=== PATIENT | female | born 1935 | race Caucasian/White ===

== ENCOUNTER → 2016-09-16 | Outpatient (CLI) | payer MEDICARE ==
--- NOTE | 2016-09-16 14:16 | MM ---
Reason for exam: screening (asymptomatic). Last mammogram was performed 1 year and 1 month ago. History: Patient is postmenopausal. Family history of breast cancer in paternal aunt at age 70. Benign stereotactic core biopsy of the right breast, March 23, 1999. Core biopsy of the right breast. Took hormonal contraceptives for 3 years. Physical Findings: A clinical breast exam by your physician is recommended on an annual basis and results should be correlated with mammographic findings. MG Screening Mammo w CAD Bilateral CC and MLO view(s) were taken. Prior study comparison: August 18, 2015, bilateral MG screening mammo w CAD. July 14, 2014, bilateral MG screening mammo w CAD. There are scattered fibroglandular densities. Finding: There are typically benign vascular, round calcifications in both breasts. Previous mammotome biopsy in the right breast. There is no discrete abnormality. ASSESSMENT: Benign, BI-RAD 2 RECOMMENDATION: Routine screening mammogram of both breasts in 1 year.
== END | disposition home or self-care (01) ==
LOC: RADMAMWWP 10:36
PROVIDERS: ATTEND Internal Medicine
DX: Z12.31 Encounter for screening mammogram for malignant neoplasm of breast (principal)

== ENCOUNTER → 2016-12-16 | Outpatient (CLI) | payer MEDICARE | END | disposition home or self-care (01) | LOC: LABWHC1 12:41 → EDSTATUS 12:59 | PROVIDERS: ATTEND Internal Medicine | DX: Z00.00 Encounter for general adult medical examination without abnormal findings (principal); E87.8 Other disorders of electrolyte and fluid balance, not elsewhere classified; E78.5 Hyperlipidemia, unspecified; I10 Essential (primary) hypertension; M81.0 Age-related osteoporosis without current pathological fracture; E55.9 Vitamin D deficiency, unspecified | CPT/HCPCS: 36415; 82272 ==

== ENCOUNTER → 2016-12-21 | Outpatient (CLI) | payer MEDICARE ==
[2016-12-21 10:28] LABS: Basophils # (A) 0.1 k/uL (0-0.2); Basophils % (A) 1 %; CH 31.9; CHCM 32.8; Eosinophils # (A) 0.1 k/uL (0-0.7); Eosinophils % (A) 1 %; HDW 2.23; HGB 13.1 gm/dL (11.4-16.0); Luc # (Auto) 0.14; Luc % (Auto) 2; Lymphocytes # (A) 1.2 k/uL (1.0-4.8); Lymphocytes % (A) 19 %; MCH 31.8 pg (25.0-35.0); MCHC 32.6 g/dL (31.0-37.0); MCV 97.6 fL (80.0-100.0); Mean Platelet Volume 7.7; Monocytes # (A) 0.4 k/uL (0-1.0); Monocytes % (A) 6 %; Neutrophils # (A) 4.4 k/uL (1.3-7.7); Neutrophils % (A) 70 %; RDW 13.1 % (11.5-15.5); WBC 6.2 k/uL (3.8-10.6); WBC (Perox) 6.11
[2016-12-21 10:41] LABS: ALT 25 U/L (9-52); AST 28 U/L (14-36); Alkaline Phosphatase 64 U/L (38-126); Blood Urea Nitrogen 33 mg/dL (7-17); Calcium 9.9 mg/dL (8.4-10.2); Carbon Dioxide 28 mmol/L (22-30); Chloride 107 mmol/L (98-107); Cholesterol 233 mg/dL (<200); Creatine Kinase 417 U/L (30-135); Glucose 106 mg/dL (74-99); HDL Cholesterol 67 mg/dL (40-60); Non-African American GFR(MDRD) 38 (>60 ml/min/1.73 sqM); Potassium 5.8 mmol/L (3.5-5.1); Total Bilirubin 0.7 mg/dL (0.2-1.3); Total Protein 7.5 g/dL (6.3-8.2); Triglycerides 154 mg/dL (<150)
[2016-12-21 10:44] LABS: Anion Gap 7 mmol/L; Sodium 142 mmol/L (137-145)
[2016-12-21 12:06] LABS: Hemoglobin A1C 5.9 % (4.2-6.1)
[2016-12-21 14:12] LABS: C Reactive Protein <5.0 mg/L (<10.0)
[2016-12-21 14:32] LABS: Erythrocyte Sedimentation Rate 17 mm/hr (0-20)
== END | disposition home or self-care (01) ==
LOC: LABWHC1 09:32
PROVIDERS: ATTEND Internal Medicine
DX: Z00.00 Encounter for general adult medical examination without abnormal findings (principal); E87.8 Other disorders of electrolyte and fluid balance, not elsewhere classified; E78.5 Hyperlipidemia, unspecified; I10 Essential (primary) hypertension; M81.0 Age-related osteoporosis without current pathological fracture; E55.9 Vitamin D deficiency, unspecified
CPT/HCPCS: 36415; 80053; 80061; 82306; 82550; 83036; 84443; 85025; 85652; 86140

== ENCOUNTER → 2017-01-11 | Outpatient (CLI) | payer MEDICARE ==
--- NOTE | 2017-01-11 13:52 | US ---
EXAMINATION TYPE: US kidneys/renal and bladder DATE OF EXAM: 01/11/2017 COMPARISON: NONE CLINICAL HISTORY: N18.3 Chronic Kidney Disease Stage 3, N13.9 Obstructive Uropathy,. EXAM MEASUREMENTS: Right Kidney: 8.9 x 5.7 x 4.4 cm Left Kidney: 8.9 x 4.1m x 5.1 cm Post Void Residual Volume: 17.3 mL Right Kidney: No hydronephrosis or masses seen Left Kidney: No hydronephrosis or masses seen Bladder: Bilateral Jets seen: only right jet was seen after 3 minute observation Normal Post Void Residual: Yes There is no evidence for hydronephrosis at this point in time. No nephrolithiasis is seen. No abdi s are identified on images saved. The urinary bladder is not greatly distended. Distal left jet is not seen. IMPRESSION: Kidneys are symmetric and slightly small in size, no hydronephrosis is evident bilaterally.
[2017-01-11 14:18] LABS: Magnesium 1.7 mg/dL (1.6-2.3); Potassium 4.2 mmol/L (3.5-5.1)
== END | disposition home or self-care (01) ==
LOC: RADUSWWP 12:35
PROVIDERS: ATTEND Internal Medicine
DX: N27.1 Small kidney, bilateral (principal); N18.3 Chronic kidney disease, stage 3 (moderate); N13.9 Obstructive and reflux uropathy, unspecified; E87.5 Hyperkalemia
CPT/HCPCS: 36415; 76770; 83735; 84132

== ENCOUNTER → 2017-07-12 | Outpatient (CLI) | payer MEDICARE | END | disposition home or self-care (01) | LOC: LABWHC1 11:30 | PROVIDERS: ATTEND Internal Medicine | DX: E55.9 Vitamin D deficiency, unspecified (principal); E53.8 Deficiency of other specified B group vitamins | CPT/HCPCS: 36415; 82306; 82607 ==

== ENCOUNTER → 2018-07-25 | Outpatient (CLI) | payer MEDICARE ==
--- NOTE | 2018-07-26 08:50 | MM ---
Reason for exam: screening (asymptomatic). Last mammogram was performed 1 year and 10 months ago. History: Patient is postmenopausal. Family history of breast cancer in paternal aunt at age 70. Benign stereotactic core biopsy of the right breast, March 23, 1999. Core biopsy of the right breast. Took hormonal contraceptives for 3 years. Physical Findings: A clinical breast exam by your physician is recommended on an annual basis and results should be correlated with mammographic findings. MG Screening Mammo w CAD Bilateral CC and MLO view(s) were taken. Prior study comparison: September 16, 2016, bilateral MG screening mammo w CAD. August 18, 2015, bilateral MG screening mammo w CAD. The breast tissue is heterogeneously dense. This may lower the sensitivity of mammography. There are benign appearing round calcifications bilaterally. Previous mammotome biopsy in the right breast. There is no discrete abnormality. ASSESSMENT: Benign, BI-RAD 2 RECOMMENDATION: Routine screening mammogram of both breasts in 1 year.
== END | disposition home or self-care (01) ==
LOC: RADMAMWWP 11:04
PROVIDERS: ATTEND Internal Medicine
DX: Z12.31 Encounter for screening mammogram for malignant neoplasm of breast (principal)
CPT/HCPCS: 77067

== ENCOUNTER → 2019-05-07 | Outpatient (CLI) | payer MEDICARE ==
--- NOTE | 2019-05-07 13:04 | US ---
EXAMINATION TYPE: US carotid duplex BILAT DATE OF EXAM: 05/07/2019 COMPARISON: NONE CLINICAL HISTORY: I65.2 carotid bruit. Right carotid bruit per order EXAM MEASUREMENTS: RIGHT: Peak Systolic Velocity (PSV) cm/sec ----- Right CCA: 67.7 ----- Right ICA: 125.4 ----- Right ECA: 190.5 ICA/CCA ratio: 1.9 RIGHT: End Diastole cm/sec ----- Right CCA: 18.4 ----- Right ICA: 32.7 ----- Right ECA: 20.9 LEFT: Peak Systolic Velocity (PSV) cm/sec ----- Left CCA: 60.2 ----- Left ICA: 86.3 ----- Left ECA: 79.6 ICA/CCA ratio: 1.4 LEFT: End Diastole cm/sec ----- Left CCA: 14.8 ----- Left ICA: 25.4 ----- Left ECA: 0.0 VERTEBRALS (direction of flow): Right Vertebral: Antegrade Left Vertebral: Antegrade Rhythm: Normal Moderate, irregular plaques is imaged at bilateral carotid bifurcation, and abnormally elevated PSV i s noted in Right ICA and Right ECA. IMPRESSION: 1. 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 CTA neck is recommended for more asse ssment of degree of stenosis. 2. No sonographic evidence of hemodynamically significant stenosis within the visualized left carotid arterial system. Criteria for Assigning % of Stenosis / Diameter reduction (Estimation based on the indirect measurements of the internal carotid artery velocities (ICA PSV). 1. Normal (no stenosis)=ICA PSV < 125 cm/s: ratio < 2.0: ICA EDV<40 cm/s. 2. Less than 50% stenosis=ICA PSV < 125 cm/s: ratio < 2.0: ICA EDV<40 cm/s. 3. 50 to 69% stenosis=ICA PSV of 125 to 230 cm/s: ration 2.0 ? 4.0: ICA EDV 40-100 cm/s. 4. Greater than 70% stenosis to near occlusion= ICA PSV > 230 cm/s: ratio > 4.0: ICA EDV > 100 cm/s. 5. Near occlusion= ICA PSV velocities may be low or undetectable: variable ratio and ICA EDV. 6. Total occlusion=unable to detect flow.
[2019-05-07 17:30] LABS: Protein, Total 6.8 g/dL (6.2-8.2)
[2019-05-07 17:55] LABS: Rheumatoid Factor <4 IU/mL (0-15)
[2019-05-07 19:38] LABS: Hemoglobin A1C 5.8 % (4.0-6.0)
--- NOTE | 2019-05-08 08:43 | MR ---
EXAMINATION TYPE: MR brain wo con DATE OF EXAM: 05/07/2019 COMPARISON: NONE HISTORY: gait abnormality TECHNIQUE: Multiplanar, multisequence images of the brain and brainstem is performed without intravenous contras t. FINDINGS: Diffusion weighted images demonstrate no evidence of a recent infarct or other diffusion ab normality. There is no extra-axial fluid collection. The ventricular system and cisternal spaces are prominent with the degree of ventricular dilatation slightly larger than expected for the degree of sulcal prominence. Findings raise suspicion for normal pressure hydrocephalus as the cerebral aqueduc t appears patent as is the fourth ventricle. Pituitary gland appears within normal limits of size. Th ere is no cerebellar tonsillar ectopia seen. No flattening of the globes. No findings suggesting incr eased intracranial pressure. There is an extra-axial lesion that is isointense to rudolph matter on T2-weighted imaging and FLAIR seq uences most likely related to a benign meningioma. This is seen in the left frontal region on FLAIR a nd axial fat sat image 20 measuring 0.9 x 0.5 cm. There are confluent periventricular T2/hyperintense white matter changes and numerous other scattered foci within the deep white matter and juxtacortical white matter, overall moderate burden. Punctate focus is also seen in the left cerebellar hemisphere near its inferior margin. Midline structures demonstrate normal morphology. The craniocervical junction appears within normal limits. Air-fluid level is seen within the left maxillary sinus with moderate mucosal thickening. Mild mucosa l thickening is seen in the right maxillary sinus and ethmoid sinus as well as within the frontal sin uses and scattered mucosal thickening is present in the sphenoid sinuses. There is partial opacificat ion of the mastoid air cells, left greater than right. IMPRESSION: 1. Enlarged ventricles without evidence of obstruction of the cerebral aqueduct or fourth ventricle. Consider normal pressure hydrocephalus. 2. Air-fluid of the left maxillary sinus suggests acute sinusitis with mucosal thickening throughout the remainder of the sinuses. 3. Partial opacification of the mastoid air cells can be seen in mastoiditis. Correlate for point ten derness. Evaluation of the middle ear cavities is recommended with direct visualization to evaluate f or otomastoiditis. 4. Left frontal subcentimeter extra-axial mass has characteristics most suggestive of a meningioma, w hich could be further characterized with contrast-enhanced MR to assess for homogeneous enhancement. No current mass effect is seen on the adjacent gyri. 5. Moderate burden nonspecific white matter change, most commonly on the basis of microangiopathy.
[2019-05-08 10:43] LABS: Albumin 3.77 g/dL (3.80-4.90); Gamma Globulin 0.92 g/dL (0.70-1.50)
== END | disposition home or self-care (01) ==
LOC: RADUSWWP 10:37
PROVIDERS: ATTEND Psychiatry & Neurology Neurology
DX: G91.2 (Idiopathic) normal pressure hydrocephalus (principal); R41.0 Disorientation, unspecified; R53.1 Weakness; R26.9 Unspecified abnormalities of gait and mobility; R09.89 Other specified symptoms and signs involving the circulatory and respiratory systems
CPT/HCPCS: 70551; 82550; 82607; 83036; 84165; 85652; 86038; 86334; 86431; 93880

== ENCOUNTER → 2019-05-16 | Outpatient (CLI) | payer MEDICARE ==
--- NOTE | 2019-05-16 12:02 | MR ---
EXAMINATION TYPE: MR brain w con DATE OF EXAM: 05/16/2019 COMPARISON: 05/07/2019, CT scan 03/08/2013 HISTORY: Abnormal gait, memory loss, abnormal MRI TECHNIQUE: Multiplanar, multisequence images of the brain and brainstem is performed with IV contrast, utilizin g 6 mL intravenous Gadavist . FINDINGS: Diffusion weighted images demonstrate no evidence of a recent infarct or other diffusion ab normality. The ventricular system and cisternal spaces are prominent with the degree of ventricular dilatation slightly larger than expected for the degree of sulcal prominence. Findings raise suspicio n for normal pressure hydrocephalus as the cerebral aqueduct appears patent as is the fourth ventricl e. Pituitary gland appears within normal limits of size. There is no cerebellar tonsillar ectopia see n. No flattening of the globes. There is an extra-axial lesion that is isointense to rudolph matter on T2-weighted imaging and FLAIR seq uences most likely related to a benign meningioma. This is seen in the left frontal region on FLAIR a nd axial fat sat image 20 measuring 0.9 x 0.5 cm. There are confluent periventricular T2/hyperintense white matter changes and numerous other scattered foci within the deep white matter and juxtacortical white matter, overall moderate burden. Punctate focus is also seen in the left cerebellar hemisphere near its inferior margin. Changes of chronic sinusitis noted. There is reduced enhancement within the body of the pituitary gla nd and the sagittal postcontrast image. IMPRESSION: 1. Enlarged ventricles without evidence of obstruction of the cerebral aqueduct or fourth ventricle. Consider normal pressure hydrocephalus. 2. . Left frontal subcentimeter extra-axial mass has characteristics consistent with a meningioma wit h mild mass effect upon on the adjacent cortex. Retrospectively this was present on the CT scan of e brain dated 03/08/2013 and is essentially unchanged in size 3. Moderate burden nonspecific white matter change, most commonly on the basis of microangiopathy. 4. Suspect a 5 mm or less pituitary microadenoma.
== END | disposition home or self-care (01) ==
LOC: RADMRIMAIN 08:50
PROVIDERS: ATTEND Psychiatry & Neurology Neurology
DX: G93.9 Disorder of brain, unspecified (principal); R90.89 Other abnormal findings on diagnostic imaging of central nervous system; R26.9 Unspecified abnormalities of gait and mobility; R26.89 Other abnormalities of gait and mobility; R41.3 Other amnesia
CPT/HCPCS: 70552; A9585

== ENCOUNTER 2019-08-18 17:37 | Emergency (ER) | payer MEDICARE ==
--- NOTE | 2019-08-18 18:48 | ED ---
General Adult HPI - General Chief complaint: Extremity Injury, Upper Stated complaint: Fall Time Seen by Provider: 08/18/19 18:04 Source: patient, RN notes reviewed Mode of arrival: ambulatory Limitations: no limitations - History of Present Illness Initial comments: 84-year-old female with a past medical history of hyperlipidemia, hypertension, dementia presents to the emergency department for a chief complaint of left hand bruising. Patient states that she was walking [place] when she fell last night. Patient states she has numbness of the left leg which is chronic and she sees neurology for in her legs gave out. This is usual for patient. She did not have any lightheadedness or chest pain preceding this fall. Patient fell onto the left hand causing bruising. Notes there is also some mild bruising to the left elbow. Patient states she is not having any pain and did not want to come by her family made her. She denies any hip pain. Denies having had any back pain at home. Patient is ambulatory to baseline. She did not hit her head. She is not on blood thinners.Patient has no other complaints at this time including shortness of breath, chest pain, abdominal pain, nausea or vomiting, headache, or visual changes. - Related Data Allergies Allergy/AdvReac Type Severity Reaction Status Date / Time acetaminophen [From Vicodin] Allergy Unknown Verified 08/18/19 18:01 hydrocodone [From Vicodin] Allergy Unknown Verified 08/18/19 18:01 Review of Systems ROS Statement: Those systems with pertinent positive or pertinent negative responses have been documented in the HPI. ROS Other: All systems not noted in ROS Statement are negative. Past Medical History Past Medical History: Dementia, Hyperlipidemia, Hypertension History of Any Multi-Drug Resistant Organisms: None Reported Past Surgical History: Hysterectomy Past Psychological History: No Psychological Hx Reported Smoking Status: Never smoker Past Alcohol Use History: Occasional Past Drug Use History: None Reported General Exam - General Exam Comments Initial Comments: Left elbow: Patient is having full range motion of the left elbow. There is small contusion. There is no tenderness. Limitations: no limitations General appearance: alert, in no apparent distress Head exam: Present: atraumatic, normocephalic, normal inspection Eye exam: Present: normal appearance, PERRL, EOMI. Absent: scleral icterus, conjunctival injection, periorbital swelling ENT exam: Present: normal exam, mucous membranes moist Neck exam: Present: normal inspection, full ROM. Absent: tenderness, meningismus, lymphadenopathy Respiratory exam: Present: normal lung sounds bilaterally. Absent: respiratory distress, wheezes, rales, rhonchi, stridor Cardiovascular Exam: Present: regular rate, normal rhythm, normal heart sounds. Absent: systolic murmur, diastolic murmur, rubs, gallop, clicks Extremities exam: Present: full ROM (Full range of motion of the left hand), normal capillary refill (Capillary refill less than 2 seconds in the left upper extremity. Radial pulses 2+.), other (Contusion noted to the dorsum of the left hand.). Absent: tenderness (No tenderness noted to the left hand.) Back exam: Absent: CVA tenderness (R), CVA tenderness (L), vertebral tenderness Neurological exam: Present: alert, normal gait (Pt is ambulatory without difficulty) Course Vital Signs 08/18/19 17:57 Temperature 99.0 F Pulse Rate 74 Respiratory 18 Rate Blood Pressure 184/83 O2 Sat by Pulse 97 Oximetry Medical Decision Making - Medical Decision Making X-ray of the left hand shows diffuse soft tissue swelling without acute osseous injury. Patient's ring was removed. At this time patient can follow up with primary care or return if she has any worsening symptoms. Disposition Clinical Impression: Contusion of hand, left Disposition: HOME SELF-CARE Condition: Good Instructions (If sedation given, give patient instructions): Contusion in Adults (ED) Additional Instructions: Please take Tylenol for pain. Please follow-up with primary care in 1-2 days. Return to the emergency department if you have any worsening symptoms. Is patient prescribed a controlled substance at d/c from ED?: No Referrals: Nic Contreras MD [Primary Care Provider] - 1-2 days Time of Disposition: 19:26
--- NOTE | 2019-08-18 18:52 | XR ---
EXAMINATION TYPE: XR hand complete LT DATE OF EXAM: 08/18/2019 COMPARISON: None HISTORY: Edema, fall TECHNIQUE: Three-view left hand FINDINGS: There is mild soft tissue swelling over the ulnar aspect of the hand. Patient's ring is on during the exam There is loss of joint space throughout the hand joints. No acute fractures are evident. IMPRESSION: 1. Diffuse soft tissue swelling. 2. Degenerative joint changes. 3. No acute osseous abnormality.
[2019-08-18 19:31] VITALS: BP 171/88; PULSE 78; RESP 17; TEMP 98.9
== END 2019-08-18 19:31 | disposition home or self-care (01) ==
LOC: EC 17:37
DX: S60.222A Contusion of left hand, initial encounter (principal); R20.0 Anesthesia of skin; Z88.5 Allergy status to narcotic agent; Z88.6 Allergy status to analgesic agent; W01.0XXA Fall on same level from slipping, tripping and stumbling without subsequent striking against object, initial encounter; Y93.01 Activity, walking, marching and hiking
CPT/HCPCS: 99283

== ENCOUNTER → 2019-08-20 | Outpatient (CLI) | payer MEDICARE ==
--- NOTE | 2019-08-20 19:03 | MR ---
EXAMINATION TYPE: MR lumbar spine wo con DATE OF EXAM: 08/20/2019 COMPARISON: NONE HISTORY: LBP, Bilat S1 radiculopathy, left L5 radiculopathy all per order. Back pain for years into b ack of thigh. TECHNIQUE: Multiplanar, multisequence imaging of the lumbar spine is performed without IV contrast. FINDINGS: Sagittal images of the lumbar spine show vertebral body heights to appear satisfactory. The re is grade 1 anterolisthesis of L3 on L4 and L4 on L5. Multilevel disc desiccation is present. There is advanced disc space narrowing L3-L4 level with heterogeneous Modic type II endplate changes. Ther e is moderate disc space narrowing L4-L5 and L5-S1 levels with moderate spurring. There is mild-to-mo derate disc space narrowing L2-L3 level. The conus medullaris is normal in position and signal ending inferior T12 level. Heterogeneous endplate changes lower lumbar spine are noted. Axial images began at labeled T11-T12 level along the T12-L1 levels show mild facet degenerative faith ges bilaterally. Axial images at L1-L2 level show mild broad disc bulge and mild facet degenerative changes with ligam entum flavum hypertrophy bilaterally on image 23. Axial images at L2-L3 level show moderate broad disc bulge and mild/moderate facet degenerative parra es bilaterally with some effacement of the anterior and posterior lateral thecal sac. There is mild r ight and [id number] left-sided neural foraminal narrowing noted. Axial images at L3-L4 level shows spondylosis with moderate to advanced broad disc bulge effacing ant erior thecal sac. There is moderate to advanced facet degenerative changes and ligamentum flavum hype rtrophy effacing the posterior lateral thecal sac. There is moderate left and mild right-sided neural foraminal narrowing noted. Axial images at L4-L5 level shows spondylosis with advanced broad disc bulge. There is advanced facet degenerative changes and ligament flavum hypertrophy causing most prominent spinal canal stenosis at this level axial image 8 and causing moderate bilateral neural foraminal narrowing. Axial images at L5-S1 level show moderate to advanced facet degenerative changes bilaterally with bro ad base left paracentral disc protrusion minimally effacing and 12 thecal sac and causing advanced le ft-sided neural foraminal narrowing with left foraminal disc protrusion component seen sagittal image 2 and axial image 4 pacing exiting left L5 nerve. Moderate to severe inferior right-sided neural for aminal narrowing encroaches along the inferior margin right L5 nerve sagittal image 10. Simple appearing 1.3 cm renal cyst upper pole left kidney axial image 30 is present. IMPRESSION: Multilevel spondylolisthesis and degenerative changes most prominent at L3-L4 through the L5-S1 levels. Most prominent spinal canal stenosis is noted L4-L5 level. L5-S1 level shows bilateral disc herniations causing advanced bilateral neural foraminal narrowing worse on the left with bilate ral L5 effacement. Further details as discussed above.
== END | disposition home or self-care (01) ==
LOC: RADMRIMAIN 13:44
PROVIDERS: ATTEND Psychiatry & Neurology Neurology
DX: M48.07 Spinal stenosis, lumbosacral region (principal); M48.061 Spinal stenosis, lumbar region without neurogenic claudication; M43.16 Spondylolisthesis, lumbar region; M47.27 Other spondylosis with radiculopathy, lumbosacral region; M47.26 Other spondylosis with radiculopathy, lumbar region; M51.16 Intervertebral disc disorders with radiculopathy, lumbar region; R79.9 Abnormal finding of blood chemistry, unspecified
CPT/HCPCS: 72148; 82550

== ENCOUNTER 2019-09-04 14:46 | Emergency (ER) | payer MEDICARE ==
[2019-09-04] MEDS ORDERED: hydrALAZINE HCL 20 MG/ML 1 ML VIAL IVP STA (15:13)
--- NOTE | 2019-09-04 15:33 | ED ---
General Adult HPI - General Chief complaint: Recheck/Abnormal Lab/Rx Stated complaint: hypertension Time Seen by Provider: 09/04/19 14:56 Source: patient Mode of arrival: EMS Limitations: no limitations - History of Present Illness Initial comments: Dictation was produced using [employer] dictation software. please excuse any grammatical, word or spelling errors. Chief Complaint: 84-year-old female past medical history dementia, dyslipidemia hypertension presents with elevated blood pressure and frequent falls. History of Present Illness: 84-year-old female she is brought in by EMS. Patient is accompanied by her family members. They report that she lives at home by herself. She has multiple visitations by various healthcare workers at check up on her. She was being visited by physical therapist today who reports that patient had elevated blood pressure. EMS was called patient is brought to the emergency department. Family reports that patient has the beginning stages of dementia. Still lives at home and experiences frequent falls. Patient reports that she fell today. She was really quite remember all the details of the fall today. Patient is a poor historian. Family is working on trying to get patient admitted to a group home. Patient denies chest pain shortness of breath or strokelike symptoms. No headache. The ROS documented in this emergency department record has been reviewed and confirmed by me. Those systems with pertinent positive or negative responses have been documented in the HPI. All other systems are other negative and/or noncontributory. PHYSICAL EXAM: General Impression: Alert and oriented x3, not in acute distress HEENT: Normocephalic atraumatic, extra-ocular movements intact, pupils equal and reactive to light bilaterally, mucous membranes moist. Cardiovascular: Heart regular rate and rhythm, S1&S2 audible, no murmurs, rubs or gallops Chest: Lungs clear to auscultation bilaterally, no rhonchi, no wheeze, no rales Abdomen: Bowel sounds present, abdomen soft, non-tender, non-distended, no organomegaly Musculoskeletal: Pulses present and equal in all extremities, no peripheral edema Motor: no focal deficits noted Neurological: CN II-XII grossly intact, no focal motor or sensory deficits noted Skin: Bruising to the bilateral lower extremities Psych: Normal affect and mood ED course: 84-year-old female presents with elevated blood pressure. Family at bedside reports that they're concerned about a ravine because of her frequent falls. Signs upon arrival shows blood pressure to 9/99, worse vital signs within acceptable limits. Clinical presentation consistent with asymptomatic hypertension. She does have established history of high blood pressure. Given patient's mental status or strong suspicion that patient's not taking her medications as prescribed. Patient given a small dose of antihypertensive. Laboratory evaluation obtained. CBC, coag panel, metabolic panel stable. Computed tomography scan of the head chest x-ray and pelvis x-ray shows no traumatic injuries. Patient observed in emergency department for several hours with no changes in medical status. She is well-appearing and in seems comfortable. Discussed patient case in detail with primary care physician Dr. Contreras who wants patient to be discharged with arrangement for likely group home placement on an outpatient basis. Discussed plan with family. They are all on board. They are instructed to follow-up with Dr. Contreras as soon as possible. EKG interpretation: Ventricular rate 64, normal sinus rhythm,. Interval to 4, care is 80, QTc 439. No MI prolongation, no QTC prolongation, no ST or T-wave changes noted. Overall, this EKG is unremarkable - Related Data Allergies Allergy/AdvReac Type Severity Reaction Status Date / Time acetaminophen [From Vicodin] Allergy Unknown Verified 09/04/19 14:58 hydrocodone [From Vicodin] Allergy Unknown Verified 09/04/19 14:58 Review of Systems ROS Statement: Those systems with pertinent positive or pertinent negative responses have been documented in the HPI. ROS Other: All systems not noted in ROS Statement are negative. Past Medical History Past Medical History: Dementia, Hyperlipidemia, Hypertension History of Any Multi-Drug Resistant Organisms: None Reported Past Surgical History: Hysterectomy Past Psychological History: No Psychological Hx Reported Smoking Status: Never smoker Past Alcohol Use History: Occasional Past Drug Use History: None Reported General Exam Limitations: no limitations Course Vital Signs 09/04/19 09/04/19 09/04/19 14:52 15:00 15:30 Temperature 98.4 F Pulse Rate 64 64 66 Respiratory 16 17 16 Rate Blood Pressure 209/99 209/99 190/91 O2 Sat by Pulse 99 98 99 Oximetry 09/04/19 16:00 Temperature Pulse Rate 75 Respiratory 16 Rate Blood Pressure 197/94 O2 Sat by Pulse 99 Oximetry Medical Decision Making - Lab Data Result diagrams: 09/04/19 15:00 09/04/19 15:00 Lab Results 09/04/19 09/04/19 09/04/19 Range/Units 15:00 15:00 15:00 WBC 7.6 (3.8-10.6) k/uL RBC 3.38 L (3.80-5.40) m/uL Hgb 10.4 L (11.4-16.0) gm/dL Hct 32.9 L (34.0-46.0) % MCV 97.3 (80.0-100.0) fL MCH 30.7 (25.0-35.0) pg MCHC 31.5 (31.0-37.0) g/dL RDW 13.8 (11.5-15.5) % Plt Count 505 H (150-450) k/uL Neutrophils % 77 % Lymphocytes % 12 % Monocytes % 7 % Eosinophils % 1 % Basophils % 1 % Neutrophils # 5.9 (1.3-7.7) k/uL Lymphocytes # 0.9 L (1.0-4.8) k/uL Monocytes # 0.5 (0-1.0) k/uL Eosinophils # 0.1 (0-0.7) k/uL Basophils # 0.1 (0-0.2) k/uL PT 9.8 (9.0-12.0) sec INR 0.9 (<1.2) APTT 24.2 (22.0-30.0) sec Sodium 138 (137-145) mmol/L Potassium 3.9 (3.5-5.1) mmol/L Chloride 104 (98-107) mmol/L Carbon Dioxide 27 (22-30) mmol/L Anion Gap 7 mmol/L BUN 22 H (7-17) mg/dL Creatinine 1.09 H (0.52-1.04) mg/dL Est GFR (CKD-EPI)AfAm 55 (>60 ml/min/1.73 sqM) Est GFR (CKD-EPI)NonAf 48 (>60 ml/min/1.73 sqM) Glucose 118 H (74-99) mg/dL Calcium 9.0 (8.4-10.2) mg/dL Magnesium 2.0 (1.6-2.3) mg/dL Total Bilirubin 0.6 (0.2-1.3) mg/dL AST 36 (14-36) U/L ALT 17 (4-34) U/L Alkaline Phosphatase 65 (38-126) U/L Total Protein 6.6 (6.3-8.2) g/dL Albumin 3.7 (3.5-5.0) g/dL Disposition Clinical Impression: Falls, Asymptomatic hypertension Disposition: HOME SELF-CARE Condition: Good Instructions (If sedation given, give patient instructions): Fall Prevention for Older Adults (ED) Is patient prescribed a controlled substance at d/c from ED?: No Referrals: Nic Contrersa MD [Primary Care Provider] - 1-2 days Time of Disposition: 16:47
[2019-09-04 15:45] LABS: Basophils # (A) 0.1 k/uL (0-0.2); Basophils % (A) 1 %; Eosinophils # (A) 0.1 k/uL (0-0.7); Eosinophils % (A) 1 %; HCT 32.9 % (34.0-46.0); HGB 10.4 gm/dL (11.4-16.0); Lymphocytes # (A) 0.9 k/uL (1.0-4.8); Lymphocytes % (A) 12 %; MCH 30.7 pg (25.0-35.0); MCHC 31.5 g/dL (31.0-37.0); MCV 97.3 fL (80.0-100.0); Mean Platelet Volume 7.5; Monocytes # (A) 0.5 k/uL (0-1.0); Monocytes % (A) 7 %; Neutrophils # (A) 5.9 k/uL (1.3-7.7); Neutrophils % (A) 77 %; Platelet Count 505 k/uL (150-450); RBC 3.38 m/uL (3.80-5.40); RDW 13.8 % (11.5-15.5); WBC 7.6 k/uL (3.8-10.6)
[2019-09-04 15:56] LABS: INR 0.9 (<1.2); Partial Thromboplastin Time 24.2 sec (22.0-30.0); Prothrombin Time 9.8 sec (9.0-12.0)
[2019-09-04 16:04] LABS: Albumin 3.7 g/dL (3.5-5.0); Potassium 3.9 mmol/L (3.5-5.1); Total Bilirubin 0.6 mg/dL (0.2-1.3); Total Protein 6.6 g/dL (6.3-8.2)
--- NOTE | 2019-09-04 16:31 | XR ---
EXAMINATION TYPE: XR pelvis AP view DATE OF EXAM: 09/04/2019 CLINICAL HISTORY: Pelvic pain after fall injury. TECHNIQUE: A single AP view of the pelvis is obtained. COMPARISON: None. FINDINGS: There is no acute fracture/dislocation evident in the pelvis. Asymmetric moderate narrowin g right hip joint. Sacroiliac joints are maintained. Right-sided pelvic phlebolith noted. Pubic symp hysis intact. Incidental moderate to severe narrowing and spurring visualized lower lumbar spine. IMPRESSION: There is no acute fracture or dislocation in the pelvis.
--- NOTE | 2019-09-04 16:32 | XR ---
EXAMINATION TYPE: XR chest 1V portable DATE OF EXAM: 09/04/2019 COMPARISON: NONE HISTORY: Attention ball injury with chest pain. TECHNIQUE: Single AP portable frontal upright view of the chest is obtained. FINDINGS: Overlying EKG leads. There is no focal air space opacity, pleural effusion, or pneumothora x seen. The cardiac silhouette size is within normal limits with atherosclerotic change in aortic kn ob. The osseous structures are demineralized. IMPRESSION: No acute cardiopulmonary process.
--- NOTE | 2019-09-04 16:35 | CT ---
EXAMINATION TYPE: CT brain cspine wo con DATE OF EXAM: 09/04/2019 COMPARISON: CT brain March 08, 2013 HISTORY: Fall injury with headache and neck pain. CT DLP: 1295.5 mGycm. Automated Exposure Control for Dose Reduction was Utilized. TECHNIQUE: CT scan of the head and cervical spine are performed without contrast. FINDINGS: There is no acute intracranial hemorrhage or midline shift identified. Diffuse ventricula r and sulcal prominence. Low-attenuation in the periventricular white matter. Progression in findings from 2013 study. Calvarium is intact. Large mucous retention cyst or polyp posterior inferior left m axillary sinus is partially imaged. Cervical spine is visualized in its entirety from C1 through upper thoracic levels and demonstrates s traightened alignment without evidence of acute fracture or dislocation. Prevertebral soft tissue ap pears within normal limits. The C1-C2 articulation is within normal limits on the coronal images. T here is multilevel spondylosis with slight grade 1 anterolisthesis C2 on C3 and C3 on C4 with more pr ominent grade 1 anterolisthesis C4 on C5 and C5 on C6. Moderate disc space narrowing and spurring C4- C5 level with posterior spur disc complex effacing the anterior thecal sac is noted. Additional poste rior spur disc complex effacing the anterior thecal sac at C6-C7 level where there is [id number] e disc space narrowing and moderate to severe anterior spurring. Axial images show multilevel uncover tebral facet degenerative changes bilaterally causing multilevel neural foraminal narrowing greatest bilaterally at the C4-C5 level axial image 64. Moderate to severe calcified plaque left carotid bulb extends into proximal internal carotid artery. IMPRESSION: 1. There is no acute fracture or dislocation evident in the cervical spine. 2. No acute intracranial hemorrhage or midline shift is seen. Moderate diffuse cerebral atrophy and c hronic small vessel ischemic change with progression from 2013 CT noted.
[2019-09-04 17:18] VITALS: BP 152/76; PULSE 77; RESP 18; TEMP 98.2
[2019-09-04 17:36] LABS: Appearance,Urine Clear (Clear); Bilirubin,Urine Negative (Negative); Blood,Urine Trace (Negative); Color,Urine Light Yellow; Glucose,Urine (UA) Negative (Negative); Ketones,Urine Negative (Negative); Leukocyte Esterase,Urine Small (Negative); Mucus,Urine Rare /hpf; Nitrite,Urine Negative (Negative); Protein,Urine Negative (Negative); RBC,Urine 1 /hpf (0-5); Specific Gravity,Urine 1.007 (1.001-1.035); Squamous Epithelial Cell,Urine <1 /hpf (0-4); Urobilinogen,Urine <2.0 mg/dL (<2.0); WBC,Urine 4 /hpf (0-5)
== END 2019-09-04 17:17 | disposition home or self-care (01) ==
LOC: EC 14:46
DX: I10 Essential (primary) hypertension (principal); Z88.5 Allergy status to narcotic agent; Z88.6 Allergy status to analgesic agent
CPT/HCPCS: 36415; 93005; 80053; 83735; 85025; 85610; 85730; 81001; 72170; 71045; 72125; 70450; 99284; 96374; J0360

== ENCOUNTER 2020-05-01 23:57 | Inpatient (IN) | payer MEDICARE ==
[2020-05-02] MEDS ORDERED: SODIUM CHLORIDE 0.9% 1,000 ML IV STA ×3 (00:02→01:45)
[2020-05-02] MEDS ORDERED: SODIUM CHLORIDE 0.9% 500 ML 500 ML IV STA (00:02)
--- NOTE | 2020-05-02 00:03 | ED ---
GI Bleed HPI - General Stated complaint: upper GI bleed Time Seen by Provider: 05/02/20 00:02 Source: RN notes reviewed, old records reviewed - History of Present Illness Initial comments: This is an 85-year-old female DF for evaluation patient some coffee ground emesis with no history of GI bleed. Patient feeling weak. Dehydrated is vomiting for a few days of progressively worsening decreased level responsiveness and patient was now decreased responsiveness. Patient's brought in by EMS with a decreased level of responsiveness otherwise she is around she is alert. Patient is a poor strain secondary to level of consciousness MD complaint: coffee ground emesis -: days(s) Radiation: none Severity scale (1-10): 7 Quality: sharp Consistency: constant Improves with: none Worsens with: vomiting Context: history of GI bleed Associated Symptoms: nausea, vomiting, weakness - Related Data Allergies Allergy/AdvReac Type Severity Reaction Status Date / Time acetaminophen [From Vicodin] Allergy Unknown Verified 05/02/20 00:08 hydrocodone [From Vicodin] Allergy Unknown Verified 05/02/20 00:08 Review of Systems ROS Statement: Those systems with pertinent positive or pertinent negative responses have been documented in the HPI. ROS Other: All systems not noted in ROS Statement are negative. Past Medical History Past Medical History: Dementia, Hyperlipidemia, Hypertension History of Any Multi-Drug Resistant Organisms: None Reported Past Surgical History: Hysterectomy Past Psychological History: No Psychological Hx Reported Past Alcohol Use History: Occasional Past Drug Use History: None Reported General Exam Limitations: altered mental status, physical limitation General appearance: alert, lethargic Head exam: Present: atraumatic, normocephalic, normal inspection Eye exam: Present: normal appearance, PERRL, EOMI. Absent: scleral icterus, conjunctival injection, periorbital swelling ENT exam: Present: normal exam, mucous membranes moist Neck exam: Present: normal inspection. Absent: tenderness, meningismus, l ymphadenopathy Respiratory exam: Present: normal lung sounds bilaterally. Absent: respiratory distress, wheezes, rales, rhonchi, stridor Cardiovascular Exam: Present: regular rate, normal rhythm, normal heart sounds. Absent: systolic murmur, diastolic murmur, rubs, gallop, clicks GI/Abdominal exam: Present: soft, normal bowel sounds. Absent: distended, tenderness, guarding, rebound, rigid Extremities exam: Present: normal inspection, full ROM, normal capillary refill. Absent: tenderness, pedal edema, joint swelling, calf tenderness Back exam: Present: normal inspection Neurological exam: Present: alert, oriented X3, CN II-XII intact Psychiatric exam: Present: normal affect, normal mood Skin exam: Present: warm, dry, intact, normal color. Absent: rash Course Vital Signs 05/02/20 00:02 Temperature 97.6 F Pulse Rate 65 Respiratory 14 Rate Blood Pressure 100/81 O2 Sat by Pulse 90 L Oximetry - Reevaluation(s) Reevaluation #1: 05/02/20 01:41 Medical record is reviewed Reevaluation #2: 05/02/20 01:42 A shunt does appear to have GI bleed with severe dehydration, Reevaluation #3: 05/02/20 01:42 Patient is improving with hydration - Consultations Consultation #1: Spoke with Dr. Contreras to admit this patient Medical Decision Making - Medical Decision Making 85 female DF for evaluation of certain significant weakness upper GI bleed with severe dehydration. Patient will be admitted for resuscitation cardiopulmonary monitoring - Lab Data Result diagrams: 05/02/20 00:10 05/02/20 00:10 Lab Results 05/02/20 05/02/20 05/02/20 Range/Units 00:09 00:10 00:10 WBC 10.6 (3.8-10.6) k/uL RBC 4.80 (3.80-5.40) m/uL Hgb 14.3 (11.4-16.0) gm/dL Hct 43.8 (34.0-46.0) % MCV 91.1 (80.0-100.0) fL MCH 29.8 (25.0-35.0) pg MCHC 32.8 (31.0-37.0) g/dL RDW 13.2 (11.5-15.5) % Plt Count 422 (150-450) k/uL Neutrophils % (Manual) 33 % Band Neutrophils % 37 % Lymphocytes % (Manual) 26 % Monocytes % (Manual) 4 % Neutrophils # (Manual) 7.40 (1.3-7.7) k/uL Lymphocytes # (Manual) 2.76 (1.0-4.8) k/uL Monocytes # (Manual) 0.42 (0-1.0) k/uL Nucleated RBCs 0 (0-0) /100 WBC Manual Slide Review Performed PT 11.3 (9.0-12.0) sec INR 1.1 (<1.2) APTT 25.2 (22.0-30.0) sec Sodium (137-145) mmol/L Potassium (3.5-5.1) mmol/L Chloride (98-107) mmol/L Carbon Dioxide (22-30) mmol/L Anion Gap mmol/L BUN (7-17) mg/dL Creatinine (0.52-1.04) mg/dL Est GFR (CKD-EPI)AfAm (>60 ml/min/1.73 sqM) Est GFR (CKD-EPI)NonAf (>60 ml/min/1.73 sqM) Glucose (74-99) mg/dL Plasma Lactic Acid [place] (0.7-2.0) mmol/L Calcium (8.4-10.2) mg/dL Magnesium (1.6-2.3) mg/dL Total Bilirubin (0.2-1.3) mg/dL AST (14-36) U/L ALT (4-34) U/L Alkaline Phosphatase (38-126) U/L Ammonia (<30) umol/L Troponin I (0.000-0.034) ng/mL Total Protein (6.3-8.2) g/dL Albumin (3.5-5.0) g/dL Lipase (23-300) U/L Blood Type O Positive Blood Type Confirm Blood Type Recheck No Previous Record Bld Type Recheck Status CABO Indicated Antibody Screen NEGATIVE Spec Expiration Date 05/05/2020230905/02/20 05/02/20 05/02/20 Range/Units 00:10 00:10 00:10 WBC (3.8-10.6) k/uL RBC (3.80-5.40) m/uL Hgb (11.4-16.0) gm/dL Hct (34.0-46.0) % MCV (80.0-100.0) fL MCH (25.0-35.0) pg MCHC (31.0-37.0) g/dL RDW (11.5-15.5) % Plt Count (150-450) k/uL Neutrophils % (Manual) % Band Neutrophils % % Lymphocytes % (Manual) % Monocytes % (Manual) % Neutrophils # (Manual) (1.3-7.7) k/uL Lymphocytes # (Manual) (1.0-4.8) k/uL Monocytes # (Manual) (0-1.0) k/uL Nucleated RBCs (0-0) /100 WBC Manual Slide Review PT (9.0-12.0) sec INR (<1.2) APTT (22.0-30.0) sec Sodium 124 L (137-145) mmol/L Potassium 3.9 (3.5-5.1) mmol/L Chloride 78 L (98-107) mmol/L Carbon Dioxide 30 (22-30) mmol/L Anion Gap 16 mmol/L BUN 115 H* (7-17) mg/dL Creatinine 3.32 H (0.52-1.04) mg/dL Est GFR (CKD-EPI)AfAm 14 (>60 ml/min/1.73 sqM) Est GFR (CKD-EPI)NonAf 12 (>60 ml/min/1.73 sqM) Glucose 177 H (74-99) mg/dL Plasma Lactic Acid [place] 2.3 H* (0.7-2.0) mmol/L Calcium 8.8 (8.4-10.2) mg/dL Magnesium 2.4 H (1.6-2.3) mg/dL Total Bilirubin 0.7 (0.2-1.3) mg/dL AST 38 H (14-36) U/L ALT 13 (4-34) U/L Alkaline Phosphatase 47 (38-126) U/L Ammonia <9 (<30) umol/L Troponin I 0.440 H* (0.000-0.034) ng/mL Total Protein 5.6 L (6.3-8.2) g/dL Albumin 3.4 L (3.5-5.0) g/dL Lipase 96 (23-300) U/L Blood Type Blood Type Confirm Blood Type Recheck Bld Type Recheck Status Antibody Screen Spec Expiration Date 05/02/20 Range/Units 00:14 WBC (3.8-10.6) k/uL RBC (3.80-5.40) m/uL Hgb (11.4-16.0) gm/dL Hct (34.0-46.0) % MCV (80.0-100.0) fL MCH (25.0-35.0) pg MCHC (31.0-37.0) g/dL RDW (11.5-15.5) % Plt Count (150-450) k/uL Neutrophils % (Manual) % Band Neutrophils % % Lymphocytes % (Manual) % Monocytes % (Manual) % Neutrophils # (Manual) (1.3-7.7) k/uL Lymphocytes # (Manual) (1.0-4.8) k/uL Monocytes # (Manual) (0-1.0) k/uL Nucleated RBCs (0-0) /100 WBC Manual Slide Review PT (9.0-12.0) sec INR (<1.2) APTT (22.0-30.0) sec Sodium (137-145) mmol/L Potassium (3.5-5.1) mmol/L Chloride (98-107) mmol/L Carbon Dioxide (22-30) mmol/L Anion Gap mmol/L BUN (7-17) mg/dL Creatinine (0.52-1.04) mg/dL Est GFR (CKD-EPI)AfAm (>60 ml/min/1.73 sqM) Est GFR (CKD-EPI)NonAf (>60 ml/min/1.73 sqM) Glucose (74-99) mg/dL Plasma Lactic Acid [place] (0.7-2.0) mmol/L Calcium (8.4-10.2) mg/dL Magnesium (1.6-2.3) mg/dL Total Bilirubin (0.2-1.3) mg/dL AST (14-36) U/L ALT (4-34) U/L Alkaline Phosphatase (38-126) U/L Ammonia (<30) umol/L Troponin I (0.000-0.034) ng/mL Total Protein (6.3-8.2) g/dL Albumin (3.5-5.0) g/dL Lipase (23-300) U/L Blood Type Blood Type Confirm O Positive Blood Type Recheck Bld Type Recheck Status Antibody Screen Spec Expiration Date - EKG Data -: EKG Interpreted by Me (EKG shows sinus rhythm of 60 HI 152 QRS 96 QTc 569) Critical Care Time Critical Care Time: Yes Total Critical Care Time: 31 Disposition Clinical Impression: Gastrointestinal hemorrhage, Upper gastrointestinal hemorrhage, Dehydration, Weakness, ARF (acute renal failure) Disposition: ADMITTED IP TO THIS [facility] Condition: Serious Is patient prescribed a controlled substance at d/c from ED?: No Referrals: Nic Contreras MD [Primary Care Provider] - 1-2 days
[2020-05-02 00:25] LABS: HCT 43.8 % (34.0-46.0); HGB 14.3 gm/dL (11.4-16.0); MCH 29.8 pg (25.0-35.0); MCHC 32.8 g/dL (31.0-37.0); MCV 91.1 fL (80.0-100.0); Mean Platelet Volume 7.7; Platelet Count 422 k/uL (150-450); RDW 13.2 % (11.5-15.5); WBC 10.6 k/uL (3.8-10.6)
[2020-05-02 00:37] LABS: Albumin 3.4 g/dL (3.5-5.0); Calcium 8.8 mg/dL (8.4-10.2); Magnesium 2.4 mg/dL (1.6-2.3); Potassium 3.9 mmol/L (3.5-5.1); Total Bilirubin 0.7 mg/dL (0.2-1.3); Total Protein 5.6 g/dL (6.3-8.2)
[2020-05-02 00:38] LABS: INR 1.1 (<1.2); Partial Thromboplastin Time 25.2 sec (22.0-30.0); Prothrombin Time 11.3 sec (9.0-12.0)
[2020-05-02 00:43] LABS: Lactic Acid, Venous 2.3 mmol/L (0.7-2.0)
[2020-05-02 01:27] LABS: Band Neutrophils % 37 %; Lymphocytes # (M) 2.76 k/uL (1.0-4.8); Monocytes # (M) 0.42 k/uL (0-1.0); Neutrophils % (M) 33 %; Nucleated Red Blood Cells 0 /100 WBC (0-0); Total Cells Counted 200
[2020-05-02] MEDS ORDERED: PANTOPRAZOLE 40 MG TABLET PO STA (01:43)
[2020-05-02] MEDS ORDERED: NALOXONE 0.4 MG/ML 1 ML VIAL IV PRN (01:43)
[2020-05-02] MEDS ORDERED: ONDANSETRON 4 MG/2 ML VIAL IVP STA (01:51)
[2020-05-02] MEDS: PANTOPRAZOLE 40 MG/10 ML VIAL IV SCH ×2 (02:12→19:56)
[2020-05-02 09:36] LABS: Potassium 3.9 mmol/L (3.5-5.1)
[2020-05-02 09:39] LABS: HCT 43.1 % (34.0-46.0); MCH 29.7 pg (25.0-35.0); MCHC 32.5 g/dL (31.0-37.0); MCV 91.5 fL (80.0-100.0); Mean Platelet Volume 7.8; Platelet Count 395 k/uL (150-450); RBC 4.71 m/uL (3.80-5.40); RDW 13.3 % (11.5-15.5); WBC 5.1 k/uL (3.8-10.6)
[2020-05-02 09:55] LABS: Band Neutrophils % 30 %; Eosinophils # (M) 0.05 k/uL (0-0.7); Lymphocytes # (M) 1.02 k/uL (1.0-4.8); Metamyelocytes # (M) 0.15 k/uL (0); Metamyelocytes % 3 %; Monocytes # (M) 0.26 k/uL (0-1.0); Neutrophils % (M) 43 %; Nucleated Red Blood Cells 0 /100 WBC (0-0); Total Cells Counted 200; Toxic Granulation Present
[2020-05-02 10:30] LABS: Amorphous Sediment,Urine Rare /hpf; Appearance,Urine Cloudy (Clear); Bacteria,Urine Rare /hpf; Bilirubin,Urine Negative (Negative); Blood,Urine Negative (Negative); Color,Urine Yellow; Glucose,Urine (UA) Negative (Negative); Hyaline Casts,Urine 4 /lpf (0-2); Ketones,Urine Negative (Negative); Leukocyte Esterase,Urine Small (Negative); Mucus,Urine Occasional /hpf; Nitrite,Urine Negative (Negative); Protein,Urine Trace (Negative); RBC,Urine 2 /hpf (0-5); Specific Gravity,Urine 1.017 (1.001-1.035); Squamous Epithelial Cell,Urine 1 /hpf (0-4); Urobilinogen,Urine <2.0 mg/dL (<2.0); WBC,Urine 2 /hpf (0-5)
--- NOTE | 2020-05-02 10:37 | CONS ---
CONSULTATION DATE OF DICTATION: May 02, 2020 REASON FOR CONSULTATION: Coffee-ground emesis. HISTORY OF PRESENT ILLNESS: The patient is an 85-year-old pleasant white female who lives in an assisted living place. Has some dementia. Apparently was brought to the emergency room by the staff because she has been more confused and was having some nausea, vomiting, with coffee- ground emesis. Came to the emergency room and was noted to be dehydrated with acute renal failure. According to the nursing staff, since being in the hospital, she did not have any episodes of further bleeding. No bowel movements so far. No history of melena. She is very confused but awake, answering to simple questions appropriately. She reports no abdominal pain. PAST MEDICAL HISTORY: Significant for dementia, hypertension, hyperlipidemia. PAST SURGICAL HISTORY: Hysterectomy. MEDICATIONS: Medications at home include Lipitor, amlodipine, vitamin B12, Cymbalta, losartan, Toprol. ALLERGIES: VICODIN. SOCIAL HISTORY: No smoking. No alcohol use. FAMILY HISTORY: Could not be obtained. REVIEW OF SYSTEMS: CARDIOPULMONARY: No chest pain or shortness of breath. GENITOURINARY: No dysuria or hematuria. MUSCULOSKELETAL unremarkable. SKIN unremarkable. ENDOCRINE unremarkable. NEUROLOGY: Dementia. ENT/VISION: Unremarkable. CONSTITUTIONAL: No recent weight loss. No fever, chills, night sweats. PHYSICAL EXAMINATION: She appears comfortable, in no apparent distress. VITAL SIGNS: Stable. Blood pressure is 111/66, pulse rate 67, temperature 97.6. HEENT examination unremarkable. Conjunctivae pink. Sclerae anicteric. Oral cavity no lesions. NECK no JVD or lymph node enlargement. CHEST was clear to auscultation. HEART: Regular rate and rhythm. ABDOMEN was soft. It was nontender, nondistended. Bowel sounds are positive. EXTREMITIES: No pedal edema. NEURO: She is awake, oriented to name but not to place and time. LABS: From yesterday, WBC 10.6, hemoglobin 14.3, platelets normal. Basic metabolic panel showed sodium of 124, potassium 3.9, chloride 78, CO2 30, BUN 115, creatinine 3.32, troponin 0.440. Lipase is normal. Repeat CBC from today hemoglobin is 14 g/dL. IMPRESSION: 1. Nausea, vomiting, coffee-grounds emesis since yesterday. Hemodynamically stable. Hemoglobin stable at 14 g/dL. The patient had no further episodes of emesis since being in the hospital. 2. Acute kidney injury with elevated BUN and creatinine at 115 and 3.32 respectively. Baseline labs from 6 months ago showed a BUN of 22 and creatinine 1.0. Nephrology has been consulted. 3. Elevated troponin. 4. Dementia. 5. History of hypertension. RECOMMENDATIONS: 1. Start on Protonix 40 mg daily. 2. Clear liquid diet. 3. Continue IV hydration. 4. Await nephrology consultation. 5. No plans on any endoscopic intervention at this time. We will follow her closely and based on her clinical course, we will decide further. Thank you for this consultation. MMODL / IJN: [id number] /
[2020-05-02] MEDS: SODIUM CHLORIDE 0.9% 1,000 ML IV SCH ×3 (12:11→21:55)
--- NOTE | 2020-05-02 13:49 | CONS ---
CONSULTATION REASON FOR CONSULT: Renal failure. HISTORY OF PRESENT ILLNESS: Patient is an 85-year-old female who was admitted to the hospital with history of coffee-grounds emesis. The patient has not been eating much for past few days prior to admission. She also had complaints of vomiting. Her mentation was noted to be decreased as well as prior to admission. The patient does have baseline dementia. No prior history of kidney diseases according to the patient. Serum creatinine was 3.32 mg/dL. Review of previous labs shows a creatinine of 1.0 on 09/04/2019. Serum sodium was 124. The patient is currently maintained on saline at about 130 mL an hour. She is voiding and has been incontinent. PAST MEDICAL HISTORY: Underlying dementia, generalized debility, hyperlipidemia, hypertension. PAST SURGICAL HISTORY: Hysterectomy. SOCIAL HISTORY: Negative for smoking, drug abuse or alcohol abuse. Patient resides at a rehab facility. PHYSICAL EXAMINATION: Patient is comfortable, not in any acute distress. Blood pressure is 111/59, heart rate 73 per minute, patient is afebrile. Examination of the heart S1, S2. Examination of the lungs, bilateral breath sounds are heard. Abdomen is soft, nontender. Examination of lower extremities shows no evidence of edema. TIMBER POISONER exam is grossly intact. LABS: Show sodium 126, potassium 3.9, chloride 84, BUN 117, serum creatinine 3.64. Hemoglobin 14.0 g/dL. UA shows trace protein, no significant cells noted. ASSESSMENT: 1. Acute kidney injury, mostly prerenal. Continue with IV fluids. Blood pressure is on the lower side. The patient is not on any antihypertensive medications. UA is quite benign. Check a bladder scan to rule out urine retention. 2. Dementia with worsening of mentation from baseline, most likely related to volume depletion and dehydration. 3. Chronic kidney disease stage 3 with previous creatinine at 1.0 in August of 2019. 4. Hyponatremia which is hypovolemic and currently improving with normal saline. 5. Lactic acidosis. Lactic acid has improved from 2.3-1.7. PLAN: Continue with IV fluids. Check chest x-ray. Check bladder scan to rule out urine retention. Repeat sodium this evening and then again in a.m. Avoid nephrotoxic agents. Encourage increased oral intake. Check chest x-ray. Thank you for this consultation. We will continue to follow the patient with you during her hospitalization. MMODL / IJN: [id number] /
--- NOTE | 2020-05-02 17:09 | XR ---
EXAMINATION TYPE: XR abdomen 2V DATE OF EXAM: 05/02/2020 CLINICAL HISTORY: Abdominal pain rule out obstruction. TECHNIQUE: Supine and upright views of the abdomen are obtained. COMPARISON: None. FINDINGS: Upright view suboptimal as patient unable to hold breath. Gas dilated small bowel loops in the mid to lower abdomen are present in stepladder fashion. Suspect gas distended stomach. Right pel danny surgical clip. Multilevel spurring and disc space narrowing in the lumbar spine. Suboptimal evalu ation of the lung bases and upper abdomen. IMPRESSION: Suboptimal study. Overall nonspecific bowel gas pattern. Possible mid small bowel obstru ction. Progress study advised.
--- NOTE | 2020-05-02 18:45 | XR ---
EXAMINATION TYPE: XR chest 1V portable DATE OF EXAM: 05/02/2020 CLINICAL HISTORY: NG tube placement. TECHNIQUE: Single AP portable upright view of the chest is obtained. COMPARISON: Chest x-ray from earlier today FINDINGS: New nasogastric tube coiled in gas distended stomach left upper to mid abdomen. Persistent low lung volumes and central vascular congestion. Cardiac silhouette size stable and upper limits of normal. Osseous structures are demineralized. IMPRESSION: New Nasogastric tube satisfactory in position
--- NOTE | 2020-05-02 18:46 | XR ---
EXAMINATION TYPE: XR chest 1V DATE OF EXAM: 05/02/2020 CLINICAL HISTORY: Difficulty breathing and CHF. TECHNIQUE: Single AP portable upright view of the chest is obtained. COMPARISON: Chest x-ray from September 04, 2019. FINDINGS: Diminished inspiration with central vascular congestion. Cardiac silhouette size remains w ithin normal limits. Osseous structures remain demineralized. IMPRESSION: Correlate for fluid overload state as there is poor inspiration with new mild to moderate central vascular congestion.
--- NOTE | 2020-05-02 18:50 | P.HPIM ---
History of Present Illness H&P Date: 05/02/20 (Acute kidney injury, small bowel obstruction, sepsis with the hypotension.) Chief Complaint: 85 years old white female admitted through the emergency room with the coff Chief complaint: 85 years old white female with underlying dementia live assisted living [place]. Patient will by ambulance to the emergency room where she had history of coffee- ground emesis with the GI bleeding and dehydration lethargy confusion progressed with the history of dementia Alzheimer's type. She has also worsened this of level of consciousness worsening. Patient is very poor historian. With the main complaint coffee-ground emesis her pain was scaled 7/10. With the main complaint nausea and vomiting and weakness. Kaia Ortiz who is a 85 years old white female well-known to me, she has been placed to [facility] assisted [facility] and was followed by home physician group. Her symptoms and started around 5 days ago and they have been communicating with the Zosyn with no full exam. And patient progressively worsening dehydrated nausea vomiting was coffee-ground emesis and become more lethargic. The etiology at that time was not clear and they put her on Zofran. In the ER found that he had acute kidney injury with the high level of be ON and creatinine with the dehydration. Subsequently x-ray of the abdomen showed the suspicious of small bowel obstruction with the underlying nausea and vomiting with the probable Hemoccults in the gastric vomitus and the smell like faces. Patient has history of dementia Alzheimer's type. There is history of chronic kidney disease stage III was stable in the past. Past medical history dementia Alzheimer's type with no history of strokes, hyperlipidemia, hypertension currently she is hypotensive. Hysterectomy. No smoking no drinking. ALLERGY acetaminophen and hydrocodone. Family history: One son and he is officer. She is a , her . Review of system: Patient unable to communicate and the question was addressed to her son and her [id number]. 14 bullet was reviewed She had waiting follow-ups with the incontinent of urine. And skin is dry and warm, and her tongue is furrowed no moist with the severe dehydrati She had mild cough. However patient appears septic with the elevated lactic acid. She had history of recurrent 3 UTI and the urine analysis was done with low leukocyte however we will proceed with culture and sensitivity. With the dementia progress aspiration pneumonitis is highly considered we'll obtain blood culture 2 and start on Zosyn subsequently pharmacy to dose. On physical exam: Patient seen and her son as well as her [id number] at bedside. She has altered mental status with worsening of her dementia and lethargy. But she is alert with the possible effect of sepsis versus the elevated BUN. The head was normocephalic atraumatic. And pupil equal reactive, dry skin the right tongue and dry lips. With significant dehydration. No conjunctival in injection no periorbital edema. Neck was supple no JVD no thyromegaly no lymphadenopathy trachea midline. Chest she had left lower lung field dullness and rhonchi's suspicious of pneumonitis behind the heart or the cardiac shadow probably associated with sepsis and future chest x-ray after hydration will see if these appear or not. Heart: She had history of hypertension hypertensive heart disease. And the po ssibility of diastolic dysfunction was high we will be obtaining echocardiogram to assess her left ventricular function and also with the currently high-volume hydration. The heart is regular sinus and EKG was done and no . Rub or gallop from the uremia. Extremities no calf tenderness no evidence of DVT. Pulses is intact. Her back she had history of spinal stenosis with advanced degenerative arthritis and needs support with walker for walking disability. Psychiatric she had general anxiety disorder. Abdomen: Tender generalized, with the percussion tympanitic like of the ROM, mid abdomen tenderness. Nausea and vomiting and the NG tube was placed at the time of the exam and we'll obtain Hemoccults. Vital sign on admission indicating blood pressure 100/81 with the hypotension and her oxygen was 90 which is low on room air and her pulse rate 65 and the respiratory rate was 14. Assessment #1 GI bleeding #2 nausea and vomiting discussed possible biopsy small bowel obstruction will consult surgeon. #3 acute kidney injury seen by Dr. Lucas nephrology with the elevated BUN and creatinine with the on the top of the chronic kidney disease stage III #4 lactic acidosis. #5 retrocardiac pneumonitis could be aspiration and we will be obtaining blood culture 2/from different sites. And subsequently start on antibiotic Zosyn pharmacy to dose. #6 severe dehydration probably hemoglobin is normal due to hemoconcentration. #7 dementia Alzheimer's type. Plan: Will obtain surgical consult for acute small bowel obstruction. Dr. Tran monitoring the patient for gastroenterology with the possible EGD if needed #3 Dr. Lucas nephrology monitoring the patient with the hydration with the high- volume fluid. #4 echocardiogram to disease with Doppler for evaluation of the left ventricular hypertrophy with the hypertensive heart disease and history of diastolic dysfunction. 5 blood culture 2 from different sites and subsequent starting Zosyn IV piggyback according to pharmacy consultation. Also will get urine culture. Discussed with the patient family in detail Obtaining lab in the morning as well and we'll order pro-calcitonin and with the mild elevation of troponin patient is monitored however she had no symptoms of chest pain. Past Medical History Past Medical History: Dementia, Hyperlipidemia, Hypertension History of Any Multi-Drug Resistant Organisms: None Reported Past Surgical History: Hysterectomy Past Anesthesia/Blood Transfusion Reactions: No Reported Reaction Past Psychological History: No Psychological Hx Reported Smoking Status: Never smoker Past Alcohol Use History: Occasional Additional Past Alcohol Use History / Comment(s): wine with dinner Past Drug Use History: None Reported Medications and Allergies Home Medications Medication Instructions Recorded Confirmed Type Atorvastatin [Lipitor] 20 mg PO HS@199905/02/20 05/02/20 History Cyanocobalamin (Vitamin B-12) 500 mcg PO DAILY@79905/02/20 05/02/20 History [Vitamin B-12] DULoxetine HCL [Cymbalta] 30 mg PO BID@05/02/20 05/02/20 History Ergocalciferol [Vitamin D2 50,000 units PO MO@79905/02/20 05/02/20 History (DRISDOL)] Losartan Potassium 50 mg PO DAILY@79905/02/20 05/02/20 History Metoprolol Succinate (ER) [Toprol 25 mg PO DAILY@79905/02/20 05/02/20 History XL] amLODIPine BESYLATE 5 mg PO HS@199905/02/20 05/02/20 History Allergies Allergy/AdvReac Type Severity Reaction Status Date / Time acetaminophen [From Vicodin] Allergy Unknown Verified 05/02/20 08:57 hydrocodone [From Vicodin] Allergy Unknown Verified 05/02/20 08:57 Physical Exam Vitals: Vital Signs Temp Pulse Pulse Resp BP BP Pulse Ox 05/02/20 15:34 97.4 F L 19 115/55 92 L 05/02/20 12:10 97.7 F 73 18 111/59 96 05/02/20 08:10 97.6 F 67 18 111/66 100 05/02/20 03:12 63 16 05/02/20 03:00 97.7 F 63 16 114/59 92 L 05/02/20 01:50 98.0 F 65 16 129/84 05/02/20 00:08 65 18 104/66 90 L 05/02/20 00:02 97.6 F 65 14 100/81 90 L Intake and Output 05/02/20 05/02/20 05/02/20 06:59 14:59 22:59 Intake Total 1040 90 910 Output Total 800 Balance 1040 -710 910 Intake: Intake, IV Titration 1040 910 Amount Sodium Chloride 0.9% 1, 910 000 ml @ 130 mls/hr IV . Q7H42M GUILLERMO Rx#:[id number] Sodium Chloride 0.9% 1, 1040 000 ml @ 130 mls/hr IV . Q7H42M STA Rx#:[id number] Oral 90 Output: Urine 800 Straight 400 Other: Voiding Method Diaper Incontinent # Voids 1 1 # Bowel Movements 0 Weight 65 kg Results CBC & Chem 7: 05/02/20 08:30 05/02/20 08:30 Labs: Abnormal Lab Results - Last 24 Hours (Table) 05/02/20 05/02/20 05/02/20 Range/Units 00:10 00:10 00:10 Metamyelocytes # (Man) (0) k/uL Sodium 124 L (137-145) mmol/L Chloride 78 L (98-107) mmol/L BUN 115 H* (7-17) mg/dL Creatinine 3.32 H (0.52-1.04) mg/dL Glucose 177 H (74-99) mg/dL Plasma Lactic Acid [place] 2.3 H* (0.7-2.0) mmol/L Calcium (8.4-10.2) mg/dL Magnesium 2.4 H (1.6-2.3) mg/dL AST 38 H (14-36) U/L Troponin I 0.440 H* (0.000-0.034) ng/mL Total Protein 5.6 L (6.3-8.2) g/dL Albumin 3.4 L (3.5-5.0) g/dL Urine Appearance (Clear) Urine Protein (Negative) Ur Leukocyte Esterase (Negative) Amorphous Sediment (None) /hpf Urine Bacteria (None) /hpf Hyaline Casts (0-2) /lpf Urine Mucus (None) /hpf 05/02/20 05/02/20 05/02/20 Range/Units 08:30 08:30 10:15 Metamyelocytes # (Man) 0.15 H (0) k/uL Sodium 126 L (137-145) mmol/L Chloride 84 L (98-107) mmol/L BUN 117 H* (7-17) mg/dL Creatinine 3.64 H (0.52-1.04) mg/dL Glucose 116 H (74-99) mg/dL Plasma Lactic Acid [place] (0.7-2.0) mmol/L Calcium 8.0 L (8.4-10.2) mg/dL Magnesium (1.6-2.3) mg/dL AST (14-36) U/L Troponin I (0.000-0.034) ng/mL Total Protein (6.3-8.2) g/dL Albumin (3.5-5.0) g/dL Urine Appearance Cloudy H (Clear) Urine Protein Trace H (Negative) Ur Leukocyte Esterase Small H (Negative) Amorphous Sediment Rare H (None) /hpf Urine Bacteria Rare H (None) /hpf Hyaline Casts 4 H (0-2) /lpf Urine Mucus Occasional H (None) /hpf Thrombosis Risk Factor Assmnt - Choose All That Apply Any of the Below Risk Factors Present?: Yes Other Risk Factors: Yes Each Risk Factor Represents 3 Points: Age 75 years or older Other congenital or acquired thrombophilia - If yes, enter type in comment: Yes Thrombosis Risk Factor Assessment Total Risk Factor Score: 3 Thrombosis Risk Factor Assessment Level: Moderate Risk
[2020-05-02] MEDS: PIPERACILLIN-TAZOBACTAM 3.375 GM in SODIUM CHLORIDE 0.9% 100 ML IVPB SCH (19:56)
[2020-05-03 07:39] LABS: HCT 37.4 % (34.0-46.0); HGB 12.2 gm/dL (11.4-16.0); MCH 30.4 pg (25.0-35.0); MCHC 32.5 g/dL (31.0-37.0); MCV 93.6 fL (80.0-100.0); Mean Platelet Volume 7.9; Platelet Count 331 k/uL (150-450); RDW 13.3 % (11.5-15.5); WBC 6.8 k/uL (3.8-10.6)
[2020-05-03 07:46] LABS: Albumin 2.5 g/dL (3.5-5.0); Calcium 6.9 mg/dL (8.4-10.2); Magnesium 2.3 mg/dL (1.6-2.3); Phosphorus 5.4 mg/dL (2.5-4.5); Potassium 3.3 mmol/L (3.5-5.1); Total Bilirubin 0.8 mg/dL (0.2-1.3); Total Protein 4.7 g/dL (6.3-8.2)
[2020-05-03] MEDS: PANTOPRAZOLE 40 MG/10 ML VIAL IV SCH ×2 (07:47→20:12)
[2020-05-03] MEDS: PIPERACILLIN-TAZOBACTAM 3.375 GM in SODIUM CHLORIDE 0.9% 100 ML IVPB SCH ×2 (07:47→20:12)
[2020-05-03] MEDS: SODIUM CHLORIDE 0.9% 1,000 ML IV SCH ×2 (07:48→13:38)
[2020-05-03 08:38] LABS: Band Neutrophils % 9 %; Lymphocytes # (M) 0.54 k/uL (1.0-4.8); Metamyelocytes # (M) 0.07 k/uL (0); Metamyelocytes % 1 %; Neutrophils % (M) 79 %; Nucleated Red Blood Cells 0 /100 WBC (0-0); Total Cells Counted 100
--- NOTE | 2020-05-03 10:23 | PN ---
PROGRESS NOTE Patient is seen for followup for acute kidney injury. The patient is currently maintained on IV fluids. Her renal function has improved. Serum sodium has improved as well. PHYSICAL EXAMINATION: On examination today, patient is comfortable, not in any acute distress. Blood pressure was 119/55, heart rate 64 per minute, she is afebrile. The patient has an NG tube in place with significant drainage from the NG tube. Examination of the heart S1, S2. Examination of the lungs, bilateral breath sounds are heard. Abdomen is soft, nontender. Examination of lower extremities shows no evidence of edema. MIXING PAN TENDER exam grossly intact. LAB: Show sodium 130, potassium 3.3, chloride 96 BUN 112, serum creatinine 2.7, hemoglobin 12.2 g/dL. ASSESSMENT: 1. Acute kidney injury, prerenal, currently maintained on IV fluids with improvement in renal function. A postvoid residual was checked and it was slightly on the higher side. 2. Gastrointestinal bleed currently with NG tube in place for small bowel obstruction. 3. Lactic acidosis. 4. Possible pneumonia maintained on antibiotics. 5. Chronic kidney disease stage 3, previous creatinine 1.0, August of 2019. 6. Hyponatremia, appears to be hypovolemic, currently improved. PLAN: Replace potassium. Continue with the IV fluids. Continue to monitor postvoid residual and repeat labs in a.m. MMODL / IJN: [id number] /
--- NOTE | 2020-05-03 11:56 | P.GSCN ---
History of Present Illness Consult date: 05/03/20 History of present illness: Surgical consultation is requested for bowel obstruction. Patient has baseline dementia, hence history obtained per records and chart. At present, patient denies any abdominal pain. No current bowel movements since hospitalization. Patient presented to the hospital with coffee ground emesis. NGT bilious without blood ABDOMEN: Soft, nontender, nondistended STUDIES: AXR question small bowel obstruction ASSESSMENT: 1. SBO PLAN: 1. Continue NGT 2. Follow-up studies with AXR including CT scan abdomen/pelvis without contrast. Past Medical History Past Medical History: Dementia, Hyperlipidemia, Hypertension History of Any Multi-Drug Resistant Organisms: None Reported Past Surgical History: Hysterectomy Past Anesthesia/Blood Transfusion Reactions: No Reported Reaction Past Psychological History: No Psychological Hx Reported Smoking Status: Never smoker Past Alcohol Use History: Occasional Additional Past Alcohol Use History / Comment(s): wine with dinner Past Drug Use History: None Reported Medications and Allergies Home Medications Medication Instructions Recorded Confirmed Type Atorvastatin [Lipitor] 20 mg PO HS@199905/02/20 05/02/20 History Cyanocobalamin (Vitamin B-12) 500 mcg PO DAILY@79905/02/20 05/02/20 History [Vitamin B-12] DULoxetine HCL [Cymbalta] 30 mg PO BID@05/02/20 05/02/20 History Ergocalciferol [Vitamin D2 50,000 units PO MO@79905/02/20 05/02/20 History (DRISDOL)] Losartan Potassium 50 mg PO DAILY@79905/02/20 05/02/20 History Metoprolol Succinate (ER) [Toprol 25 mg PO DAILY@79905/02/20 05/02/20 History XL] amLODIPine BESYLATE 5 mg PO HS@199905/02/20 05/02/20 History Allergies Allergy/AdvReac Type Severity Reaction Status Date / Time acetaminophen [From Vicodin] Allergy Unknown Verified 05/02/20 08:57 hydrocodone [From Vicodin] Allergy Unknown Verified 05/02/20 08:57 Surgical - Exam Vital Signs Temp Pulse Resp BP Pulse Ox 97.6 F 65 14 100/81 90 L 05/02/20 00:02 05/02/20 00:02 05/02/20 00:02 05/02/20 00:02 05/02/20 00:02 Results - Labs 05/03/20 06:34 05/03/20 06:34 Abnormal Lab Results - Last 24 Hours (Table) 05/02/20 05/03/20 05/03/20 Range/Units 08:30 06:34 06:34 Lymphocytes # (Manual) 0.54 L (1.0-4.8) k/uL Metamyelocytes # (Man) 0.07 H (0) k/uL Sodium 130 L (137-145) mmol/L Potassium 3.3 L (3.5-5.1) mmol/L Chloride 96 L (98-107) mmol/L BUN 112 H* (7-17) mg/dL Creatinine 2.77 H (0.52-1.04) mg/dL Calcium 6.9 L (8.4-10.2) mg/dL Phosphorus 5.4 H (2.5-4.5) mg/dL AST 49 H (14-36) U/L Total Protein 4.7 L (6.3-8.2) g/dL Albumin 2.5 L (3.5-5.0) g/dL Procalcitonin 29.60 H (0.02-0.09) ng/mL Microbiology - Last 24 Hours (Table) 05/02/20 10:15 Urine Culture - Preliminary Urine,Catheterized Diabetes panel 05/03/20 Range/Units 06:34 Sodium 130 L (137-145) mmol/L Potassium 3.3 L (3.5-5.1) mmol/L Chloride 96 L (98-107) mmol/L Carbon Dioxide 22 (22-30) mmol/L BUN 112 H* (7-17) mg/dL Creatinine 2.77 H (0.52-1.04) mg/dL Glucose 81 (74-99) mg/dL Calcium 6.9 L (8.4-10.2) mg/dL AST 49 H (14-36) U/L ALT 19 (4-34) U/L Alkaline Phosphatase 45 (38-126) U/L Total Protein 4.7 L (6.3-8.2) g/dL Albumin 2.5 L (3.5-5.0) g/dL Calcium panel 05/03/20 Range/Units 06:34 Calcium 6.9 L (8.4-10.2) mg/dL Phosphorus 5.4 H (2.5-4.5) mg/dL Albumin 2.5 L (3.5-5.0) g/dL Pituitary panel 05/03/20 Range/Units 06:34 Sodium 130 L (137-145) mmol/L Potassium 3.3 L (3.5-5.1) mmol/L Chloride 96 L (98-107) mmol/L Carbon Dioxide 22 (22-30) mmol/L BUN 112 H* (7-17) mg/dL Creatinine 2.77 H (0.52-1.04) mg/dL Glucose 81 (74-99) mg/dL Calcium 6.9 L (8.4-10.2) mg/dL Adrenal panel 05/03/20 Range/Units 06:34 Sodium 130 L (137-145) mmol/L Potassium 3.3 L (3.5-5.1) mmol/L Chloride 96 L (98-107) mmol/L Carbon Dioxide 22 (22-30) mmol/L BUN 112 H* (7-17) mg/dL Creatinine 2.77 H (0.52-1.04) mg/dL Glucose 81 (74-99) mg/dL Calcium 6.9 L (8.4-10.2) mg/dL Total Bilirubin 0.8 (0.2-1.3) mg/dL AST 49 H (14-36) U/L ALT 19 (4-34) U/L Alkaline Phosphatase 45 (38-126) U/L Total Protein 4.7 L (6.3-8.2) g/dL Albumin 2.5 L (3.5-5.0) g/dL
--- NOTE | 2020-05-03 12:10 | PN ---
PROGRESS NOTE DATE OF SERVICE: May 03, 2020 The patient is an 85-year-old pleasant white female came to the emergency room with nausea vomiting and abdominal distention. She had an episode of coffee-ground emesis at home. Yesterday afternoon, she had a large amount of emesis almost thick foul smelling and subsequently she had some abdominal x-rays done that showed suboptimal study, but possibility of bowel obstruction could not be excluded. She underwent an NG tube placement and there was approximately 2.5 L of thick brownish material that was aspirated. This morning she had another 400 mL. She is feeling much better. She is more alert and oriented today. She reports no abdominal pain. No bowel movements since yesterday. Overall she is feeling better. PHYSICAL EXAMINATION: She appears comfortable. No apparent distress. VITAL SIGNS: Stable. Blood pressure is 119/55, pulse is 64, temperature 98.2. HEENT examination unremarkable. Conjunctivae pink. Sclerae anicteric. Oral cavity no lesions. NG tube in place. CHEST: Clear to auscultation. ABDOMEN: Soft, it was nontender. Bowel sounds were positive. EXTREMITIES: No pedal edema. NEURO: She is alert and oriented x3. No focal deficits. LABS: Labs done today WBC was 6.8, hemoglobin 12.2, platelets 331. BUN is 112, creatinine 2.77, sodium 130, potassium 3.3, chloride 96. CO2 22. Rest of the labs are within normal limits. Gastroccult was positive. IMPRESSION: 1. Nausea, vomiting, coffee-ground emesis, possibly related to partial small bowel obstruction. Abdominal x-rays yesterday showed some dilated loops of small bowel. NG tube is placed and there was total of 3 L in the last 24 hours that was aspirated. Repeat abdominal x-rays from today are pending. Surgery has been consulted, have not evaluated the patient yet. 2. Altered mental status with underlying dementia, which is gradually improving. 3. Acute renal failure secondary to prerenal azotemia with significant elevation of BUN and creatinine. Dr. Lucas following the patient closely. She is getting IV hydration. Her BUN and creatinine are gradually improving. RECOMMENDATIONS: 1. Continue with NG tube suction. 2. Await abdominal x-ray from today. 3. Await surgical consultation. 4. Continue IV hydration. 5. Keep her n.p.o. for now. 6. We will follow with you closely. Thank you for this consultation. MMODL / IJN: [id number] /
--- NOTE | 2020-05-03 13:11 | P.PN ---
Subjective Progress Note Date: 05/03/20 ( Acute kidney injury, small bowel obstruction, sepsis, elevated pro-calcitonin.) Principal diagnosis: Diagnoses: #1 acute kidney injury. #2 small bowel obstruction #3 change of m ental status with the possible associated with sepsis and elevated pro- calcitonin. #4 gastric suction more than 3000 pinkish brownish discoloration was probably positive for Hemoccult. #5 GI bleeding with drop of hemoglobin 2 g could be associated. #6 severe dehydration. #7 probable as aspiration pneumonitis retrocardiac. Dictation on progress note date of service 05/03/2020. Patient seen and evaluated she currently sleeping had NG tube placed yesterday with the return 3 L of brown acid Hemotene discoloration. Seen by Dr. Vaughn for Dr. Witt and she order computed tomography scan of the abdomen without contrast. With the underlying acute kidney injury with the high creatinine. White count 6.8, hemoglobin on admission was 14 and today 12.2 with a drop almost 2 g. She had on admission hyponatremia with hydration mild improvement on the sodium which is now 1:30, potassium 3.3 because of advanced kidney function abnormalities we'll wait for nephrology for supplementation if they require The be ON 1 was 117 and today 112. Creatinine was 3.64 and today 2.77 mild improvement with hydration. Estimated glomerular filtration rate was 11 and now improved to 15, blood sugar 81., Magnesium 2.3 normal with the patient nothing by mouth her protein dropped to 4.7 and albumin 2.5 and Trocal seton in 29.6. Lactic acid was 2.3 and recovered to 1.7. On the physical exam: Patient is resting NG tube in place and a Hernandez catheter was in place started in the evening for the monitoring intake and output. Temperature 98.2 F axillary, her heart rate 64 bpm, respiratory rate 18/m, blood pressure 110/56 with a mean 74 oxygen is saturation 96 on room air. HEENT was negative Neck was supple no JVD. Chest created in the upper lung field and decreased air entry on the lower lung field. Heart regular sinus rhythm. Abdomen distended protuberant and no flatness no bowel movement was urine incontinence Extremities no edema and positive pulses. Neuro psychiatry lethargy with the underlying dementia. Assessment: And plan #1 minimal improvement in regard of hydration. #2 we'll obtain chest x-ray Tomorrow. As well as pro-BMP. #3 will see the CAT scan results for the small bowel obstruction. #4 nephrology following the patient for the acute kidney injury. #5 high pro-calcitonin and I still expected sepsis with liquid be retrocardiac or intra-abdominal. #6 we'll continue the current treatment. Obtain the lab tomorrow Objective - Vital Signs Vital signs: Vital Signs Temp 98.2 F 05/03/20 08:00 Pulse 61 05/03/20 12:00 Resp 18 05/03/20 12:00 BP 110/56 05/03/20 12:00 Pulse Ox 96 05/03/20 12:00 Intake & Output 05/02/20 05/03/20 05/03/20 18:59 06:59 18:59 Intake Total 1000 1140 230 Output Total 800 3000 300 Balance 200 -1860 -70 Weight 65.5 kg Intake: Intake, IV Titration 910 1140 230 Amount Piperacillin-Tazobactam 3 100 100 .375 gm In Sodium Chloride 0.9% 100 ml @ 25 mls/hr IVPB Q12HR GUILLERMO Rx #:[id number] Sodium Chloride 0.9% 1, 910 1040 000 ml @ 130 mls/hr IV . Q7H42M GUILLERMO Rx#:[id number] Sodium Chloride 0.9% 1, 130 000 ml @ 130 mls/hr IV . Q7H42M STA Rx#:[id number] Oral 90 0 0 Output: Gastric Drainage 2300 Urine 800 700 300 Straight 400 350 Other: Voiding Method Incontinent Indwelling Catheter Indwelling Catheter # Voids 0 1 # Bowel Movements 0 # Emeses 1 - Labs CBC & Chem 7: 05/03/20 06:34 05/03/20 06:34 Labs: Abnormal Lab Results - Last 24 Hours (Table) 05/02/20 05/03/20 05/03/20 Range/Units 08:30 06:34 06:34 Lymphocytes # (Manual) 0.54 L (1.0-4.8) k/uL Metamyelocytes # (Man) 0.07 H (0) k/uL Sodium 130 L (137-145) mmol/L Potassium 3.3 L (3.5-5.1) mmol/L Chloride 96 L (98-107) mmol/L BUN 112 H* (7-17) mg/dL Creatinine 2.77 H (0.52-1.04) mg/dL Calcium 6.9 L (8.4-10.2) mg/dL Phosphorus 5.4 H (2.5-4.5) mg/dL AST 49 H (14-36) U/L Total Protein 4.7 L (6.3-8.2) g/dL Albumin 2.5 L (3.5-5.0) g/dL Procalcitonin 29.60 H (0.02-0.09) ng/mL Microbiology - Last 24 Hours (Table) 05/02/20 10:15 Urine Culture - Preliminary Urine,Catheterized
--- NOTE | 2020-05-03 13:43 | XR ---
Abdomen HISTORY: Bowel obstruction Frontal view of the abdomen on 2 images There are gas distended loops of bowel present. No evident pneumoperitoneum. NG tube is coiled within the stomach. Vascular calcifications are present within the pelvis. IMPRESSION: Findings consistent with patient's history of bowel obstruction.
--- NOTE | 2020-05-03 14:02 | CT ---
EXAMINATION TYPE: CT abdomen pelvis wo con DATE OF EXAM: 05/03/2020 COMPARISON: Abdomen same date HISTORY: Patient poor historian. CT DLP: 556.7 mGycm Automated exposure control for dose reduction was used. TECHNIQUE: Helical acquisition of images from the lung bases through the pelvis. FINDINGS: Lack of intravenous contrast could compromise sensitivity. NG tube shows the distal tip wit hin the stomach. LUNG BASES: Bibasilar atelectatic changes versus pneumonia present, there are associated effusions AORTA: No significant abnormality is appreciated. LIVER/GB: There are dependent high dense foci consistent with gallstones, the liver is unremarkable. PANCREAS: No significant abnormality is seen. SPLEEN: No significant abnormality is seen. ADRENALS: No significant abnormality is seen. KIDNEYS: No significant abnormality is seen. REPRODUCTIVE ORGANS: Not seen. URINARY BLADDER: Hernandez catheter [id number]. BOWEL: Dilated loops of small bowel with fluid are noted. Distal small bowel is decompressed. Mild i nflammatory changes noted within the mesenteric fat. FREE AIR: No Free Air is visible. ASCITES: None visible. PELVIC ADENOPATHY: None visualized. RETROPERITONEAL ADENOPATHY: No Retroperitoneal Adenopathy visible. OSSEOUS STRUCTURES: Degenerative disc changes are present, there is extensive facet arthropathy as w ell as a spinal curvature IMPRESSION: FINDINGS CONSISTENT WITH SMALL BOWEL OBSTRUCTION. Cholelithiasis, noncontrast exam, bilateral pleural effusions.
[2020-05-03] MEDS: POTASSIUM CHLORIDE 10 MEQ in WATER FOR INJECTION 1 100ML.BAG IVPB SCH ×2 (17:15→18:25)
[2020-05-04] MEDS: SODIUM CHLORIDE 0.9% 1,000 ML IV SCH ×2 (05:19→18:17)
--- NOTE | 2020-05-04 06:45 | XR ---
EXAMINATION TYPE: XR chest 1V portable DATE OF EXAM: 05/04/2020 COMPARISON: 05/02/2020 HISTORY: Check tube placement TECHNIQUE: Single view FINDINGS: There is nasogastric tube. The tube appears to be folded on itself twice and the tip is in the lateral aspect of the stomach. The upper abdomen appears to show some dilated loops of small carrie l. Stomach is decreased in size compared to last exam. There is some infiltrate and atelectasis left lower lobe. There is no gross heart failure. IMPRESSION: Decrease in the gastric distention compared to last exam. Dilated small bowel suggestive of mechanical bowel obstruction. Infiltrate and atelectasis left lower lobe unchanged.
[2020-05-04 07:52] LABS: Basophils % (A) 0 %; Eosinophils % (A) 1 %; HCT 39.3 % (34.0-46.0); HGB 12.1 gm/dL (11.4-16.0); Lymphocytes # (A) 0.5 k/uL (1.0-4.8); Lymphocytes % (A) 9 %; MCH 29.2 pg (25.0-35.0); MCHC 30.7 g/dL (31.0-37.0); MCV 94.9 fL (80.0-100.0); Mean Platelet Volume 7.8; Monocytes # (A) 0.4 k/uL (0-1.0); Monocytes % (A) 7 %; Neutrophils # (A) 4.7 k/uL (1.3-7.7); Neutrophils % (A) 82 %; Platelet Count 378 k/uL (150-450); RBC 4.14 m/uL (3.80-5.40); RDW 13.2 % (11.5-15.5); WBC 5.7 k/uL (3.8-10.6)
[2020-05-04 08:03] LABS: Calcium 7.6 mg/dL (8.4-10.2); Potassium 3.1 mmol/L (3.5-5.1)
[2020-05-04] MEDS: PIPERACILLIN-TAZOBACTAM 3.375 GM in SODIUM CHLORIDE 0.9% 100 ML IVPB SCH (09:18)
[2020-05-04] MEDS: PANTOPRAZOLE 40 MG/10 ML VIAL IV SCH ×2 (09:18→22:04)
--- NOTE | 2020-05-04 09:58 | P.PN ---
Subjective Progress Note Date: 05/04/20 Principal diagnosis: Small bowel obstruction 85-year-old female admitted with dehydration and renal failure. Patient is a poor historian. Denies abdominal pain nausea or vomiting. Nasogastric tube was placed over the weekend with high volume. CAT scan performed yesterday shows evidence of proximal small bowel dilation and transition point in the pelvis. Patient has no pain. States she is passing flatus. Patient denies any surgical history however has a lower midline incision and upon questioning admits she may have had a hysterectomy. Objective - Vital Signs Vital signs: Vital Signs Temp 98.1 F 05/04/20 05:12 Pulse 64 05/04/20 05:12 Resp 16 05/04/20 05:12 BP 122/67 05/04/20 05:12 Pulse Ox 94 L 05/04/20 05:12 Intake & Output 05/03/20 05/04/20 05/04/20 18:59 06:59 18:59 Intake Total 230 Output Total 1200 1920 Balance -970 -1920 Weight 64.5 kg Intake: Intake, IV Titration 230 Amount Piperacillin-Tazobactam 3 100 .375 gm In Sodium Chloride 0.9% 100 ml @ 25 mls/hr IVPB Q12HR [facility] Rx #:[id number] Sodium Chloride 0.9% 1, 130 000 ml @ 130 mls/hr IV . Q7H42M [facility] Rx#:[id number] Oral 0 Output: Gastric Drainage 600 1600 Urine 600 320 Other: Voiding Method Indwelling Catheter Indwelling Catheter - Exam Abdomen: Soft, nontender, nondistended - Labs CBC & Chem 7: 05/04/20 06:55 05/04/20 06:55 Labs: Abnormal Lab Results - Last 24 Hours (Table) 05/03/20 05/04/20 05/04/20 Range/Units 13:49 06:55 06:55 MCHC 30.7 L (31.0-37.0) g/dL Lymphocytes # 0.5 L (1.0-4.8) k/uL Potassium 3.1 L (3.5-5.1) mmol/L Carbon Dioxide 16 L (22-30) mmol/L BUN 72 H (7-17) mg/dL Creatinine 1.88 H (0.52-1.04) mg/dL Glucose 55 L (74-99) mg/dL Calcium 7.6 L (8.4-10.2) mg/dL Troponin I 0.076 H* (0.000-0.034) ng/mL Microbiology - Last 24 Hours (Table) 05/02/20 18:55 Blood Culture - Preliminary Blood No Growth after 24 hours 05/02/20 19:05 Blood Culture - Preliminary Blood No Growth after 24 hours 05/02/20 10:15 Urine Culture - Preliminary Urine,Catheterized Assessment and Plan (1) Small bowel obstruction Narrative/Plan: 85-year-old female with CAT scan suggesting small bowel obstruction with transition point in the lower midline. Likely on the basis of adhesions. We'll continue to try to treat conservatively. Keep nasogastric tube in place for now. Repeat abdominal x-rays tomorrow. We'll follow closely with you. Current Visit: Yes Status: Acute Code(s): K56.609 - UNSP INTESTNL OBST, UNSP TO PARTIAL VERSUS COMPLETE OBST SNOMED Code(s): 728150921
--- NOTE | 2020-05-04 11:28 | P.CRDCN ---
History of Present Illness Consult date: 05/04/20 Chief complaint: Abdominal discomfort History of present illness: This is a very pleasant 85-year-old female patient who lives independently with underlying dementia the patient lost her recently presented to the hospital complaining of nausea and vomiting and mild abdominal discomfort. Subsequently the patient was diagnosed with what it seems to be small bowel obstruction. She was seen by the general surgery service who recommended a conservative approach and placing an NG tube. The patient was seen yesterday by the general surgery service. Also the patient was found to be slightly dehydrated and she was started on IV fluid. We consulted to see the patient for abnormal troponin. The troponin is very minimally elevated and seems to be flat across support. The patient does not recall having any symptoms of chest pain or chest discomfort nor shortness of breath no dizziness or lightheadedness. No sweating. No loss of consciousness or syncope. Overall she is somewhat poor historian. No underlying history of coronary artery disease and the patient stated that she never had any stents in her heart before. The EKG showed sinus rhythm with diffuse nonspecific ST and T wave abnormalities. Currently the patient is chest pain-free. Past Medical History Past Medical History: Dementia, Hyperlipidemia, Hypertension History of Any Multi-Drug Resistant Organisms: None Reported Past Surgical History: Hysterectomy Past Anesthesia/Blood Transfusion Reactions: No Reported Reaction Past Psychological History: No Psychological Hx Reported Smoking Status: Never smoker Past Alcohol Use History: Occasional Additional Past Alcohol Use History / Comment(s): wine with dinner Past Drug Use History: None Reported Medications and Allergies Home Medications Medication Instructions Recorded Confirmed Type Atorvastatin [Lipitor] 20 mg PO HS@199905/02/20 05/02/20 History Cyanocobalamin (Vitamin B-12) 500 mcg PO DAILY@79905/02/20 05/02/20 History [Vitamin B-12] DULoxetine HCL [Cymbalta] 30 mg PO BID@05/02/20 05/02/20 History Ergocalciferol [Vitamin D2 50,000 units PO MO@79905/02/20 05/02/20 History (DRISDOL)] Losartan Potassium 50 mg PO DAILY@79905/02/20 05/02/20 History Metoprolol Succinate (ER) [Toprol 25 mg PO DAILY@79905/02/20 05/02/20 History XL] amLODIPine BESYLATE 5 mg PO HS@199905/02/20 05/02/20 History Allergies Allergy/AdvReac Type Severity Reaction Status Date / Time acetaminophen [From Vicodin] Allergy Unknown Verified 05/02/20 08:57 hydrocodone [From Vicodin] Allergy Unknown Verified 05/02/20 08:57 Physical Exam Vitals: Vital Signs Temp Pulse Resp BP Pulse Ox 05/04/20 08:15 98.1 F 62 16 140/63 97 05/04/20 05:12 98.1 F 64 16 122/67 94 L 05/03/20 23:50 97.9 F 65 15 111/54 94 L 05/03/20 20:00 98.1 F 64 16 125/58 98 05/03/20 16:00 98.2 F 71 18 120/57 92 L 05/03/20 12:00 61 18 110/56 96 Intake and Output 05/03/20 05/04/20 05/04/20 22:59 06:59 14:59 Output Total 900 1920 Balance -900 -1920 Output: Gastric Drainage 600 1600 Urine 300 320 Other: Voiding Method Indwelling Catheter Indwelling Catheter Indwelling Catheter Weight 64.5 kg - Constitutional General appearance: no acute distress - Respiratory Respiratory: bilateral: diminished - Cardiovascular Rhythm: regular Heart sounds: normal: S1, S2 Abnormal Heart Sounds: systolic murmur Results 05/04/20 06:55 05/04/20 06:55 Cardiac Enzymes 05/03/20 Range/Units 13:49 Troponin I 0.076 H* (0.000-0.034) ng/mL CBC 05/04/20 Range/Units 06:55 WBC 5.7 (3.8-10.6) k/uL RBC 4.14 (3.80-5.40) m/uL Hgb 12.1 (11.4-16.0) gm/dL Hct 39.3 (34.0-46.0) % Plt Count 378 (150-450) k/uL Comprehensive Metabolic Panel 05/04/20 Range/Units 06:55 Sodium 138 (137-145) mmol/L Potassium 3.1 L (3.5-5.1) mmol/L Chloride 107 (98-107) mmol/L Carbon Dioxide 16 L (22-30) mmol/L BUN 72 H (7-17) mg/dL Creatinine 1.88 H (0.52-1.04) mg/dL Glucose 55 L (74-99) mg/dL Calcium 7.6 L (8.4-10.2) mg/dL Current Medications Generic Name Dose Route Start Last Admin Trade Name Freq PRN Reason Stop Dose Admin Sodium Chloride 1,000 mls @ 100 mls/hr 05/02/20 10:15 05/04/20 05:19 Saline 0.9% IV Not Given .Q10H [facility] Piperacillin Sod/Tazobactam 100 mls @ 25 mls/hr 05/02/20 21:00 05/04/20 09:18 Sod 3.375 gm/ Sodium Chloride IVPB 05/04/20 13:00 25 mls/hr Q12HR [facility] Administration Potassium Chloride 10 meq/ IV 100 mls @ 100 mls/hr 05/04/20 10:15 Solution IVPB 05/04/20 12:14 Q1H [facility] Protocol Piperacillin Sod/Tazobactam 100 mls @ 25 mls/hr 05/04/20 16:00 Sod 3.375 gm/ Sodium Chloride IVPB Q8HR [facility] Naloxone HCl 0.2 mg 05/02/20 01:43 Naloxone 0.4 Mg/Ml 1 Ml Vial IV Q2M PRN Opioid Reversal Ondansetron HCl 4 mg 05/02/20 01:51 Ondansetron 4 Mg/2 Ml Vial IVP Q6HR PRN Nausea And Vomiting Pantoprazole Sodium 40 mg 05/02/20 09:00 05/04/20 09:18 Pantoprazole 40 Mg/10 Ml Vial IV 40 mg BID [facility] Administration Intake and Output 05/03/20 05/04/20 05/04/20 22:59 06:59 14:59 Output Total 900 1920 Balance -900 -1920 Output: Gastric Drainage 600 1600 Urine 300 320 Other: Voiding Method Indwelling Catheter Indwelling Catheter Indwelling Catheter Weight 64.5 kg 05/04/20 06:55 05/04/20 06:55 Assessment and Plan Assessment: Assessment #1 small bowel obstruction #2 underlying dementia #3 mildly abnormal troponin Plan #1 conservative medical approach at this point in the absence of chest pain and ischemic ST and T wave abnormalities #2 the abnormal troponin is likely secondary to renal failure. Please note that the patient creatinine was 2.77 at today's 1.88 #3 start the patient on aspirin as well as beta swetha once she is not nothing by mouth in the morning #4 follow-up on the echocardiogram which was ordered already #5 follow-up with the patient
[2020-05-04] MEDS ORDERED: SODIUM BICARB 8.4% 50 ML SYR (1 MEQ/ML) IV STA (12:33)
--- NOTE | 2020-05-04 12:34 | P.PN ---
Subjective patient is seen in follow for acute kidney injury. Renal function continues to improve. Still has an NG tube in place. No significant output from NGT now. No abdominal pain. Maintained on IV fluids. Vital signs are stable. General: The patient appeared well nourished and normally developed. NG tube noted. HEENT: Head exam is unremarkable. Neck is without jugular venous distension. LUNGS: Lungs are clear to auscultation and percussion. Breath sounds decreased. HEART: Rate and Rhythm are regular. ABDOMEN: soft, nontender. EXTREMITITES: No clubbing, cyanosis, or edema. Objective - Vital Signs Vital signs: Vital Signs Temp 98.1 F 05/04/20 08:15 Pulse 62 05/04/20 08:15 Resp 16 05/04/20 08:15 BP 140/63 05/04/20 08:15 Pulse Ox 97 05/04/20 08:15 Intake & Output 05/03/20 05/04/20 05/04/20 18:59 06:59 18:59 Intake Total 230 Output Total 1200 1920 Balance -970 -1920 Weight 64.5 kg Intake: Intake, IV Titration 230 Amount Piperacillin-Tazobactam 3 100 .375 gm In Sodium Chloride 0.9% 100 ml @ 25 mls/hr IVPB Q12HR [facility] Rx #:[id number] Sodium Chloride 0.9% 1, 130 000 ml @ 130 mls/hr IV . Q7H42M [facility] Rx#:[id number] Oral 0 Output: Gastric Drainage 600 1600 Urine 600 320 Other: Voiding Method Indwelling Catheter Indwelling Catheter Indwelling Catheter - Labs CBC & Chem 7: 05/04/20 06:55 05/04/20 06:55 Labs: Abnormal Lab Results - Last 24 Hours (Table) 05/03/20 05/04/20 05/04/20 Range/Units 13:49 06:55 06:55 MCHC 30.7 L (31.0-37.0) g/dL Lymphocytes # 0.5 L (1.0-4.8) k/uL Potassium 3.1 L (3.5-5.1) mmol/L Carbon Dioxide 16 L (22-30) mmol/L BUN 72 H (7-17) mg/dL Creatinine 1.88 H (0.52-1.04) mg/dL Glucose 55 L (74-99) mg/dL Calcium 7.6 L (8.4-10.2) mg/dL Troponin I 0.076 H* (0.000-0.034) ng/mL Microbiology - Last 24 Hours (Table) 05/02/20 10:15 Urine Culture - Preliminary Urine,Catheterized Group D Enterococcus 05/02/20 18:55 Blood Culture - Preliminary Blood No Growth after 24 hours 05/02/20 19:05 Blood Culture - Preliminary Blood No Growth after 24 hours Assessment and Plan Plan: assessment: 1. Acute kidney injury mostly prerenal improving with IV hydration. Creatinine 1.88 today. 2. Hypovolemic hyponatremia improving with IV hydration. 3. Small bowel obstruction. Currently has an NG tube. 4. Hypokalemia from poor intake. 5. Metabolic acidosis secondary to acute kidney injury and IV fluids. 6. UTI. Urine culture positive for group D enterococcus. Maintained on antibiotics. Plan: Maintain normal saline. Replace potassium. 60 mg once today. 2 A of sodium bicarb IV push today. follow-up echocardiogram. repeat electrolytes in the morning.
--- NOTE | 2020-05-04 12:36 | ECHOF ---
Referral Reason:Coronary artery disease, diastolic dysfunction and MEASUREMENTS -------- HEIGHT: 165.1 cm WEIGHT: 64.4 kg BP: 122/67 IVSd: 1.5 cm (0.6 - 1.1) LVIDd: 2.9 cm (3.9 - 5.3) LVPWd: 1.5 cm (0.6 - 1.1) EDV(Teich): 33 ml IVSs: 1.7 cm LVIDs: 1.9 cm LVPWs: 1.9 cm %IVS Thck: 14 % ESV(Teich): 12 ml EF(Teich): 65 % %FS: 34 % SV(Teich): 21 ml LVOT Diam: 1.4 cm RVIDd: 2.7 cm (< 3.3) ROSLYN Planimetry: 1.0 cm LALs A4C: 5.0 cm LAAs A4C: 15.3 cm LAESV A-L A4C: 39 ml LAESV MOD A4C: 37 ml LALs A2C: 5.1 cm LAAs A2C: 18.6 cm LAESV A-L A2C: 58 ml LAESV MOD A2C: 55 ml LAESV(A-L): 48 ml LAESV Index (A-L): 28.06 ml/m Ao Diam: 2.3 cm (2.0 - 3.7) LA Diam: 3.7 cm (2.7 - 3.8) AV Cusp: 1.2 cm (1.5 - 2.6) EPSS: 0.3 cm MV E Gustavo: 1.12 m/s MV DecT: 305 ms MV Dec Mcleod: 3.7 m/s MV A Gustavo: 1.30 m/s MV E/A Ratio: 0.86 MV PHT: 89 ms MR Vmax: 1.86 m/s MR maxP.91 mmHg LVOT Vmax: 1.58 m/s LVOT maxP.00 mmHg AV Vmax: 2.77 m/s AV maxP.69 mmHg ROSLYN Vmax, Pt: 0.9 cm AV Vmax: 2.96 m/s AV Vmean: 2.17 m/s AV maxP.11 mmHg AV meanP.67 mmHg AV Env.Ti: 284 ms AV VTI: 61.6 cm ROSLYN Vmax, Pt: 0.9 cm TR Vmax: 2.50 m/s TR maxP.01 mmHg RAP: 5.00 mmHg RVSP: 30.01 mmHg MV EF SLOPE: 32.75 mm/s (70 - 150) MV EXCURSION: 13.54 mm (> 18.000) FINDINGS -------- This was a technically good study. The left ventricular size is normal. There is moderate concentric left ventricular hypertrophy. O verall left ventricular systolic function is normal with, an EF between 55 - 60 %. Normal LAP. Grad e 1 Diastolic Dysfunction. The right ventricle is normal in size. The left atrial size is normal. Normal LA size by volume 22+/-6 ml/m2. The right atrial size is normal. IAS not well Visualized. Aortic valve is trileaflet and is moderately thickened. There is moderate aortic stenosis present. Peak/mean gradient across the Aortic Valve is 35.11mmHg / 21.67mmHg. (MILD -MODERATE STENSIS The mitral valve is normal. There is trace mitral regurgitation. The tricuspid valve appears structurally normal. Mild tricuspid regurgitation present. Right vent ricular systolic pressure is normal at < 35 mmHg. Trace/mild (physiologic) pulmonic regurgitation. The aortic root size is normal. IVC Not well visulized. There is no pericardial effusion. CONCLUSIONS -------- 1. The left ventricular size is normal. 2. There is moderate concentric left ventricular hypertrophy. 3. Overall left ventricular systolic function is normal with, an EF between 55 - 60 %. 4. Normal LAP. Grade 1 Diastolic Dysfunction. 5. Aortic valve is trileaflet and is moderately thickened. 6. There is moderate aortic stenosis present. 7. Peak/mean gradient across the Aortic Valve is 35.11mmHg / 21.67mmHg. 8. There is trace mitral regurgitation. 9. Mild tricuspid regurgitation present. 10. Trace/mild (physiologic) pulmonic regurgitation. 11. There is no pericardial effusion. [employer]TLE [employer] DRIVER: Kate Pierson RUST
[2020-05-04] MEDS: POTASSIUM CHLORIDE 10 MEQ in WATER FOR INJECTION 1 100ML.BAG IVPB SCH ×2 (13:22→18:18)
--- NOTE | 2020-05-04 15:46 | P.PN ---
Subjective Progress Note Date: 05/04/20 Principal diagnosis: Nausea and vomiting, hematemesis The patient is an 85-year-old white female who came to the emergency department with nausea vomiting and abdominal distention. She had one episode of coffee- ground emesis at home. Gastroccult was positive. No further episodes of coffee-ground appearance is. She had an abdominal x-ray that showed this suboptimal study but possibility of bowel obstruction could not be excluded. An NG tube was placed, she initially had 3 L and the first 24 hours aspirated, she now has green fluid in the NG tube. A CT of the abdomen and pelvis was completed yesterday findings consistent of a small bowel obstruction. Cholelithiasis, noncontrast exam, bilateral pleural effusions. Today she denies any nausea, vomiting, or abdominal pain. She denies any bowel movement since the hospitalization, but states positive flatus. States she is feeling better overall. Objective - Vital Signs Vital signs: Vital Signs Temp 97.6 F 05/04/20 11:50 Pulse 69 05/04/20 11:50 Resp 16 05/04/20 11:50 BP 158/72 05/04/20 11:50 Pulse Ox 97 05/04/20 11:50 Intake & Output 05/03/20 05/04/20 05/04/20 18:59 06:59 18:59 Intake Total 230 Output Total 1200 1920 650 Balance -970 -1920 -650 Weight 64.5 kg Intake: Intake, IV Titration 230 Amount Piperacillin-Tazobactam 3 100 .375 gm In Sodium Chloride 0.9% 100 ml @ 25 mls/hr IVPB Q12HR [facility] Rx #:[id number] Sodium Chloride 0.9% 1, 130 000 ml @ 130 mls/hr IV . Q7H42M [facility] Rx#:[id number] Oral 0 Output: Gastric Drainage 600 1600 Urine 600 320 650 Other: Voiding Method Indwelling Catheter Indwelling Catheter Indwelling Catheter - Exam General appearance: The patient is alert, oriented, in no acute distress. HET: Head is normocephalic and atraumatic. Conjunctiva pink. Sclera anicteric. NG tube in place Neck: Supple without lymphadenopathy. Trachea midline. Abdomen: Soft, nontender, mild distention with bowel sounds. Extremities: Normal skin color and turgor. No Pedal edema. Neurological: No focal deficits. Heart and oriented 3 - Labs CBC & Chem 7: 05/04/20 06:55 05/04/20 06:55 Labs: Abnormal Lab Results - Last 24 Hours (Table) 05/04/20 05/04/20 Range/Units 06:55 06:55 MCHC 30.7 L (31.0-37.0) g/dL Lymphocytes # 0.5 L (1.0-4.8) k/uL Potassium 3.1 L (3.5-5.1) mmol/L Carbon Dioxide 16 L (22-30) mmol/L BUN 72 H (7-17) mg/dL Creatinine 1.88 H (0.52-1.04) mg/dL Glucose 55 L (74-99) mg/dL Calcium 7.6 L (8.4-10.2) mg/dL Microbiology - Last 24 Hours (Table) 05/02/20 10:15 Urine Culture - Preliminary Urine,Catheterized Group D Enterococcus 05/02/20 18:55 Blood Culture - Preliminary Blood No Growth after 24 hours 05/02/20 19:05 Blood Culture - Preliminary Blood No Growth after 24 hours Assessment and Plan (1) Nausea & vomiting Narrative/Plan: This 85-year-old patient who came into the emergency department with nausea vomiting with coffee-ground emesis likely related to partial bowel obstruction. Computed tomography scan of the abdomen and pelvis shows findings consistent with small bowel obstruction. NG tube was placed there was a total of 3 L in 24 hours and has decreases significantly since then. Surgery is on consult for a bowel obstruction. Current Visit: Yes Status: Acute Code(s): R11.2 - NAUSEA WITH VOMITING, UNSPECIFIED SNOMED Code(s): 90718777 (2) Small bowel obstruction Current Visit: Yes Status: Acute Code(s): K56.609 - UNSP INTESTNL OBST, UNSP TO PARTIAL VERSUS COMPLETE OBST SNOMED Code(s): 532696541 (3) ARF (acute renal failure) Narrative/Plan: Acute renal failure secondary to prerenal azotemia significant elevation of the [address] Lucas following the patient closely. She is getting IV hydration. Her BUN and creatinine are gradually improving. Current Visit: Yes Status: Acute Code(s): N17.9 - ACUTE KIDNEY FAILURE, UNSPECIFIED SNOMED Code(s): 82496917 Plan: 1. Continue with NG tube suction. 2. CAT scan of the abdomen viewed showing small bowel obstruction 3. Continue to follow recommendations per surgical services 4. Continue IV hydration 5. Nothing by mouth 6. Repeat abdominal x-ray tomorrow 7. Continue to follow recommendations per nephrology Thank you for this consultation we will sign off at this time, please do not hesitate to contact us with any questions or concerns. The impression and plan of care has been dictated as directed. I performed a history and examination of this patient, discussed the same with the dictator. I agree with the dictator's note ,documented as a scribe. Any additional findings or plans will be noted.
[2020-05-04] MEDS ORDERED: PIPERACILLIN-TAZOBACTAM 3.375 GM in SODIUM CHLORIDE 0.9% 100 ML IVPB SCH (16:00)
--- NOTE | 2020-05-04 17:48 | P.PN ---
Subjective Progress Note Date: 05/04/20 (Enterococcus faecalis UTI, consult Dr. Borjas infectious disease) This is a progress not date of service 05/04/2020. The urine culture grew was Enterococcus faecalis, patient on Zosyn IV piggyback and will consult also Dr. Borjas infectious disease with the underlying high pro- calcitonin and sepsis. Patient is awake conscious alert she has dementia NG tube in place, The patient seen by Dr. De La Fuente today and he will be watching for tomorrow with the underlying small bowel obstruction. Patient seen also by Dr. Segura with a mild elevation of troponin and increase pro-BMP secondary to volume overload, we considered the echocardiogram which result is still pending. Her renal function progressively improving with mainly dehydration and seen by Dr. Castellon the traffic supervisor. Blood pressure is improving as well. On examination: Patient was completely awake which is big difference from yesterday when she was lethargic and a BUN and creatinine has been gradually improving however is not completely resolved. NG tube in place. Head was normocephalic atraumatic. She is nothing by mouth. Hernandez catheter in place. Neck was supple no JVD no thyromegaly no lymphadenopathy trachea midline. Chest was appreciated bilaterally with the underlying probability of volume overload by chest x-ray. Heart was regular sinus rhythm with the underlying with the volume overload but increase pro-BMP and increased troponin and as mentioned Dr. Waters cardiology did see her evaluated there and the echo is pending. The abdomen is distended with NG tube every afternoon and small bowel obstruction no flatness no flatus and no bowel movement so far Extremities no edema and positive pulses. Neuropsychiatry no evidence of stroke no lateralizing sign but she has a dementia Alzheimer's type. With the cognitive function impairment. And anxiety neurosis. Assessment: #1 waiting for small bowel obstruction to resolve on its own or needs further surgical intervention and Dr. Witt saw her today and he will continue follow-up her for that aspect #2 underlying acute kidney injury and she is improving clinically. And the have a good urine output as well. #3 abnormal troponin and pro-BMP and cardiology consulted to manage that part. UTI Enterococcus faecalis and the patient on Zosyn and will consult Dr. Borjas i nfectious disease to evaluate and treat or change antibiotic as needed. Plan: #1 we'll continue the current treatment and continue antibiotic until seen by the infectious disease. #2 will be waiting for the small bowel obstruction resolved or surgical intervention by Dr. De La Fuente. Nephrology continuing to follow-up and continue hydration. And farther treatment depend on the patient improvement or the outcome this is end of dictation Objective - Vital Signs Vital signs: Vital Signs Temp 98.1 F 05/04/20 08:15 Pulse 62 05/04/20 08:15 Resp 16 05/04/20 08:15 BP 140/63 05/04/20 08:15 Pulse Ox 97 05/04/20 08:15 Intake & Output 05/03/20 05/04/20 05/04/20 18:59 06:59 18:59 Intake Total 230 Output Total 1200 1920 Balance -970 -1920 Weight 64.5 kg Intake: Intake, IV Titration 230 Amount Piperacillin-Tazobactam 3 100 .375 gm In Sodium Chloride 0.9% 100 ml @ 25 mls/hr IVPB Q12HR [facility] Rx #:[id number] Sodium Chloride 0.9% 1, 130 000 ml @ 130 mls/hr IV . Q7H42M [facility] Rx#:[id number] Oral 0 Output: Gastric Drainage 600 1600 Urine 600 320 Other: Voiding Method Indwelling Catheter Indwelling Catheter Indwelling Catheter - Constitutional General appearance: Present: average body habitus - EENT Eyes: Present: anicteric sclerae, PERRLA, dentition normal ENT: Present: other (NG tube in place, Hernandez catheter in place.) Ears: bilateral: normal - Neck Neck: Present: normal ROM Carotids: bilateral: bruit absent Thyroid: bilateral: normal size (Within normal limit) - Respiratory Respiratory: bilateral: other (Mild volume overload as possible congestive heart failure) - Cardiovascular Rhythm: regular Heart sounds: normal: S1, S2 - Peripheral edema ankle Peripheral Edema: left: 3+, absent: None - Peripheral pulses dorsalis pedis Peripheral Pulses: bilateral: Normal (Normal limit) - Gastrointestinal General gastrointestinal: Present: absent bowel sounds, distended Localized gastrointestinal: tender: epigastric periumbilical (Small bowel obstruction) - Integumentary Integumentary: Present: decreased turgor - Psychiatric Psychiatric: Present: intact judgment & insight (Dementia, Alzheimer's type) - Labs CBC & Chem 7: 05/04/20 06:55 05/04/20 06:55 Labs: Abnormal Lab Results - Last 24 Hours (Table) 05/03/20 05/04/20 05/04/20 Range/Units 13:49 06:55 06:55 MCHC 30.7 L (31.0-37.0) g/dL Lymphocytes # 0.5 L (1.0-4.8) k/uL Potassium 3.1 L (3.5-5.1) mmol/L Carbon Dioxide 16 L (22-30) mmol/L BUN 72 H (7-17) mg/dL Creatinine 1.88 H (0.52-1.04) mg/dL Glucose 55 L (74-99) mg/dL Calcium 7.6 L (8.4-10.2) mg/dL Troponin I 0.076 H* (0.000-0.034) ng/mL Microbiology - Last 24 Hours (Table) 05/02/20 10:15 Urine Culture - Preliminary Urine,Catheterized Group D Enterococcus 05/02/20 18:55 Blood Culture - Preliminary Blood No Growth after 24 hours 05/02/20 19:05 Blood Culture - Preliminary Blood No Growth after 24 hours - Imaging and Cardiology Chest x-ray: image reviewed (Volume overload) Abdominal x-ray: image reviewed (Small bowel obstruction) CT scan - abdomen: image reviewed (Small bowel obstruction) Echocardiogram requested result is pending, cardiology consultation with Dr. Segura requested with abnormal troponin and abnormal pro BNP.
[2020-05-04] MEDS ORDERED: amLODIPine 5 MG TAB PO SCH (20:00)
--- NOTE | 2020-05-04 22:33 | P.CONS ---
History of Present Illness - Reason for Consult Consult date: 05/04/20 Enterococcus urinary tract infection Requesting physician: Nic Contreras - Chief Complaint Nausea vomiting and confusion x few days - History of Present Illness Patient is a 85-year-old female resident of an assisted living in the past medical history of dementia and the patient was brought into the ER at [facility] on 05/02/2020 for evaluation of confusion nausea vomiting and coffee-ground emesis, patient on presentation hospital has been afe brile and no fever has been recorded during this hospital stay her white count has been normal urine was not significantly positive to either patient did have a Hernandez catheter placed for urinary retention patient did have a abdominal x-ray which was suboptimal overall nonspecific bowel gas pattern, patient subsequently did have a CT of abdominal pelvis completed yesterday it shows findings consist ent with small bowel obstruction cholelithiasis, patient is currently being treated medically with the NG suction patient did culture now showing enterococcus species for which infectious disease was consulted for further management of diabetic therapy patient is on Zosyn, most information has been obtained from review the chart and talking to the has the patient is not good historian Review of Systems Positive points has been mentioned in HPI complete review could not be obtained because of his underlying mental status Past Medical History Past Medical History: Dementia, Hyperlipidemia, Hypertension History of Any Multi-Drug Resistant Organisms: None Reported Past Surgical History: Hysterectomy Past Anesthesia/Blood Transfusion Reactions: No Reported Reaction Past Psychological History: No Psychological Hx Reported Smoking Status: Never smoker Past Alcohol Use History: Occasional Additional Past Alcohol Use History / Comment(s): wine with dinner Past Drug Use History: None Reported Medications and Allergies Home Medications Medication Instructions Recorded Confirmed Type Atorvastatin [Lipitor] 20 mg PO HS@199905/02/20 05/02/20 History Cyanocobalamin (Vitamin B-12) 500 mcg PO DAILY@79905/02/20 05/02/20 History [Vitamin B-12] DULoxetine HCL [Cymbalta] 30 mg PO BID@05/02/20 05/02/20 History Ergocalciferol [Vitamin D2 50,000 units PO MO@79905/02/20 05/02/20 History (DRISDOL)] Losartan Potassium 50 mg PO DAILY@79905/02/20 05/02/20 History Metoprolol Succinate (ER) [Toprol 25 mg PO DAILY@0800 05/02/20 05/02/20 History XL] amLODIPine BESYLATE 5 mg PO HS@199905/02/20 05/02/20 History Allergies Allergy/AdvReac Type Severity Reaction Status Date / Time acetaminophen [From Vicodin] Allergy Unknown Verified 05/02/20 08:57 hydrocodone [From Vicodin] Allergy Unknown Verified 05/02/20 08:57 Physical Exam Vitals: Vital Signs Temp Pulse Resp BP Pulse Ox 05/04/20 08:15 98.1 F 62 16 140/63 97 05/04/20 05:12 98.1 F 64 16 122/67 94 L 05/03/20 23:50 97.9 F 65 15 111/54 94 L 05/03/20 20:00 98.1 F 64 16 125/58 98 05/03/20 16:00 98.2 F 71 18 120/57 92 L Intake and Output 05/04/20 05/04/20 05/04/20 06:59 14:59 22:59 Output Total 1920 650 Balance -1920 -650 Output: Gastric Drainage 1600 Urine 320 650 Other: Voiding Method Indwelling Catheter Indwelling Catheter Weight 64.5 kg GENERAL DESCRIPTION: An elderly female up in the chair, no distress. No tachypnea or accessory muscle of respiration use. HEENT: Shows Pallor , no scleral icterus. Oral mucous membrane is dry. No pharyngeal erythema or thrush NECK: Trachea central, no thyromegaly. LUNGS: Unlabored breathing. Decreased The Base. No wheeze or crackle. HEART: S1, S2, regular rate and rhythm. No loud murmur ABDOMEN: Soft, mild distention, no tenderness , guarding or rigidity, no organomegaly EXTREMITIES: No edema of feet. SKIN: No rash, no masses palpable. NEUROLOGICAL: The patient is awake, alert, oriented x1, mood and affect normal. Results CBC & Chem 7: 05/04/20 06:55 05/04/20 06:55 Labs: Abnormal Lab Results - Last 24 Hours (Table) 05/04/20 05/04/20 Range/Units 06:55 06:55 MCHC 30.7 L (31.0-37.0) g/dL Lymphocytes # 0.5 L (1.0-4.8) k/uL Potassium 3.1 L (3.5-5.1) mmol/L Carbon Dioxide 16 L (22-30) mmol/L BUN 72 H (7-17) mg/dL Creatinine 1.88 H (0.52-1.04) mg/dL Glucose 55 L (74-99) mg/dL Calcium 7.6 L (8.4-10.2) mg/dL Microbiology - Last 24 Hours (Table) 05/02/20 10:15 Urine Culture - Preliminary Urine,Catheterized Group D Enterococcus 05/02/20 18:55 Blood Culture - Preliminary Blood No Growth after 24 hours 05/02/20 19:05 Blood Culture - Preliminary Blood No Growth after 24 hours Assessment and Plan Assessment: 1- patient presented to the hospital with nausea vomiting in this patient has been diagnosed with small bowel obstruction currently being treated medically with the NG suction and bowel rest along with IV antibiotics patient urine culture nausea and enterococcus urinary was not significantly positive however the patient did have urinary retention requiring Hernandez catheter placement and decide how to get further history from this patient regarding any urinary symptoms underlying UTI less likely but not entirely excluded (1) Urinary tract infection Current Visit: Yes Status: Acute Code(s): N39.0 - URINARY TRACT INFECTION, SITE NOT SPECIFIED SNOMED Code(s): 77737506 Plan: 1- patient to continue with Zosyn that should cover both the intra-abdominal process as well as the enterococcus in the urine while waiting for the sensitivity to finalize 2-IV fluids We will follow on clinical condition and cultures to further adjust medication if needed Thank you for this consultation will follow this patient with you Time with Patient: Greater than 30
[2020-05-05] MEDS: SODIUM CHLORIDE 0.9% 1,000 ML IV SCH ×2 (05:41→10:17)
[2020-05-05] MEDS: PIPERACILLIN-TAZOBACTAM 3.375 GM in SODIUM CHLORIDE 0.9% 100 ML IVPB SCH ×3 (05:42→21:30)
[2020-05-05 08:22] LABS: Basophils % (A) 1 %; Eosinophils # (A) 0.1 k/uL (0-0.7); Eosinophils % (A) 1 %; HCT 39.5 % (34.0-46.0); HGB 12.3 gm/dL (11.4-16.0); Lymphocytes # (A) 0.9 k/uL (1.0-4.8); Lymphocytes % (A) 11 %; MCH 29.7 pg (25.0-35.0); MCHC 31.1 g/dL (31.0-37.0); MCV 95.5 fL (80.0-100.0); Mean Platelet Volume 7.5; Monocytes # (A) 0.7 k/uL (0-1.0); Monocytes % (A) 8 %; Neutrophils # (A) 6.5 k/uL (1.3-7.7); Neutrophils % (A) 77 %; Platelet Count 423 k/uL (150-450); RBC 4.13 m/uL (3.80-5.40); RDW 13.2 % (11.5-15.5); WBC 8.4 k/uL (3.8-10.6)
[2020-05-05 08:37] LABS: Calcium 7.9 mg/dL (8.4-10.2); Magnesium 2.2 mg/dL (1.6-2.3)
[2020-05-05] MEDS: PANTOPRAZOLE 40 MG/10 ML VIAL IV SCH ×2 (08:55→21:30)
[2020-05-05] MEDS: METOPROLOL SUCCINATE (ER) 25 MG TAB.ER.24H PO SCH (08:55)
--- NOTE | 2020-05-05 09:24 | XR ---
EXAMINATION TYPE: XR abdomen 2V DATE OF EXAM: 05/05/2020 COMPARISON: 05/03/2020 HISTORY: Follow-up small bowel obstruction TECHNIQUE: One view abdominal series FINDINGS: The osseous structures are intact. The bowel gas pattern is nonspecific. Persistent marked dilation of several small bowel loops are noted. Relative to the prior exam there is no interval improvement. Surgical clip in the pelvis. Arthropathy of the hips with degenerative change of the spine and bilateral lower lobe infiltrate wit h small effusion. IMPRESSION: 1. No significant interval change in marked dilation of small bowel loops most typical of small bowel obstruction.
[2020-05-05] MEDS ORDERED: Potassium Replacement Protocol 1 EACH MISC MISCELLANE PRN (10:01)
[2020-05-05] MEDS ORDERED: POTASSIUM CHLORIDE ER 20 MEQ TAB.ER PO STA (10:03)
--- NOTE | 2020-05-05 10:05 | P.PN ---
Subjective patient is seen in follow for acute kidney injury. Renal function continues to improve. No abdominal pain. Maintained on IV fluids. good urine output. No chest pain or shortness of breath. Vital signs are stable. General: The patient appeared well nourished and normally developed. NG tube noted. HEENT: Head exam is unremarkable. Neck is without jugular venous distension. LUNGS: Lungs are clear to auscultation and percussion. Breath sounds decreased. HEART: Rate and Rhythm are regular. ABDOMEN: soft, nontender. EXTREMITITES: No clubbing, cyanosis, or edema. Objective - Vital Signs Vital signs: Vital Signs Temp 98.6 F 05/05/20 08:45 Pulse 58 L 05/05/20 08:45 Resp 18 05/05/20 08:45 BP 187/78 05/05/20 08:45 Pulse Ox 94 L 05/05/20 08:45 Intake & Output 05/04/20 05/05/20 05/05/20 18:59 06:59 18:59 Intake Total 1200 Output Total 650 1025 Balance -650 175 Weight 76 kg Intake: Intake, IV Titration 1200 Amount Sodium Chloride 0.9% 1, 1200 000 ml @ 100 mls/hr IV . Q10H [facility] Rx#:[id number] Output: Urine 650 1025 Other: Voiding Method Indwelling Catheter Indwelling Catheter Indwelling Catheter # Bowel Movements 0 - Labs CBC & Chem 7: 05/05/20 07:31 05/05/20 07:31 Labs: Abnormal Lab Results - Last 24 Hours (Table) 05/05/20 05/05/20 Range/Units 07:31 07:31 Lymphocytes # 0.9 L (1.0-4.8) k/uL Potassium 3.0 L (3.5-5.1) mmol/L Chloride 110 H (98-107) mmol/L Carbon Dioxide 15 L (22-30) mmol/L BUN 45 H (7-17) mg/dL Creatinine 1.38 H (0.52-1.04) mg/dL Glucose 67 L (74-99) mg/dL Calcium 7.9 L (8.4-10.2) mg/dL HDL Cholesterol 37 L (40-60) mg/dL Microbiology - Last 24 Hours (Table) 05/02/20 18:55 Blood Culture - Preliminary Blood No Growth after 48 hours 05/02/20 19:05 Blood Culture - Preliminary Blood No Growth after 48 hours 05/02/20 10:15 Urine Culture - Preliminary Urine,Catheterized Group D Enterococcus Assessment and Plan Plan: assessment: 1. Acute kidney injury mostly prerenal improving with IV hydration. Creatinine 1.38 today. 2. Hypovolemic hyponatremia improving with IV hydration. 3. Small bowel obstruction. surgery following. 4. Hypokalemia from poor intake. magnesium normal. 5. Metabolic acidosis secondary to acute kidney injury and IV fluids. 6. UTI. Urine culture positive for group D enterococcus. Maintained on antibiotics. 7. Diastolic CHF with moderate aortic stenosis. 8. Benign hypertension. Blood pressure on the higher side. Plan: decreased rate of normal saline to 50 mL an hour. Replace potassium. 60 mg once today. add hydralazine 25 mg 3 times daily. To be held for systolic blood pressure less than 130. Add oral sodium bicarbonate. repeat electrolytes in the morning.
[2020-05-05] MEDS: SODIUM BICARBONATE TAB 650 MG TAB PO SCH ×3 (10:17→21:30)
[2020-05-05] MEDS: POTASSIUM CHLORIDE ER 20 MEQ TAB.ER PO SCH ×2 (11:01→11:58)
--- NOTE | 2020-05-05 12:04 | P.PN ---
Subjective Progress Note Date: 05/05/20 Principal diagnosis: Abnormal cardiac enzymes This is a very pleasant 85-year-old female patient who lives independently with underlying dementia the patient lost her recently presented to the hospital complaining of nausea and vomiting and mild abdominal discomfort. Silva bsequently the patient was diagnosed with what it seems to be small bowel obstruction. She was seen by the general surgery service who recommended a conservative approach and placing an NG tube. The patient was seen yesterday by the general surgery service. Also the patient was found to be slightly dehydrated and she was started on IV fluid. We consulted to see the patient for abnormal troponin. The troponin is very minimally elevated and seems to be flat across support. The patient does not recall having any symptoms of chest pain or chest discomfort nor shortness of breath no dizziness or lightheadedness. No sweating. No loss of consciousness or syncope. Overall she is somewhat poor historian. No underlying history of coronary artery disease and the patient stated that she never had any stents in her heart before. The EKG showed sinus rhythm with diffuse nonspecific ST and T wave abnormalities. Currently the patient is chest pain-free. The patient was seen today May [id number]. She is not nothing by mouth any more. She is asymptomatic from a perivascular standpoint overview. Hemodynamically she is hypertensive was elevated blood pressure. Currently she is on Norvasc as well as hydralazine. I'm going to increase the dose of Norvasc to 5 mg by mouth twice a day. We'll continue following up with the patient. The echo revealed normal left ventricular systolic function was mild aortic stenosis Objective - Vital Signs Vital signs: Vital Signs Temp 98.6 F 05/05/20 08:45 Pulse 58 L 05/05/20 08:45 Resp 18 05/05/20 08:45 BP 187/78 05/05/20 08:45 Pulse Ox 94 L 05/05/20 08:45 Intake & Output 05/04/20 05/05/20 05/05/20 18:59 06:59 18:59 Intake Total 1200 Output Total 650 1025 Balance -650 175 Weight 76 kg Intake: Intake, IV Titration 1200 Amount Sodium Chloride 0.9% 1, 1200 000 ml @ 100 mls/hr IV . Q10H [facility] Rx#:[id number] Output: Urine 650 1025 Other: Voiding Method Indwelling Catheter Indwelling Catheter Indwelling Catheter # Bowel Movements 0 - Constitutional General appearance: Present: no acute distress - Respiratory Respiratory: bilateral: CTA - Cardiovascular Rhythm: regular Heart sounds: normal: S1, S2 Abnormal Heart Sounds: Present: systolic murmur - Labs CBC & Chem 7: 05/05/20 07:31 05/05/20 07:31 Labs: Abnormal Lab Results - Last 24 Hours (Table) 05/05/20 05/05/20 Range/Units 07:31 07:31 Lymphocytes # 0.9 L (1.0-4.8) k/uL Potassium 3.0 L (3.5-5.1) mmol/L Chloride 110 H (98-107) mmol/L Carbon Dioxide 15 L (22-30) mmol/L BUN 45 H (7-17) mg/dL Creatinine 1.38 H (0.52-1.04) mg/dL Glucose 67 L (74-99) mg/dL Calcium 7.9 L (8.4-10.2) mg/dL HDL Cholesterol 37 L (40-60) mg/dL Microbiology - Last 24 Hours (Table) 05/02/20 18:55 Blood Culture - Preliminary Blood No Growth after 48 hours 05/02/20 19:05 Blood Culture - Preliminary Blood No Growth after 48 hours 05/02/20 10:15 Urine Culture - Preliminary Urine,Catheterized Group D Enterococcus Assessment and Plan Assessment: Assessment #1 small bowel obstruction #2 underlying dementia #3 mildly abnormal troponin Plan #1 conservative medical approach at this point in the absence of chest pain and ischemic ST and T wave abnormalities #2 the abnormal troponin is likely secondary to renal failure. Please note that the patient creatinine was 2.77 at today's 1.88 #3 increase the dose of Norvasc #4 follow-up with the patient
--- NOTE | 2020-05-05 12:34 | P.PN ---
Subjective Progress Note Date: 05/05/20 Principal diagnosis: Small bowel obstruction Patient doing about the same today. Her nasogastric tube came out last night. Repeat abdominal x-rays today show small bowel dilation unchanged. Patient is belching. No vomiting. Denies pain. Objective - Vital Signs Vital signs: Vital Signs Temp 98.6 F 05/05/20 08:45 Pulse 58 L 05/05/20 08:45 Resp 18 05/05/20 08:45 BP 187/78 05/05/20 08:45 Pulse Ox 94 L 05/05/20 08:45 Intake & Output 05/04/20 05/05/20 05/05/20 18:59 06:59 18:59 Intake Total 1200 Output Total 650 1025 Balance -650 175 Weight 76 kg Intake: Intake, IV Titration 1200 Amount Sodium Chloride 0.9% 1, 1200 000 ml @ 100 mls/hr IV . Q10H [facility] Rx#:[id number] Output: Urine 650 1025 Other: Voiding Method Indwelling Catheter Indwelling Catheter Indwelling Catheter # Bowel Movements 0 - Exam Abdomen: Soft, mild distention, nontender - Labs CBC & Chem 7: 05/05/20 07:31 05/05/20 07:31 Labs: Abnormal Lab Results - Last 24 Hours (Table) 05/05/20 05/05/20 Range/Units 07:31 07:31 Lymphocytes # 0.9 L (1.0-4.8) k/uL Potassium 3.0 L (3.5-5.1) mmol/L Chloride 110 H (98-107) mmol/L Carbon Dioxide 15 L (22-30) mmol/L BUN 45 H (7-17) mg/dL Creatinine 1.38 H (0.52-1.04) mg/dL Glucose 67 L (74-99) mg/dL Calcium 7.9 L (8.4-10.2) mg/dL HDL Cholesterol 37 L (40-60) mg/dL Microbiology - Last 24 Hours (Table) 05/02/20 18:55 Blood Culture - Preliminary Blood No Growth after 48 hours 05/02/20 19:05 Blood Culture - Preliminary Blood No Growth after 48 hours 05/02/20 10:15 Urine Culture - Preliminary Urine,Catheterized Group D Enterococcus Assessment and Plan (1) Small bowel obstruction Narrative/Plan: Had a long discussion with the patient's [id number] by phone. Apparently the patient was having vomiting that began last Monday. Intermittently was occurring last week until she was noted to be dehydrated and transferred to the hospital. No history of bowel obstruction the past. We'll replace nasogastric tube. Will order a small bowel series tomorrow. If obstruction confirmed Will proceed with exploratory laparotomy. Current Visit: Yes Status: Acute Code(s): K56.609 - UNSP INTESTNL OBST, UNSP TO PARTIAL VERSUS COMPLETE OBST SNOMED Code(s): 321712071
[2020-05-05] MEDS: hydrALAZINE HCL 25 MG TAB PO SCH ×2 (15:40→21:29)
--- NOTE | 2020-05-05 15:40 | PN ---
PROGRESS NOTE DATE OF SERVICE: 05/05/2020. REASON FOR FOLLOWUP: Enterococcus drug infection. INTERVAL HISTORY: Patient is currently afebrile, the patient is breathing comfortably, has been discontinued. Denies having any chest pain or cough. No abdominal pain. Did have small bowel movement and no vomiting. PHYSICAL EXAMINATION: Blood pressure 134/74 with a pulse of 60, temperature 98.3. She is 97% on room air. General description is an elderly female, lying in bed in no distress. RESPIRATORY SYSTEM: Unlabored breathing, clear to auscultation anteriorly. HEART: S1, S2. Regular rate and rhythm. ABDOMEN: Soft, no tenderness. LABS: Hemoglobin is 12.8, white count 8.4, BUN 45, creatinine 1.38. Urine has been finalized with Enterococcus sensitive to penicillin. DIAGNOSTIC IMPRESSION: Patient with Enterococcus infection, already on Zosyn. Patient to continue and monitor clinical course closely. MMODL / IJN: [id number] /
--- NOTE | 2020-05-05 17:12 | P.PN ---
Subjective Progress Note Date: 05/05/20 (Acute kidney injury, severe dehydration, acute small bowel obstruction) Dictation on the progress note date of service 05/05/2020. Patient had bowel movement last night however her abdomen is silent no passing gases and still small bowel obstruction. Patient progressively improving her renal function with the underlying acute kidney injury and progressively the creatinine is improving she had a Hernandez catheter with good output. And followed by nephrology, she had a hypokalemia and has been supplemented. Was still monitoring her BMP. I did discuss it with Dr. De La Fuente the surgeon and we will be also waiting for tomorrow and Monday the 05/06/2020 with the hope that patient opened up and if not arrhythmias that Dr. Witt the surgeon will be taking her to the OR hopefully she will be reversed by tomorrow, she could not tolerate placement of the NG tube and the nursing staff could not able to put back and she is aggressively fighting at. She had history of hypertension with hypertensive heart disease, she has mild elevation of troponin as well as pro-BMP seen by cardiology Dr. Segura as well. The urine culture was enterococcus faecalis group D sensitive to penicillin, seen by Dr. Borjas infectious disease and continued on the Zosyn. She had history of chronic cholelithiasis lithiasis and I hope that not participating in the current small bowel obstruction. Patient started on some oral medication that she had at home however we held losartan with acute kidney injury. And the blood pressure responded very well. Laboratories: Hypokalemia which is supplemented by the order of nephrology. Physical exam: Patient with dementia, awake alert and able to communicate but she is confused 3 Natural teeth, she is still nothing by mouth because of small bowel obstruction, head was normocephalic and atraumatic pupil was equal reactive, no icterus. Neck was supple no JVD no thyromegaly no lymphadenopathy trachea midline. Chest lung is created bilateral no wheezes no rhonchi's. Heart was regular sinus rhythm and followed by Dr. Segura cardiology because of the mild elevation of troponin and pro-BMP with the probably folio overload. Abdomen: Silent could not hear bowel sounds tender in the mid quadrant with deep palpation. Extremities no edema and positive pulses. Neuropsychiatry: Gen. anxiety disorder, dementia, Alzheimer's disease and no history of stroke in the past. Able to move the 4 extremities. Assessment: #1 severe dehydration #2 acute kidney injury #3 acute small bowel o bstruction #4 dementia Alzheimer's type with no history of a stroke in the back in the past. #5 hypertension was hypertensive heart disease. #6 degenerative osteoarthritis of the lumbosacral spine with the previous history of spinal stenosis. Plan: #1 waiting for conservative treatment for the small bowel obstruction with limitation. #2 continue monitoring and treated the electrolyte imbalance and the acute kidney injury with hydration. Thanks for nephrology and cardiology and surgery and infectious disease for their effort. Patient definitely clinical improvement however small bowel still appears to be obstructed. Objective - Vital Signs Vital signs: Vital Signs Temp 98.7 F 05/05/20 15:54 Pulse 60 05/05/20 15:54 Resp 18 05/05/20 15:54 BP 145/69 05/05/20 15:54 Pulse Ox 96 05/05/20 15:54 Intake & Output 05/04/20 05/05/20 05/05/20 18:59 06:59 18:59 Intake Total 1200 760 Output Total 650 1025 Balance -650 175 760 Weight 76 kg Intake: Intake, IV Titration 1200 300 Amount Piperacillin-Tazobactam 3 100 .375 gm In Sodium Chloride 0.9% 100 ml @ 25 mls/hr IVPB Q8HR [facility] Rx# :[id number] Sodium Chloride 0.9% 1, 1200 200 000 ml @ 50 mls/hr IV . Q20H [facility] Rx#:[id number] Oral 460 Output: Urine 650 1025 Other: Voiding Method Indwelling Catheter Indwelling Catheter Indwelling Catheter # Bowel Movements 0 - Labs CBC & Chem 7: 05/05/20 07:31 05/05/20 07:31 Labs: Abnormal Lab Results - Last 24 Hours (Table) 05/05/20 05/05/20 Range/Units 07:31 07:31 Lymphocytes # 0.9 L (1.0-4.8) k/uL Potassium 3.0 L (3.5-5.1) mmol/L Chloride 110 H (98-107) mmol/L Carbon Dioxide 15 L (22-30) mmol/L BUN 45 H (7-17) mg/dL Creatinine 1.38 H (0.52-1.04) mg/dL Glucose 67 L (74-99) mg/dL Calcium 7.9 L (8.4-10.2) mg/dL HDL Cholesterol 37 L (40-60) mg/dL Microbiology - Last 24 Hours (Table) 05/02/20 10:15 Urine Culture - Final Urine,Catheterized Enterococcus faecalis 05/02/20 18:55 Blood Culture - Preliminary Blood No Growth after 48 hours 05/02/20 19:05 Blood Culture - Preliminary Blood No Growth after 48 hours
[2020-05-05] MEDS: amLODIPine 5 MG TAB PO SCH (21:29)
[2020-05-06] MEDS: PIPERACILLIN-TAZOBACTAM 3.375 GM in SODIUM CHLORIDE 0.9% 100 ML IVPB SCH ×3 (05:18→21:10)
[2020-05-06] MEDS: SODIUM CHLORIDE 0.9% 1,000 ML IV SCH ×2 (05:18→13:58)
[2020-05-06 07:23] LABS: Magnesium 1.9 mg/dL (1.6-2.3); Potassium 3.2 mmol/L (3.5-5.1)
[2020-05-06] MEDS: SODIUM BICARBONATE TAB 650 MG TAB PO SCH ×3 (09:30→21:01)
[2020-05-06] MEDS ORDERED: Potassium Replacement Protocol 1 EACH MISC MISCELLANE PRN ×2 (11:36→14:18)
[2020-05-06] MEDS: hydrALAZINE HCL 25 MG TAB PO SCH ×2 (11:57→13:58)
[2020-05-06] MEDS: PANTOPRAZOLE 40 MG/10 ML VIAL IV SCH ×2 (11:57→21:04)
[2020-05-06] MEDS: POTASSIUM CHLORIDE ER 20 MEQ TAB.ER PO SCH ×2 (13:58→14:23)
[2020-05-06] MEDS: amLODIPine 5 MG TAB PO SCH ×2 (13:58→21:01)
[2020-05-06] MEDS: METOPROLOL SUCCINATE (ER) 25 MG TAB.ER.24H PO SCH (13:58)
--- NOTE | 2020-05-06 14:18 | FL ---
EXAMINATION TYPE: FL small bowel follow through DATE OF EXAM: 05/06/2020 COMPARISON: None HISTORY: Small bowel obstruction versus ileus TECHNIQUE: Sequential overhead radiographs were obtained following the oral administration of 12 ounc es of barium. FINDINGS: There are dilated small bowel loops extending to the right lower quadrant. Following the or al administration of barium sequential overhead radiographs were obtained. Contrast extends to the di stal jejunum. Fluoroscopic imaging was performed. Real-time observation was performed. Contrast exte nds to the distal jejunal region. No additional foreign motion is evident at 4 hours. IMPRESSION: 1. Appears to be complete obstruction at the distal jejunum midabdomen region. Report was called to Dr. Witt by Dr. Horton by telephone approximately 1300 hours.
--- NOTE | 2020-05-06 14:43 | P.PN ---
Subjective Progress Note Date: 05/06/20 (Small bowel obstruction distal jejunum complete, acute kidney injury, dehydration, Enterococcus faecalis group D, sepsis) This is a progress note 05/06/2020. Patient seen and evaluated and also reviewed the medical record. Patient had today by ordering Dr. De La Fuente small bowel x-ray with the fluoroscopy, found to have complete obstruction of the distal she regimen with sequential normal barium and real-time observation. Patient hypokalemia has been supplemented Patient had metabolic acidosis secondary to sepsis and obstruction. Patient cavity today for having the NG tube with the persistent small bowel obstruction. She had borderline blood sugar hypoglycemia and will change IV to D5 0.9 normal saline couldn't for continuing hydration. Acute kidney injury with progressive improvement and currently her BUN 33 and creatinine 1.24 which is started with BUN of 117 and a creatinine 3.32. The NG tube has been in place at this time and she had a Hernandez catheter and the IV changed to D5 0.9 normal saline 50 mL an hour. Patient seen and evaluated by Dr. Witt the surgeon and will be going tomorrow f or small bowel obstruction surgery with the possibility of the cholecystectomy at the same time with the underlying cholelithiasis and possibly inflammation of the gallbladder. Patient has sepsis with the Enterococcus faecalis group D and treated with Zosyn as well. On the physical examination: She had a hypertension with hypertensive heart disease as well on admission she had bought the mild elevation of troponin and proBNP with the underlying supply and demand patient did not complain of chest pain. She has oral antihypertensive medication which is adjusted by Dr. Segura and today they will adjust medication to be IV with the patient nothing by mouth with a small bowel obstruction. Patient is conscious alert however confused 3 she able to recognize me however. HEENT the head was normocephalic and atraumatic pupils equal reactive conjunctiva was pink sclera were nonicteric. Oropharynx she had natural teeth and NG tube in place. Neck was supple no JVD no thyromegaly no lymphadenopathy trachea midline. Chest breath sound is present bilaterally and she had history of volume overload which she decrease his IV fluid and by mouth and noticed that her blood sugar in the 60 and 70 and she is nothing by mouth we will change IV fluid to D5 0.9 normal saline 50 mL an hour. Heart she is sinus rhythm at this time with the hypertension and the cardiology will adjust her medication. No chest pain. Abdomen positive bowel sounds high pitch with the underlying obstruction at the distal jejunum which was found also today by the small bowel x-ray with the sequential camera and real-time observation need for surgical intervention. Extremities no edema and positive pulses. Neuropsychiatry dementia and pulse of cognitive function improvement. The Assessment: Acute bowel obstruction, electrolyte imbalance with hypokalemia, acute kidney injury progressively improving., Hypertension with hypertensive heart disease, nothing by mouth. Plan: We'll continue the antibiotic and followed by Dr. Borjas infectious disease as well as Dr. Segura cardiology. Patient will going tomorrow for surgery for repair of the small bowel obstruction with possible cholelithiasis and possible cholecystitis unclear at this time until surgery intended. Next and revision with the small bowel obstruction distal February general complete obstruction continue supplementation and NG tube was placed with the suction until surgical intervention. ( Objective - Vital Signs Vital signs: Vital Signs Temp 98.3 F 05/06/20 14:17 Pulse 61 05/06/20 14:17 Resp 18 05/06/20 14:17 BP 190/91 05/06/20 14:17 Pulse Ox 96 05/06/20 14:17 Intake & Output 05/05/20 05/06/20 05/06/20 18:59 06:59 18:59 Intake Total 760 660 100 Output Total 875 Balance 760 -215 100 Weight 73.3 kg 73.3 kg Intake: IV 100 Piperacillin-Tazobactam 3 100 .375 gm In Sodium Chloride 0.9% 100 ml @ 25 mls/hr IVPB Q8H [facility] Rx#: [id number] Intake, IV Titration 300 660 Amount Piperacillin-Tazobactam 3 100 .375 gm In Sodium Chloride 0.9% 100 ml @ 25 mls/hr IVPB Q8H [facility] Rx#: [id number] Piperacillin-Tazobactam 3 100 .375 gm In Sodium Chloride 0.9% 100 ml @ 25 mls/hr IVPB Q8HR [facility] Rx# :[id number] Sodium Chloride 0.9% 1, 200 560 000 ml @ 50 mls/hr IV . Q20H [facility] Rx#:[id number] Oral 460 Output: Urine 875 Other: Voiding Method Indwelling Catheter Indwelling Catheter Indwelling Catheter - Labs CBC & Chem 7: 05/05/20 07:31 05/06/20 06:54 Labs: Abnormal Lab Results - Last 24 Hours (Table) 05/06/20 Range/Units 06:54 Potassium 3.2 L (3.5-5.1) mmol/L Chloride 108 H (98-107) mmol/L Carbon Dioxide 19 L (22-30) mmol/L BUN 33 H (7-17) mg/dL Creatinine 1.24 H (0.52-1.04) mg/dL Glucose 70 L (74-99) mg/dL Calcium 8.0 L (8.4-10.2) mg/dL Microbiology - Last 24 Hours (Table) 05/02/20 18:55 Blood Culture - Preliminary Blood No Growth after 72 hours 05/02/20 19:05 Blood Culture - Preliminary Blood No Growth after 72 hours 05/02/20 10:15 Urine Culture - Final Urine,Catheterized Enterococcus faecalis
[2020-05-06] MEDS: DEXTROSE 5%-0.9% NACL 1,000 ML IV SCH (14:51)
--- NOTE | 2020-05-06 14:57 | XR ---
EXAMINATION TYPE: XR chest 1V portable DATE OF EXAM: 05/06/2020 COMPARISON: 05/04/2020 HISTORY: NG tube placement TECHNIQUE: AP upright abdomen FINDINGS: Nasogastric tube extends towards the distal esophagus internus back upon itself and heads t owards the proximal esophagus out of the [id number]. Contrast present within the stomach and dila lito small bowel loops IMPRESSION: 1. Nasogastric tube is curled within the distal esophagus. Repositioning is recommended.
[2020-05-06] MEDS: POTASSIUM CHLORIDE 10 MEQ in WATER FOR INJECTION 1 100ML.BAG IVPB SCH ×4 (14:59→18:43)
--- NOTE | 2020-05-06 15:17 | P.PN ---
<Essie Meléndez - Last Filed: 05/06/20 15:10> Subjective Progress Note Date: 05/06/20 CHIEF COMPLAINT: Small bowel obstruction HISTORY OF PRESENT ILLNESS: Patient is having some nausea today. Abdomen is still distended. No bowel movement today. Had small bowel series results stating complete obstruction at the distal jejunum mid abdomen region. Patient has had NG tube reinserted. She is scheduled for surgery tomorrow. She is afebrile. BP elevated at 190/91 cardiology has added hydralazine Yesterday WBC 8.4 potassium is 3.2 and being replaced creatinine 1.24 PHYSICAL EXAM: VITAL SIGNS: Reviewed. GENERAL: Well-developed in no acute distress. HEENT: No sclera icterus. Extraocular movements grossly intact. Moist buccal mucosa. Head is atraumatic, normocephalic. ABDOMEN: Soft. Distended. Nontender NEUROLOGIC: Alert and oriented. Cranial nerves II through XII grossly intact. ASSESSMENT: 1. Small bowel obstruction PLAN: -Plan for exploratory laparotomy with possible bowel resection and ostomy tomorrow 05/07/[address] Witt -NG tube for decompression -Zofran as needed for nausea Physician Music Publisher note has been reviewed by physician. Signing provider agrees with the documented findings, assessment, and plan of care. Objective - Vital Signs Vital signs: Vital Signs Temp 98.3 F 05/06/20 14:17 Pulse 61 05/06/20 14:17 Resp 18 05/06/20 14:17 BP 190/91 05/06/20 14:17 Pulse Ox 96 05/06/20 14:17 Intake & Output 05/05/20 05/06/20 05/06/20 18:59 06:59 18:59 Intake Total 760 660 100 Output Total 875 Balance 760 -215 100 Weight 73.3 kg 73.3 kg Intake: IV 100 Piperacillin-Tazobactam 3 100 .375 gm In Sodium Chloride 0.9% 100 ml @ 25 mls/hr IVPB Q8H [facility] Rx#: [id number] Intake, IV Titration 300 660 Amount Piperacillin-Tazobactam 3 100 .375 gm In Sodium Chloride 0.9% 100 ml @ 25 mls/hr IVPB Q8H [facility] Rx#: [id number] Piperacillin-Tazobactam 3 100 .375 gm In Sodium Chloride 0.9% 100 ml @ 25 mls/hr IVPB Q8HR [facility] Rx# :[id number] Sodium Chloride 0.9% 1, 200 560 000 ml @ 50 mls/hr IV . Q20H [facility] Rx#:[id number] Oral 460 Output: Urine 875 Other: Voiding Method Indwelling Catheter Indwelling Catheter Indwelling Catheter - Labs CBC & Chem 7: 05/05/20 07:31 05/06/20 06:54 Labs: Abnormal Lab Results - Last 24 Hours (Table) 05/06/20 Range/Units 06:54 Potassium 3.2 L (3.5-5.1) mmol/L Chloride 108 H (98-107) mmol/L Carbon Dioxide 19 L (22-30) mmol/L BUN 33 H (7-17) mg/dL Creatinine 1.24 H (0.52-1.04) mg/dL Glucose 70 L (74-99) mg/dL Calcium 8.0 L (8.4-10.2) mg/dL Microbiology - Last 24 Hours (Table) 05/02/20 18:55 Blood Culture - Preliminary Blood No Growth after 72 hours 05/02/20 19:05 Blood Culture - Preliminary Blood No Growth after 72 hours 05/02/20 10:15 Urine Culture - Final Urine,Catheterized Enterococcus faecalis <Rui Witt - Last Filed: 05/06/20 19:24> Subjective As above. Small bowel series consistent with obstruction. Findings discussed with the patient's son. He is agreeable to proceeding with exploratory laparotomy. Risks of bleeding, infection, bowel resection, leak, abscess, hernia, recurrent obstruction, potential need for ostomy, cardiac and respiratory complications were discussed with the patient's son. He is agreeable. We will have reattempts at nasogastric tube placement. Objective - Vital Signs Vital signs: Vital Signs Temp 98.7 F 05/06/20 16:00 Pulse 69 05/06/20 17:10 Resp 18 05/06/20 17:10 BP 170/74 05/06/20 17:10 Pulse Ox 96 05/06/20 14:17 Intake & Output 05/06/20 05/06/20 05/07/20 06:59 18:59 06:59 Intake Total 660 100 Output Total 875 Balance -215 100 Weight 73.3 kg 73.3 kg Intake: IV 100 Piperacillin-Tazobactam 3 100 .375 gm In Sodium Chloride 0.9% 100 ml @ 25 mls/hr IVPB Q8H [facility] Rx#: [id number] Intake, IV Titration 660 Amount Piperacillin-Tazobactam 3 100 .375 gm In Sodium Chloride 0.9% 100 ml @ 25 mls/hr IVPB Q8H [facility] Rx#: [id number] Sodium Chloride 0.9% 1, 560 000 ml @ 50 mls/hr IV . Q20H [facility] Rx#:[id number] Output: Urine 875 Other: Voiding Method Indwelling Catheter Indwelling Catheter - Labs CBC & Chem 7: 05/05/20 07:31 05/06/20 06:54 Labs: Abnormal Lab Results - Last 24 Hours (Table) 05/06/20 Range/Units 06:54 Potassium 3.2 L (3.5-5.1) mmol/L Chloride 108 H (98-107) mmol/L Carbon Dioxide 19 L (22-30) mmol/L BUN 33 H (7-17) mg/dL Creatinine 1.24 H (0.52-1.04) mg/dL Glucose 70 L (74-99) mg/dL Calcium 8.0 L (8.4-10.2) mg/dL Microbiology - Last 24 Hours (Table) 05/02/20 18:55 Blood Culture - Preliminary Blood No Growth after 72 hours 05/02/20 19:05 Blood Culture - Preliminary Blood No Growth after 72 hours Assessment and Plan (1) Small bowel obstruction Current Visit: Yes Status: Acute Code(s): K56.609 - UNSP INTESTNL OBST, UNSP TO PARTIAL VERSUS COMPLETE OBST SNOMED Code(s): 673252178
[2020-05-06] MEDS: ONDANSETRON 4 MG/2 ML VIAL IVP PRN (17:12)
[2020-05-06] MEDS: METOPROLOL TARTRATE 5 MG/5 ML VIAL IVP SCH ×2 (17:53→23:34)
[2020-05-06] MEDS: hydrALAZINE HCL 20 MG/ML 1 ML VIAL IVP SCH ×2 (17:53→21:04)
[2020-05-06] MEDS ORDERED: POTASSIUM CHLORIDE 10 MEQ in WATER FOR INJECTION 1 100ML.BAG IVPB STA (22:40)
--- NOTE | 2020-05-06 23:01 | PN ---
PROGRESS NOTE DATE OF SERVICE: 05/06/2020 REASON FOR FOLLOWUP: Enterococcus urinary tract infection and ileus. INTERVAL HISTORY: The patient is currently afebrile. The patient is status post small-bowel x-ray with complete obstruction at the distal jejunum, mid abdominal region. Surgery has seen the patient with plan for possible surgery tomorrow. The patient currently denies having any chest pain or shortness of breath or cough. No nausea, vomiting or diarrhea. PHYSICAL EXAMINATION: Blood pressure 170/74 with a pulse of 69, temperature 98.7. She is 95% on room air. General description is an elderly female up in the chair in no distress. RESPIRATORY SYSTEM: Unlabored breathing with decreased breath sounds at the base. No wheeze. HEART: S1, S2. Regular rate and rhythm. ABDOMEN: Soft. No tenderness. LABS: Creatinine is 1.24. Urine with Enterococcus. Blood culture has been negative. DIAGNOSTIC IMPRESSION AND PLAN: Patient with Enterococcus faecalis bacteremia in this patient who did have a small bowel obstruction. The patient is currently covered with Zosyn; to continue while waiting condition to stabilize. Continue with supportive care. MMODL / IJN: [id number] /
[2020-05-07] MEDS: hydrALAZINE HCL 20 MG/ML 1 ML VIAL IVP SCH ×3 (06:34→18:38)
[2020-05-07] MEDS: METOPROLOL TARTRATE 5 MG/5 ML VIAL IVP SCH ×4 (06:34→23:25)
[2020-05-07] MEDS: PIPERACILLIN-TAZOBACTAM 3.375 GM in SODIUM CHLORIDE 0.9% 100 ML IVPB SCH ×3 (06:35→20:56)
[2020-05-07] MEDS ORDERED: DEXAMETHASONE SOD PHOSPHATE 10 MG/ML 1 ML VIAL IV ONE (07:44)
[2020-05-07] MEDS ORDERED: HYDROmorphone 0.5 MG/0.5 ML SYRINGE IVP PRN (07:44)
[2020-05-07] MEDS ORDERED: LIDOCAINE 1% (10MG/ML) FOR IV START INTRADERMA PRN (07:44)
[2020-05-07] MEDS ORDERED: ONDANSETRON 4 MG/2 ML VIAL IVP PRN (07:44)
[2020-05-07] MEDS ORDERED: ONDANSETRON 4 MG/2 ML VIAL IVP ONE (07:44)
[2020-05-07 07:55] LABS: Basophils # (A) 0.1 k/uL (0-0.2); Basophils % (A) 1 %; Eosinophils # (A) 0.1 k/uL (0-0.7); Eosinophils % (A) 1 %; HCT 40.4 % (34.0-46.0); HGB 13.1 gm/dL (11.4-16.0); Lymphocytes # (A) 1.3 k/uL (1.0-4.8); Lymphocytes % (A) 10 %; MCH 30.6 pg (25.0-35.0); MCHC 32.5 g/dL (31.0-37.0); MCV 94.1 fL (80.0-100.0); Mean Platelet Volume 7.2; Monocytes # (A) 0.8 k/uL (0-1.0); Monocytes % (A) 6 %; Neutrophils # (A) 10.5 k/uL (1.3-7.7); Neutrophils % (A) 81 %; Platelet Count 416 k/uL (150-450); RBC 4.29 m/uL (3.80-5.40); RDW 13.7 % (11.5-15.5)
[2020-05-07 08:04] LABS: Calcium 8.1 mg/dL (8.4-10.2); Magnesium 1.8 mg/dL (1.6-2.3)
[2020-05-07] MEDS: amLODIPine 5 MG TAB PO SCH ×2 (08:55→20:44)
[2020-05-07] MEDS: SODIUM BICARBONATE TAB 650 MG TAB PO SCH ×3 (08:55→20:45)
[2020-05-07] MEDS: ONDANSETRON 4 MG/2 ML VIAL IVP PRN (08:58)
[2020-05-07] MEDS: PANTOPRAZOLE 40 MG/10 ML VIAL IV SCH ×2 (08:58→20:56)
[2020-05-07] MEDS: LACTATED RINGERS 1,000 ML IV SCH (09:12)
--- NOTE | 2020-05-07 09:15 | P.PN ---
Subjective Progress Note Date: 05/07/20 Principal diagnosis: Abnormal cardiac enzymes This is a very pleasant 85-year-old female patient who lives independently with underlying dementia the patient lost her recently presented to the hospital complaining of nausea and vomiting and mild abdominal discomfort. Silva bsequently the patient was diagnosed with what it seems to be small bowel obstruction. She was seen by the general surgery service who recommended a conservative approach and placing an NG tube. The patient was seen yesterday by the general surgery service. Also the patient was found to be slightly dehydrated and she was started on IV fluid. We consulted to see the patient for abnormal troponin. The troponin is very minimally elevated and seems to be flat across support. The patient does not recall having any symptoms of chest pain or chest discomfort nor shortness of breath no dizziness or lightheadedness. No sweating. No loss of consciousness or syncope. Overall she is somewhat poor historian. No underlying history of coronary artery disease and the patient stated that she never had any stents in her heart before. The EKG showed sinus rhythm with diffuse nonspecific ST and T wave abnormalities. Currently the patient is chest pain-free. The patient was seen today May [id number]. She is going to undergo exploratory laparotomy this morning. Clinically she denies any chest pain or chest discomfort. Hemodynamically she is a stable. The echo showed normal LV function. From a cardiovascular standpoint of view, the patient can pursue with the surgery. Objective - Vital Signs Vital signs: Vital Signs Temp 98.7 F 05/07/20 08:05 Pulse 77 05/07/20 08:05 Resp 16 05/07/20 08:05 BP 133/60 05/07/20 08:05 Pulse Ox 93 L 05/07/20 08:05 Intake & Output 05/06/20 05/07/20 05/07/20 18:59 06:59 18:59 Intake Total 100 400 Balance 100 400 Weight 73.3 kg 79 kg Intake: IV 100 100 Piperacillin-Tazobactam 3 100 100 .375 gm In Sodium Chloride 0.9% 100 ml @ 25 mls/hr IVPB Q8H [facility] Rx#: [id number] Intake, IV Titration 300 Amount Dextrose 5%-0.9% NaCl 1, 200 000 ml @ 50 mls/hr IV . Q20H [facility] Rx#:[id number] Potassium Chloride 10 meq 100 In Water For Injection 1 100ml.bag @ 100 mls/hr IVPB [facility] Rx#: [id number] Oral 0 Other: Voiding Method Indwelling Catheter Indwelling Catheter - Constitutional General appearance: Present: no acute distress - Respiratory Respiratory: bilateral: diminished - Cardiovascular Heart sounds: normal: S1, S2 - Labs CBC & Chem 7: 05/07/20 07:14 05/07/20 07:14 Labs: Abnormal Lab Results - Last 24 Hours (Table) 05/07/20 05/07/20 Range/Units 07:14 07:14 WBC 13.0 H (3.8-10.6) k/uL Neutrophils # 10.5 H (1.3-7.7) k/uL Chloride 109 H (98-107) mmol/L Carbon Dioxide 21 L (22-30) mmol/L BUN 25 H (7-17) mg/dL Creatinine 1.11 H (0.52-1.04) mg/dL Glucose 142 H (74-99) mg/dL Calcium 8.1 L (8.4-10.2) mg/dL Microbiology - Last 24 Hours (Table) 05/02/20 18:55 Blood Culture - Preliminary Blood No Growth after 96 hours 05/02/20 19:05 Blood Culture - Preliminary Blood No Growth after 96 hours Assessment and Plan Assessment: Assessment #1 small bowel obstruction #2 underlying dementia #3 mildly abnormal troponin Plan #1 continue the current medical regimen #2 the patient can pursue with the surgery
[2020-05-07] MEDS ORDERED: IV FLUID CONTINUATION 1,000 ML IV ONE (10:14)
[2020-05-07] MEDS ORDERED: HEPARIN SODIUM,PORCINE 5,000 UNIT/ML 1 ML VIAL ONE (10:31)
[2020-05-07] MEDS ORDERED: HEPARIN SODIUM,PORCINE 5,000 UNIT/ML 1 ML VIAL SQ ONE (10:34)
[2020-05-07] MEDS ORDERED: NEOSTIGMINE 1 MG/ML 10 ML VIAL ONE (10:39)
[2020-05-07] MEDS ORDERED: SUCCINYLCHOLINE CHLORIDE 100 MG/5 ML SYR IV ONE (10:39)
[2020-05-07] MEDS ORDERED: fentaNYL (PF) 50 MCG/ML 2 ML AMP ONE (10:39)
[2020-05-07] MEDS ORDERED: MIDAZOLAM 2 MG/2 ML VIAL ONE (10:39)
[2020-05-07] MEDS ORDERED: LIDOCAINE 1% INJ 10MG/ML (20 ML MDV) ONE (10:39)
[2020-05-07] MEDS ORDERED: PHENYLEPHRINE-0.9% NACL SYG 1 MG/10 ML SYRINGE ONE (10:39)
[2020-05-07] MEDS ORDERED: GLYCOPYRROLATE 0.2 MG/ML 2 ML VIAL ONE (10:39)
[2020-05-07] MEDS ORDERED: PROPOFOL 10 MG/ML 20 ML VIAL IV ONE (10:39)
[2020-05-07] MEDS ORDERED: ROCURONIUM 10 MG/ML (5 ML VIAL) IV ONE (10:39)
[2020-05-07] MEDS: DEXTROSE 5%-0.9% NACL 1,000 ML IV SCH (10:41)
--- NOTE | 2020-05-07 12:02 | P.OP ---
Date of Procedure: 05/07/20 Procedure(s) Performed: PREOPERATIVE DIAGNOSIS: Small bowel obstruction POSTOPERATIVE DIAGNOSIS: Small bowel obstruction secondary to intra-abdominal adhesions PROCEDURE: Exploratory laparotomy with lysis of adhesions SURGEON: Miryam EBL: 10 mL ANESTHESIA: Gen. COMPLICATIONS: None OPERATIVE PROCEDURE: Patient placed in the operating table in the supine position. Patient was placed under general anesthesia. Preoperative nasogastric tube was placed with over 1 L of gastric contents evacuated. Later during the procedure and additional 500-1 L was removed. Midline incision was then created after prepping the abdomen sterilely. Dissection through the subcutaneous fat and fascia took place using electrocautery. The patient had serous fluid within the abdomen that was evacuated. The small bowel was inspected. The proximal small bowel was distended and the distal small bowel was collapsed. As we followed the small bowel from proximal to distal an adhesive band was identified causing an internal hernia. The bowel present in the internal hernia was viable after lysing the adhesive band. No further obstructions were seen. The patient had additional adhesions between the omentum and the pelvis that were lysed. There were 2-3 openings present there that could've also represented potential internal hernia sites. Following that the midline fascia was reapproximated using 2 separate double-stranded #1 PDS sutures. Skin closed using adelina. Sterile dressings applied. DISPOSITION: Stable to recovery room
--- NOTE | 2020-05-07 13:07 | P.PN ---
Subjective patient is seen in follow for acute kidney injury. Renal function continues to improve. No abdominal pain. Maintained on IV fluids. good urine output. No chest pain or shortness of breath. Underwent exploratory laparotomy with lysis of adhesions this morning. Family present at bedside. Vital signs are stable. General: The patient appeared well nourished and normally developed. NG tube noted. HEENT: Head exam is unremarkable. Neck is without jugular venous distension. LUNGS: Lungs are clear to auscultation and percussion. Breath sounds decreased. HEART: Rate and Rhythm are regular. ABDOMEN: Surgical abdomen. EXTREMITITES: No clubbing, cyanosis, or edema. Objective - Vital Signs Vital signs: Vital Signs Temp 98.2 F 05/07/20 11:54 Pulse 75 05/07/20 12:39 Resp 16 05/07/20 12:39 BP 126/54 05/07/20 12:39 Pulse Ox 99 05/07/20 12:39 Intake & Output 05/06/20 05/07/20 05/07/20 18:59 06:59 18:59 Intake Total 100 400 880 Output Total 360 Balance 100 400 520 Weight 73.3 kg 79 kg Intake: IV 100 100 880 Invasive Line 3 20 Invasive Line 4 10 Piperacillin-Tazobactam 3 100 100 .375 gm In Sodium Chloride 0.9% 100 ml @ 25 mls/hr IVPB Q8H [facility] Rx#: [id number] Intake, IV Titration 300 Amount Dextrose 5%-0.9% NaCl 1, 200 000 ml @ 50 mls/hr IV . Q20H [facility] Rx#:[id number] Potassium Chloride 10 meq 100 In Water For Injection 1 100ml.bag @ 100 mls/hr IVPB [facility] Rx#: [id number] Oral 0 0 Output: Urine 350 Estimated Blood Loss 10 Other: Voiding Method Indwelling Catheter Indwelling Catheter Indwelling Catheter - Labs CBC & Chem 7: 05/07/20 07:14 05/07/20 07:14 Labs: Abnormal Lab Results - Last 24 Hours (Table) 05/07/20 05/07/20 Range/Units 07:14 07:14 WBC 13.0 H (3.8-10.6) k/uL Neutrophils # 10.5 H (1.3-7.7) k/uL Chloride 109 H (98-107) mmol/L Carbon Dioxide 21 L (22-30) mmol/L BUN 25 H (7-17) mg/dL Creatinine 1.11 H (0.52-1.04) mg/dL Glucose 142 H (74-99) mg/dL Calcium 8.1 L (8.4-10.2) mg/dL Microbiology - Last 24 Hours (Table) 05/02/20 18:55 Blood Culture - Preliminary Blood No Growth after 96 hours 05/02/20 19:05 Blood Culture - Preliminary Blood No Growth after 96 hours Assessment and Plan Plan: assessment: 1. Acute kidney injury mostly prerenal improving with IV hydration. Creatinine 1.11 today. 2. Hypovolemic hyponatremia improed with IV hydration. 3. Small bowel obstruction status post exploratory laparotomy for lysis of adhesions morning. 4. Hypokalemia from poor intake. magnesium normal. Improved posterior plac ement. 5. Metabolic acidosis secondary to acute kidney injury and IV fluids. Better. Maintained on oral bicarbonate 6. UTI. Urine culture positive for group D enterococcus. Maintained on antibiotics. 7. Diastolic CHF with moderate aortic stenosis. 8. Benign hypertension. Controlled. Plan: Maintain IV fluids. Diet to be advanced surgery recommendations. Avoid nephrotoxins. Continue to monitor renal function and urine output.
[2020-05-07] MEDS: HYDROmorphone 0.5 MG/0.5 ML SYRINGE IVP PRN ×3 (13:27→23:30)
--- NOTE | 2020-05-07 16:58 | P.PN ---
Progress Note - Text Progress Note Date: 05/07/20 (Status post exploratory laparotomy, with the complete obstruction of jejunum secondary to adhesion.) This is a progress note dictated by Dr. Ross date of service 05/07/2020. Patient seen and evaluated post operative. Patient underwent exploratory laparotomy with lysis of adhesion which caused complete general vaginal obstruction. No bowel resection and no ostomy. Refer to the surgical note by Dr. Witt. On the floor patient seen and examined post surgery and discussed with her [id number], patient was alert awake with underlying dementia confused. Patient vital signs stable no evidence of hypotension. Her laboratory indicating improvement of renal function with his evaluation of acute kidney injury. Patient has underlying sepsis with the culture of the urine showed enterococcus faecalis group D covered with Zosyn. She had still cholelithiasis. On exam: Patient awake every alert with the underlying confusion, NG tube in place. Hernandez catheter in place HEENT: Head was normocephalic and atraumatic, patient nothing by mouth with NG tube in place. Significant secretion has been sucked out in the OR as well during the surgery. With the underlying hypovolemia as mentioned by Dr. Pearce the health specialist. She had electrolyte imbalance and supported. Neck was supple no JVD no thyromegaly no lymphadenopathy concussion. Heart was regular sinus rhythm. Abdomen was silent status post laparotomy with lysis of adhesion Extremities no edema and positive pulses Neuropsychiatry: Underlying dementia no CVA. Vital sign stable postoperative and continued on the IV antibiotic as well as further feeding with TPN or Intralipid that will be up to the surgeon. We'll continue monitoring and follow-up. We'll obtain BMP and magnesium as well as CBC with differential in a.m. Discussed with the [id number].
--- NOTE | 2020-05-07 17:06 | CDI ---
Documentation Clarification Form Date: 05/07/2020 05:02:03 PM From: Lena Blanchard RN, CCDS Admit Date: 05/02/2020 01:45:00 AM Patient Name: Kaia Serrano Visit Number: [id number] ATTENTION: The Clinical Documentation Specialists (CDI) and [facility] Coding Staff appreciate your assistance in clarifying documentation. Please respond to the clarification below the line at the bottom and electronically sign. The CDI & [facility] Coding staff will review the response and follow-up if needed. Please note: Queries are made part of the Legal Health Record. If you have any questions, please contact the author of this message via ITS. Dr. Nic Contreras CHF is documented in the Attending and Nephrology progress notes and requires and acuity. History/Risk Factors: STEVIE, SBO, Sepsis, hypotension, hx of HTN CVD, CKD stage 3 Clinical Indicators: 05/04 Attending Progress note: " Respiratory: bilateral: other (Mild volume overload as possible congestive heart failure)." 05/05 & 05/07 Nephrology progress Note: "Diastolic CHF with moderate aortic stenosis." 05/02 0002 Admission VS/Pulse OX: Temp 97.6, HR 65, RR 14, B/P 100/81, Spo2 90% RA 05/03 BNP: 5130 05/04 Echocardiogram Results: EF 55-60% Moderate Concentric LVH 05/04 Chest X Ray:"There is no gross heart failure." Treatment: Norvasc 5 mg PO BID Apresoline 25 mg PO TID Lopressor 2.5 mg IVP Q 6 hrs 05/02 1.5 L 0.9% NS IVF Bolus In your professional opinion, can you please clarify the acuity of the diastolic CHF if known? Acute Diastolic Heart Failure: Chronic Diastolic Heart Failure: Acute on Chronic Diastolic Heart Failure: Unable to Determine Other, please specify (Last Revision: November 2017) Volume overload, diastolic heart failure acute secondary to hydration with the acute kidney injury with the elevated BUN and creatinine MTDD
[2020-05-07] MEDS: INSULIN ASPART (NovoLOG) 100 UNIT/ML VIAL SQ SCH (18:25)
[2020-05-07] MEDS: HEPARIN SODIUM,PORCINE 5,000 UNIT/ML 1 ML VIAL SQ SCH ×2 (18:38→23:25)
[2020-05-07] MEDS: 1: MVI, ADULT NO.4 WITH VIT K 10 ML, TRACE (CONC-1ML/DOSE) 1 ML in AMINO ACID 4.25%-D10W IV SCH ×3 (19:15)
[2020-05-07] MEDS: FAT EMULSION 20% 250 ML in EMPTY BAG 1 BAG IV SCH (19:15)
--- NOTE | 2020-05-07 23:24 | PN ---
PROGRESS NOTE DATE OF SERVICE: 05/07/2020 REASON FOR FOLLOWUP: 1. Enterococcus urinary tract infection. 2. Small bowel ileus. INTERVAL HISTORY: The patient was taken to the OR this morning. The patient is status post laparotomy and small-bowel release with lysis of adhesions. The patient was seen post surgery; has been sleepy and lethargic, unable to provide any history. No vomiting or any diarrhea reported by the nursing staff. PHYSICAL EXAMINATION: Blood pressure 115/71 with a pulse of 72, temperature 98.4. She is 94% on room air. General description is an elderly female lying in bed in no distress. RESPIRATORY SYSTEM: Unlabored breathing. Clear to auscultation anteriorly. HEART: S1, S2. Regular rate and rhythm. ABDOMEN: Soft. LABS: Hemoglobin is 13.1, white count 13,000. Creatinine is 1.11. DIAGNOSTIC IMPRESSION AND PLAN: Patient with enterococcal urinary tract infection, also with small bowel ileus, failing medical therapy, requiring laparotomy and lysis of adhesions. Patient is covered with Zosyn; to continue while monitoring clinical course closely. MMODL / IJN: [id number] /
[2020-05-08 00:14] LABS: Glucose,Whole Blood 252 mg/dL (75-99)
[2020-05-08] MEDS: INSULIN ASPART (NovoLOG) 100 UNIT/ML VIAL SQ SCH ×4 (00:22→17:06)
[2020-05-08] MEDS: hydrALAZINE HCL 20 MG/ML 1 ML VIAL IVP SCH ×5 (00:24→23:18)
[2020-05-08] MEDS: HYDROmorphone 0.5 MG/0.5 ML SYRINGE IVP PRN ×3 (04:30→21:38)
[2020-05-08] MEDS: PIPERACILLIN-TAZOBACTAM 3.375 GM in SODIUM CHLORIDE 0.9% 100 ML IVPB SCH ×3 (05:17→21:08)
[2020-05-08] MEDS: DEXTROSE 5%-0.9% NACL 1,000 ML IV SCH (05:20)
[2020-05-08] MEDS: METOPROLOL TARTRATE 5 MG/5 ML VIAL IVP SCH ×4 (06:09→23:17)
[2020-05-08 06:38] LABS: Glucose,Whole Blood 210 mg/dL (75-99)
[2020-05-08] MEDS: amLODIPine 5 MG TAB PO SCH ×2 (08:15→20:18)
[2020-05-08] MEDS: LACTATED RINGERS 1,000 ML IV SCH (08:15)
[2020-05-08] MEDS: SODIUM BICARBONATE TAB 650 MG TAB PO SCH ×3 (08:15→20:18)
[2020-05-08] MEDS ORDERED: DIAZEPAM 5 MG/ML 2 ML INJ IVP PRN (08:53)
[2020-05-08 08:58] LABS: Albumin 2.3 g/dL (3.5-5.0); Magnesium 1.8 mg/dL (1.6-2.3); Potassium 3.7 mmol/L (3.5-5.1); Total Bilirubin 0.3 mg/dL (0.2-1.3); Total Protein 4.5 g/dL (6.3-8.2)
--- NOTE | 2020-05-08 09:04 | P.PN ---
Subjective Progress Note Date: 05/08/20 (Recovering from exploratory laparotomy,) Progress note date of service 05/08/2020. Patient seen and evaluated and she is awake intermittently agitated and pulling out her NG tube and IV line. We'll start her on Valium 2 mg every 4 hour when necessary for agitation. Deficit temporary or order until the bowel sounds his restarted. On exam she is conscious alert. NG tube in place with suction. Neck was supple no JVD no thyromegaly no lymphadenopathy. Chest is clear to auscultation and percussion Heart regular sinus rhythm. Monitored by the cardiology team. And she is on IV antihypertensive medication monitors was normal blood pressure 111/68. Abdomen silent no bowel sounds still expected post exploratory laparotomy. Extremities no edema, positive pulses, on heparin subcu for DVT. Neurologically: Patient was dementia and confusion and mild agitation. Assessment Patient is stable general condition and afebrile with temperature 98.3 and heart rate 73 bpm and respiratory rate 18 and blood pressure 111/68. Her oxygen saturation 96% on 2 L. Her renal function has improved and probability of the Hernandez catheter will be removed tomorrow Expecting the bowel movement within the next 48 hours. And at that time the NG tube will be. Patient on fat emulsion infusion peripherally. With the also high concentration of dextrose, she is on insulin to scale,. Plan: We'll continue the current treatment laboratory tomorrow for BMP and CBC. Continue blood sugar and the cartilage Continue monitoring the renal function. And continuing her medication for hypertension which is very well controlled at this time Objective - Vital Signs Vital signs: Vital Signs Temp 98.3 F 05/08/20 03:47 Pulse 73 05/08/20 03:47 Resp 18 05/08/20 03:47 BP 111/68 05/08/20 03:47 Pulse Ox 96 05/08/20 03:47 Intake & Output 05/07/20 05/08/20 05/08/20 18:59 06:59 18:59 Intake Total 950 1552 Output Total 560 235 Balance 390 1317 Weight 79 kg 78.5 kg Intake: IV 950 Invasive Line 3 50 Invasive Line 4 30 Invasive Line 5 20 Intake, IV Titration 1552 Amount Dextrose 5%-0.9% NaCl 1, 600 000 ml @ 50 mls/hr IV . Q20H [facility] Rx#:[id number] Fat Emulsion 20% 250 ml 252 In Empty Bag 1 bag @ 21 mls/hr IV DAILY@1800 [facility] Rx#:[id number] Mvi, Adult No.4 with Vit 600 K 10 ml Trace (Conc-1Ml/ Dose) 1 ml In Amino Acid 4.25%-D10w+Lytes*E* 1,000 ml @ 50 mls/hr IV .BY DURATION [facility] Rx#: [id number] Piperacillin-Tazobactam 3 100 .375 gm In Sodium Chloride 0.9% 100 ml @ 25 mls/hr IVPB Q8H [facility] Rx#: [id number] Oral 0 Output: Gastric Drainage 50 50 Urine 500 185 Uretheral (Hernandez) 185 Estimated Blood Loss 10 Other: Voiding Method Indwelling Catheter Indwelling Catheter - Labs CBC & Chem 7: 05/07/20 07:14 05/07/20 07:14 Labs: Abnormal Lab Results - Last 24 Hours (Table) 05/08/20 05/08/20 Range/Units 00:12 06:03 POC Glucose (mg/dL) 252 H 210 H (75-99) mg/dL Microbiology - Last 24 Hours (Table) 05/02/20 18:55 Blood Culture - Preliminary Blood No Growth after 120 hours 05/02/20 19:05 Blood Culture - Preliminary Blood No Growth after 120 hours
[2020-05-08 09:05] LABS: Basophils # (A) 0.1 k/uL (0-0.2); Basophils % (A) 0 %; Eosinophils # (A) 0.1 k/uL (0-0.7); Eosinophils % (A) 0 %; HCT 38.2 % (34.0-46.0); HGB 12.4 gm/dL (11.4-16.0); Lymphocytes # (A) 1.1 k/uL (1.0-4.8); Lymphocytes % (A) 4 %; MCH 30.6 pg (25.0-35.0); MCHC 32.6 g/dL (31.0-37.0); Mean Platelet Volume 7.5; Monocytes # (A) 0.8 k/uL (0-1.0); Monocytes % (A) 3 %; Neutrophils # (A) 27.8 k/uL (1.3-7.7); Neutrophils % (A) 93 %; Platelet Count 417 k/uL (150-450); RBC 4.06 m/uL (3.80-5.40); RDW 13.9 % (11.5-15.5)
[2020-05-08] MEDS: PANTOPRAZOLE 40 MG/10 ML VIAL IV SCH ×2 (09:07→21:07)
[2020-05-08] MEDS: HEPARIN SODIUM,PORCINE 5,000 UNIT/ML 1 ML VIAL SQ SCH ×3 (09:07→23:17)
[2020-05-08] MEDS ORDERED: Phosphorus Replacement Protoco 1 EACH MISC MISCELLANE PRN (10:24)
[2020-05-08] MEDS: MAGNESIUM SULFATE-D5W PMX 1 GM in DEXTROSE/WATER 1 100ML.BAG IVPB SCH ×2 (11:00→12:02)
--- NOTE | 2020-05-08 11:05 | P.PN ---
Subjective patient is seen in follow for acute kidney injury. Renal function significantly improved from admission. Patient confused this morning. Has an NG tube. Receiving TPN. Also maintained on normal saline. Underwent exploratory laparotomy with lysis of adhesions on May 07 for bowel obstruction. Vital signs are stable. General: The patient appeared well nourished and normally developed. NG tube noted. HEENT: Head exam is unremarkable. Neck is without jugular venous distension. LUNGS: Lungs are clear to auscultation and percussion. Breath sounds decreased. HEART: Rate and Rhythm are regular. ABDOMEN: Surgical abdomen. EXTREMITITES: No clubbing, cyanosis, or edema. Objective - Vital Signs Vital signs: Vital Signs Temp 98.3 F 05/08/20 09:03 Pulse 73 05/08/20 09:03 Resp 16 05/08/20 09:15 BP 137/62 05/08/20 09:03 Pulse Ox 96 05/08/20 09:15 Intake & Output 05/07/20 05/08/20 05/08/20 18:59 06:59 18:59 Intake Total 950 1552 20 Output Total 560 235 Balance 390 1317 20 Weight 79 kg 78.5 kg Intake: IV 950 20 Invasive Line 3 50 10 Invasive Line 4 30 Invasive Line 5 20 10 Intake, IV Titration 1552 Amount Dextrose 5%-0.9% NaCl 1, 600 000 ml @ 50 mls/hr IV . Q20H [facility] Rx#:[id number] Fat Emulsion 20% 250 ml 252 In Empty Bag 1 bag @ 21 mls/hr IV DAILY@1800 [facility] Rx#:[id number] Mvi, Adult No.4 with Vit 600 K 10 ml Trace (Conc-1Ml/ Dose) 1 ml In Amino Acid 4.25%-D10w+Lytes*E* 1,000 ml @ 50 mls/hr IV .BY DURATION [facility] Rx#: [id number] Piperacillin-Tazobactam 3 100 .375 gm In Sodium Chloride 0.9% 100 ml @ 25 mls/hr IVPB Q8H [facility] Rx#: [id number] Oral 0 Output: Gastric Drainage 50 50 Urine 500 185 Uretheral (Hernandez) 185 Estimated Blood Loss 10 Other: Voiding Method Indwelling Catheter Indwelling Catheter Indwelling Catheter - Labs CBC & Chem 7: 05/08/20 08:12 05/08/20 08:12 Labs: Abnormal Lab Results - Last 24 Hours (Table) 05/08/20 05/08/20 05/08/20 Range/Units 00:12 06:03 08:12 WBC (3.8-10.6) k/uL Neutrophils # (1.3-7.7) k/uL Chloride 110 H (98-107) mmol/L BUN 29 H (7-17) mg/dL Creatinine 1.13 H (0.52-1.04) mg/dL Glucose 192 H (74-99) mg/dL POC Glucose (mg/dL) 252 H 210 H (75-99) mg/dL Calcium 8.0 L (8.4-10.2) mg/dL Phosphorus 2.0 L (2.5-4.5) mg/dL Total Protein 4.5 L (6.3-8.2) g/dL Albumin 2.3 L (3.5-5.0) g/dL 05/08/20 Range/Units 08:12 WBC 30.0 H (3.8-10.6) k/uL Neutrophils # 27.8 H (1.3-7.7) k/uL Chloride (98-107) mmol/L BUN (7-17) mg/dL Creatinine (0.52-1.04) mg/dL Glucose (74-99) mg/dL POC Glucose (mg/dL) (75-99) mg/dL Calcium (8.4-10.2) mg/dL Phosphorus (2.5-4.5) mg/dL Total Protein (6.3-8.2) g/dL Albumin (3.5-5.0) g/dL Microbiology - Last 24 Hours (Table) 05/02/20 18:55 Blood Culture - Preliminary Blood No Growth after 120 hours 05/02/20 19:05 Blood Culture - Preliminary Blood No Growth after 120 hours Assessment and Plan Plan: assessment: 1. Acute kidney injury mostly prerenal improving with IV hydration. Creatinine 1.13 today. 2. Hypovolemic hyponatremia improed with IV hydration. 3. Small bowel obstruction status post exploratory laparotomy for lysis of adhesions on May 07. 4. Hypokalemia from poor intake. magnesium normal. Improved post replacement. 5. Metabolic acidosis secondary to acute kidney injury and IV fluids. Better. Maintained on oral bicarbonate 6. UTI. Urine culture positive for group D enterococcus. Maintained on antibiotics. 7. Diastolic CHF with moderate aortic stenosis. 8. Benign hypertension. Controlled. 9. Hypophosphatemia from poor intake. Plan: discontinue normal saline. Maintain TPN per surgery recommendations. Avoid nephrotoxins. Continue to monitor renal function and urine output. replace phosphorus.
[2020-05-08] MEDS: POTASSIUM PHOSPHATE 10 MMOL in SODIUM CHLORIDE 0.9% 250 ML IV SCH ×2 (12:02→14:37)
[2020-05-08] MEDS: 1: MVI, ADULT NO.4 WITH VIT K 10 ML, TRACE (CONC-1ML/DOSE) 1 ML in AMINO ACID 4.25%-D10W IV SCH ×3 (12:04)
[2020-05-08 12:06] LABS: Glucose,Whole Blood 203 mg/dL (75-99)
[2020-05-08] MEDS: ACETAMINOPHEN IV (For NPO) 1,000 MG in EMPTY BAG 1 BAG IVPB SCH ×2 (13:15→18:52)
--- NOTE | 2020-05-08 14:32 | P.PN ---
Subjective Progress Note Date: 05/08/20 This is a pleasant 85-year-old female with history of dementia, who initially presented to the hospital with abdominal discomfort and was found to have a small bowel obstruction. She was taken to the operating room yesterday where she underwent exploratory laparotomy with lysis of adhesions. Blood pressure 112/60 with a heart rate in the 60s, 95% on 40% Ventimask. At the time of my examination today she is quite confused. Has an NG tube in place. White blood cell count 30.0, hemoglobin 12.4, platelet count 417. Sodium 140, potassium 3.7, BUN 29, creatinine 1.1. Magnesium 1.8. Objective - Vital Signs Vital signs: Vital Signs Temp 98.4 F 05/08/20 11:04 Pulse 73 05/08/20 12:33 Resp 14 05/08/20 12:33 BP 112/57 05/08/20 12:33 Pulse Ox 95 05/08/20 12:33 Intake & Output 05/07/20 05/08/20 05/08/20 18:59 06:59 18:59 Intake Total 950 1552 20 Output Total 560 235 Balance 390 1317 20 Weight 79 kg 78.5 kg 78.5 kg Intake: IV 950 20 Invasive Line 3 50 10 Invasive Line 4 30 Invasive Line 5 20 10 Intake, IV Titration 1552 Amount Dextrose 5%-0.9% NaCl 1, 600 000 ml @ 50 mls/hr IV . Q20H [facility] Rx#:[id number] Fat Emulsion 20% 250 ml 252 In Empty Bag 1 bag @ 21 mls/hr IV DAILY@1800 [facility] Rx#:[id number] Mvi, Adult No.4 with Vit 600 K 10 ml Trace (Conc-1Ml/ Dose) 1 ml In Amino Acid 4.25%-D10w+Lytes*E* 1,000 ml @ 50 mls/hr IV .BY DURATION [facility] Rx#: [id number] Piperacillin-Tazobactam 3 100 .375 gm In Sodium Chloride 0.9% 100 ml @ 25 mls/hr IVPB Q8H [facility] Rx#: [id number] Oral 0 0 Output: Gastric Drainage 50 50 Urine 500 185 Uretheral (Hernandez) 185 Estimated Blood Loss 10 Other: Voiding Method Indwelling Catheter Indwelling Catheter Indwelling Catheter - Exam PHYSICAL EXAMINATION: GENERAL: 85-year-old female in no acute distress at the time of my examination HEENT: Head is atraumatic, normocephalic. Pupils equal, round. Sclera anicteric. Conjunctiva are clear. Mucous membranes of the mouth are moist. Neck is supple. NG tube in place. There is no elevated jugular venous pressure. No carotid bruit is heard. HEART EXAMINATION: Heart S1, S2 systolic murmur heard . CHEST EXAMINATION: Lungs reveal bilateral crackles ABDOMEN: Soft, nontender. Bowel sounds are heard. No organomegaly noted. EXTREMITIES: 2+ peripheral pulses with trace evidence of peripheral edema, venodynes in place. NEUROLOGIC patient is awake, alert and oriented X3 . - Labs CBC & Chem 7: 05/08/20 08:12 05/08/20 08:12 Labs: Abnormal Lab Results - Last 24 Hours (Table) 05/08/20 05/08/20 05/08/20 Range/Units 00:12 06:03 08:12 WBC (3.8-10.6) k/uL Neutrophils # (1.3-7.7) k/uL Chloride 110 H (98-107) mmol/L BUN 29 H (7-17) mg/dL Creatinine 1.13 H (0.52-1.04) mg/dL Glucose 192 H (74-99) mg/dL POC Glucose (mg/dL) 252 H 210 H (75-99) mg/dL Calcium 8.0 L (8.4-10.2) mg/dL Phosphorus 2.0 L (2.5-4.5) mg/dL Total Protein 4.5 L (6.3-8.2) g/dL Albumin 2.3 L (3.5-5.0) g/dL 05/08/20 05/08/20 Range/Units 08:12 12:04 WBC 30.0 H (3.8-10.6) k/uL Neutrophils # 27.8 H (1.3-7.7) k/uL Chloride (98-107) mmol/L BUN (7-17) mg/dL Creatinine (0.52-1.04) mg/dL Glucose (74-99) mg/dL POC Glucose (mg/dL) 203 H (75-99) mg/dL Calcium (8.4-10.2) mg/dL Phosphorus (2.5-4.5) mg/dL Total Protein (6.3-8.2) g/dL Albumin (3.5-5.0) g/dL Microbiology - Last 24 Hours (Table) 05/02/20 18:55 Blood Culture - Preliminary Blood No Growth after 120 hours 05/02/20 19:05 Blood Culture - Preliminary Blood No Growth after 120 hours Assessment and Plan Plan: Assessment #1 small bowel obstruction status post laparotomy with lysis of adhesions #2 underlying dementia #3 mildly abnormal troponin, not suggestive of acute coronary syndrome #4 dementia Plan From cardiology's perspective, we'll recommend to continue IV Lopressor as the patient is still nothing by mouth. Once the patient is able to take oral medications we will switch her over to oral. DNP note has been reviewed, I agree with a documented findings and plan of care. Patient was seen and examined.
--- NOTE | 2020-05-08 14:35 | PN ---
PROGRESS NOTE DATE OF SERVICE: 05/08/2020 REASON FOR FOLLOWUP: 1. Enterococcus urinary tract infection. 2. Leukocytosis. INTERVAL HISTORY: The patient is currently afebrile. Patient is slightly more awake and alert today. Remains to be pleasantly confused and in restraints. No vomiting has been reported by nursing staff or interval change. On admission, patient has no known history. PHYSICAL EXAMINATION: Blood pressure 112/57, pulse of 73, temperature 98.4. She is 95% on Ventimask. General description is an elderly female, lying in bed in no distress. RESPIRATORY SYSTEM: Unlabored breathing with decreased breath sounds at bases. No wheeze. HEART: S1, S2. Regular rate and rhythm. ABDOMEN: Soft. No tenderness. Mild tenderness, no rigidity. LABS: Hemoglobin [place] 12.4[place] [address], BUN of 29, creatinine 1.13. DIAGNOSTIC IMPRESSION/PLAN: 1. Patient with enterococcus urinary tract infection also with small bowel ileus respond to the medical therapy, status post surgery, now with significant jump in white count. We will repeat cultures, repeat a CBC and chest x-ray and adjust antibiotic further. 2. Clinical response and recent investigation. Continue supportive care. MMODL / IJN: [id number] /
--- NOTE | 2020-05-08 15:37 | P.PN ---
Subjective Progress Note Date: 05/08/20 Principal diagnosis: Small bowel obstruction Patient remains confused. She pulled out her nasogastric tube this afternoon. He was having mild pain. Nasogastric tube bilious prior to removal. No flatus or bowel movement. Patient is afebrile with stable vital signs. White blood cell count 30. Objective - Vital Signs Vital signs: Vital Signs Temp 98.4 F 05/08/20 11:04 Pulse 73 05/08/20 12:33 Resp 14 05/08/20 13:15 BP 112/57 05/08/20 12:33 Pulse Ox 95 05/08/20 12:33 Intake & Output 05/07/20 05/08/20 05/08/20 18:59 06:59 18:59 Intake Total 950 1552 1604 Output Total 560 235 Balance 390 1317 1604 Weight 79 kg 78.5 kg 78.5 kg Intake: IV 950 1604 ACETAMINOPHEN IV (For NPO 100 ) 1,000 mg In Empty Bag 1 bag @ 400 mls/hr IVPB Q6H [facility] Rx#:[id number] Amino Acid 4.25%-D10w+ 664 Lytes*E* 1,000 ml @ 83 mls/hr IV .BY DURATION [facility] Rx#:[id number] Invasive Line 3 50 20 Invasive Line 4 30 Invasive Line 5 20 20 Magnesium Sulfate-D5w Pmx 200 1 gm In Dextrose/Water 1 100ml.bag @ 100 mls/hr IVPB Q1H [facility] Rx#: [id number] Piperacillin-Tazobactam 3 100 .375 gm In Sodium Chloride 0.9% 100 ml @ 25 mls/hr IVPB Q8H [facility] Rx#: [id number] Potassium Phosphate 10 500 mmol In Sodium Chloride 0 .9% 250 ml @ 125 mls/hr IV Q2H [facility] Rx#:[id number] Intake, IV Titration 1552 Amount Dextrose 5%-0.9% NaCl 1, 600 000 ml @ 50 mls/hr IV . Q20H [facility] Rx#:[id number] Fat Emulsion 20% 250 ml 252 In Empty Bag 1 bag @ 21 mls/hr IV DAILY@1800 [facility] Rx#:[id number] Mvi, Adult No.4 with Vit 600 K 10 ml Trace (Conc-1Ml/ Dose) 1 ml In Amino Acid 4.25%-D10w+Lytes*E* 1,000 ml @ 50 mls/hr IV .BY DURATION [facility] Rx#: [id number] Piperacillin-Tazobactam 3 100 .375 gm In Sodium Chloride 0.9% 100 ml @ 25 mls/hr IVPB Q8H [facility] Rx#: [id number] Oral 0 0 Output: Gastric Drainage 50 50 Urine 500 185 Uretheral (Hernandez) 185 Estimated Blood Loss 10 Other: Voiding Method Indwelling Catheter Indwelling Catheter Indwelling Catheter - Exam Abdomen: Soft, nondistended, dressing clean and dry, mild tenderness - Labs CBC & Chem 7: 05/08/20 08:12 05/08/20 08:12 Labs: Abnormal Lab Results - Last 24 Hours (Table) 05/08/20 05/08/20 05/08/20 Range/Units 00:12 06:03 08:12 WBC (3.8-10.6) k/uL Neutrophils # (1.3-7.7) k/uL Chloride 110 H (98-107) mmol/L BUN 29 H (7-17) mg/dL Creatinine 1.13 H (0.52-1.04) mg/dL Glucose 192 H (74-99) mg/dL POC Glucose (mg/dL) 252 H 210 H (75-99) mg/dL Calcium 8.0 L (8.4-10.2) mg/dL Phosphorus 2.0 L (2.5-4.5) mg/dL Total Protein 4.5 L (6.3-8.2) g/dL Albumin 2.3 L (3.5-5.0) g/dL 05/08/20 05/08/20 Range/Units 08:12 12:04 WBC 30.0 H (3.8-10.6) k/uL Neutrophils # 27.8 H (1.3-7.7) k/uL Chloride (98-107) mmol/L BUN (7-17) mg/dL Creatinine (0.52-1.04) mg/dL Glucose (74-99) mg/dL POC Glucose (mg/dL) 203 H (75-99) mg/dL Calcium (8.4-10.2) mg/dL Phosphorus (2.5-4.5) mg/dL Total Protein (6.3-8.2) g/dL Albumin (3.5-5.0) g/dL Microbiology - Last 24 Hours (Table) 05/02/20 18:55 Blood Culture - Preliminary Blood No Growth after 120 hours 05/02/20 19:05 Blood Culture - Preliminary Blood No Growth after 120 hours Assessment and Plan (1) Small bowel obstruction Narrative/Plan: Patient with very difficult nasogastric tube placement. Will hold off on replacement and less nausea or vomiting develop. Keep nothing by mouth. Co ntinue analgesics. Current Visit: Yes Status: Acute Code(s): K56.609 - UNSP INTESTNL OBST, UNSP TO PARTIAL VERSUS COMPLETE OBST SNOMED Code(s): 238587482
[2020-05-08] MEDS: FAT EMULSION 20% 250 ML in EMPTY BAG 1 BAG IV SCH (17:04)
[2020-05-08 17:09] LABS: Glucose,Whole Blood 194 mg/dL (75-99)
[2020-05-09 00:06] LABS: Glucose,Whole Blood 175 mg/dL (75-99)
[2020-05-09] MEDS: INSULIN ASPART (NovoLOG) 100 UNIT/ML VIAL SQ SCH ×4 (00:47→17:54)
[2020-05-09] MEDS: 1: MVI, ADULT NO.4 WITH VIT K 10 ML, TRACE (CONC-1ML/DOSE) 1 ML in AMINO ACID 4.25%-D10W IV SCH ×6 (00:47→15:08)
[2020-05-09] MEDS: ACETAMINOPHEN IV (For NPO) 1,000 MG in EMPTY BAG 1 BAG IVPB SCH ×2 (00:49→06:08)
[2020-05-09] MEDS: METOPROLOL TARTRATE 5 MG/5 ML VIAL IVP SCH ×3 (06:07→17:42)
[2020-05-09] MEDS: hydrALAZINE HCL 20 MG/ML 1 ML VIAL IVP SCH ×3 (06:07→17:42)
[2020-05-09] MEDS: PIPERACILLIN-TAZOBACTAM 3.375 GM in SODIUM CHLORIDE 0.9% 100 ML IVPB SCH ×3 (06:08→22:14)
[2020-05-09 06:19] LABS: Glucose,Whole Blood 86 mg/dL (75-99)
[2020-05-09 07:39] LABS: Albumin 2.2 g/dL (3.5-5.0); Calcium 7.7 mg/dL (8.4-10.2); Total Bilirubin 0.7 mg/dL (0.2-1.3); Total Protein 4.6 g/dL (6.3-8.2)
[2020-05-09 07:44] LABS: Phosphorus 3.2 mg/dL (2.5-4.5); Potassium 4.6 mmol/L (3.5-5.1)
[2020-05-09 08:14] LABS: Basophils # (A) 0.1 k/uL (0-0.2); Basophils % (A) 0 %; Eosinophils # (A) 0.5 k/uL (0-0.7); Eosinophils % (A) 2 %; HCT 35.8 % (34.0-46.0); HGB 11.5 gm/dL (11.4-16.0); Lymphocytes # (A) 1.4 k/uL (1.0-4.8); Lymphocytes % (A) 5 %; MCH 30.1 pg (25.0-35.0); MCHC 32.2 g/dL (31.0-37.0); MCV 93.4 fL (80.0-100.0); Mean Platelet Volume 7.8; Monocytes # (A) 0.9 k/uL (0-1.0); Monocytes % (A) 3 %; Neutrophils # (A) 24.9 k/uL (1.3-7.7); Neutrophils % (A) 89 %; Platelet Count 383 k/uL (150-450); RBC 3.83 m/uL (3.80-5.40); RDW 14.1 % (11.5-15.5); WBC 28.1 k/uL (3.8-10.6)
[2020-05-09] MEDS: amLODIPine 5 MG TAB PO SCH ×2 (09:13→20:35)
[2020-05-09] MEDS: LACTATED RINGERS 1,000 ML IV SCH (09:13)
[2020-05-09] MEDS: SODIUM BICARBONATE TAB 650 MG TAB PO SCH ×4 (09:13→22:10)
[2020-05-09] MEDS: PANTOPRAZOLE 40 MG/10 ML VIAL IV SCH ×2 (09:14→20:24)
[2020-05-09] MEDS: HEPARIN SODIUM,PORCINE 5,000 UNIT/ML 1 ML VIAL SQ SCH ×2 (09:15→16:03)
--- NOTE | 2020-05-09 10:27 | P.PN ---
Subjective Progress Note Date: 05/09/20 Principal diagnosis: This is a 85-year-old female followed for acute kidney injury, electrolyte disturbances. She was admitted with history of GI bleed wasn't depletion change in mental status with decreased level of responsiveness. She was diagnosis small bowel obstruction and had an NG tube placed. He also has urine culture positive for group B enterococcus. She was treated with normal saline initially and then she has been on IV TPN. She pulls her NG tube out because of confusion This morning on examination she is able to answer questions and follow commands she does report from Hospital but is unable to say what year this is Objective - Vital Signs Vital signs: Vital Signs Temp 97.6 F 05/09/20 07:30 Pulse 72 05/09/20 07:30 Resp 18 05/09/20 07:30 BP 113/56 05/09/20 07:30 Pulse Ox 94 L 05/09/20 07:30 Intake & Output 05/08/20 05/09/20 05/09/20 18:59 06:59 18:59 Intake Total 1624 300 10 Output Total 250 400 Balance 1374 -100 10 Weight 78.5 kg 107.5 kg Intake: IV 1624 10 ACETAMINOPHEN IV (For NPO 100 ) 1,000 mg In Empty Bag 1 bag @ 400 mls/hr IVPB Q6H [facility] Rx#:[id number] Amino Acid 4.25%-D10w+ 664 Lytes*E* 1,000 ml @ 83 mls/hr IV .BY DURATION [facility] Rx#:[id number] Invasive Line 3 30 Invasive Line 5 30 10 Magnesium Sulfate-D5w Pmx 200 1 gm In Dextrose/Water 1 100ml.bag @ 100 mls/hr IVPB Q1H [facility] Rx#: [id number] Piperacillin-Tazobactam 3 100 .375 gm In Sodium Chloride 0.9% 100 ml @ 25 mls/hr IVPB Q8H [facility] Rx#: [id number] Potassium Phosphate 10 500 mmol In Sodium Chloride 0 .9% 250 ml @ 125 mls/hr IV Q2H [facility] Rx#:[id number] Intake, IV Titration 300 Amount ACETAMINOPHEN IV (For NPO 200 ) 1,000 mg In Empty Bag 1 bag @ 400 mls/hr IVPB Q6H [facility] Rx#:[id number] Piperacillin-Tazobactam 3 100 .375 gm In Sodium Chloride 0.9% 100 ml @ 25 mls/hr IVPB Q8H [facility] Rx#: [id number] Oral 0 0 Output: Urine 250 400 Uretheral (Hernandez) 400 Other: Voiding Method Indwelling Catheter Indwelling Catheter On exam she is awake alert oriented to place only HEENT exam no JVP neck is supple no facial asymmetry Lungs are clear to auscultation fair air entry bilaterally Heart sounds unremarkable for any murmur rub gallop Abdomen soft nondistended Extremity exam was no edema Neurologically slightly - Labs CBC & Chem 7: 05/09/20 07:34 05/09/20 06:54 Labs: Abnormal Lab Results - Last 24 Hours (Table) 05/08/20 05/08/20 05/08/20 Range/Units 08:12 12:04 17:04 WBC 30.0 H (3.8-10.6) k/uL Neutrophils # 27.8 H (1.3-7.7) k/uL Sodium (137-145) mmol/L Chloride (98-107) mmol/L Carbon Dioxide (22-30) mmol/L BUN (7-17) mg/dL POC Glucose (mg/dL) 203 H 194 H (75-99) mg/dL Calcium (8.4-10.2) mg/dL Total Protein (6.3-8.2) g/dL Albumin (3.5-5.0) g/dL 05/09/20 05/09/20 05/09/20 Range/Units 00:04 06:54 07:34 WBC 28.1 H (3.8-10.6) k/uL Neutrophils # 24.9 H (1.3-7.7) k/uL Sodium 136 L (137-145) mmol/L Chloride 114 H (98-107) mmol/L Carbon Dioxide 18 L (22-30) mmol/L BUN 33 H (7-17) mg/dL POC Glucose (mg/dL) 175 H (75-99) mg/dL Calcium 7.7 L (8.4-10.2) mg/dL Total Protein 4.6 L (6.3-8.2) g/dL Albumin 2.2 L (3.5-5.0) g/dL Microbiology - Last 24 Hours (Table) 05/02/20 18:55 Blood Culture - Final Blood No Growth after 144 hours 05/02/20 19:05 Blood Culture - Final Blood No Growth after 144 hours Assessment and Plan Assessment: Impression 1. Acute kidney injury secondary to prerenal from volume depletion, improved with hydration 2. Mild degree of non-gap acidosis from TPN 3. Small bowel obstruction, X status post exploratory laparotomy with lysis of adhesions dated 05/07/2020 4. dictation History of dementia 5. Enterococcus faecalis UTI Recommendation 1. Because of the non-gap acidosis resolved suggest increasing the acetate in the TPN by about 30 mEq 2. Add sodium bicarbonate 650 4 times a day
--- NOTE | 2020-05-09 10:30 | P.PN ---
Subjective Progress Note Date: 05/09/20 Principal diagnosis: Small bowel obstruction Patient doing well today. Remains confused. No significant pain. No vomiting. Nasogastric tube was removed accidentally a straight. White blood cell count remains elevated at 28. Objective - Vital Signs Vital signs: Vital Signs Temp 97.6 F 05/09/20 07:30 Pulse 72 05/09/20 07:30 Resp 18 05/09/20 07:30 BP 113/56 05/09/20 07:30 Pulse Ox 94 L 05/09/20 07:30 Intake & Output 05/08/20 05/09/20 05/09/20 18:59 06:59 18:59 Intake Total 1624 300 10 Output Total 250 400 Balance 1374 -100 10 Weight 78.5 kg 107.5 kg Intake: IV 1624 10 ACETAMINOPHEN IV (For NPO 100 ) 1,000 mg In Empty Bag 1 bag @ 400 mls/hr IVPB Q6H [facility] Rx#:[id number] Amino Acid 4.25%-D10w+ 664 Lytes*E* 1,000 ml @ 83 mls/hr IV .BY DURATION [facility] Rx#:[id number] Invasive Line 3 30 Invasive Line 5 30 10 Magnesium Sulfate-D5w Pmx 200 1 gm In Dextrose/Water 1 100ml.bag @ 100 mls/hr IVPB Q1H [facility] Rx#: [id number] Piperacillin-Tazobactam 3 100 .375 gm In Sodium Chloride 0.9% 100 ml @ 25 mls/hr IVPB Q8H [facility] Rx#: [id number] Potassium Phosphate 10 500 mmol In Sodium Chloride 0 .9% 250 ml @ 125 mls/hr IV Q2H [facility] Rx#:[id number] Intake, IV Titration 300 Amount ACETAMINOPHEN IV (For NPO 200 ) 1,000 mg In Empty Bag 1 bag @ 400 mls/hr IVPB Q6H [facility] Rx#:[id number] Piperacillin-Tazobactam 3 100 .375 gm In Sodium Chloride 0.9% 100 ml @ 25 mls/hr IVPB Q8H [facility] Rx#: [id number] Oral 0 0 Output: Urine 250 400 Uretheral (Hernandez) 400 Other: Voiding Method Indwelling Catheter Indwelling Catheter Indwelling Catheter - Exam Abdomen: Soft, nondistended, incision clean and dry, mild incisional tenderness - Labs CBC & Chem 7: 05/09/20 07:34 05/09/20 06:54 Labs: Abnormal Lab Results - Last 24 Hours (Table) 05/08/20 05/08/20 05/09/20 Range/Units 12:04 17:04 00:04 WBC (3.8-10.6) k/uL Neutrophils # (1.3-7.7) k/uL Sodium (137-145) mmol/L Chloride (98-107) mmol/L Carbon Dioxide (22-30) mmol/L BUN (7-17) mg/dL POC Glucose (mg/dL) 203 H 194 H 175 H (75-99) mg/dL Calcium (8.4-10.2) mg/dL Total Protein (6.3-8.2) g/dL Albumin (3.5-5.0) g/dL 05/09/20 05/09/20 Range/Units 06:54 07:34 WBC 28.1 H (3.8-10.6) k/uL Neutrophils # 24.9 H (1.3-7.7) k/uL Sodium 136 L (137-145) mmol/L Chloride 114 H (98-107) mmol/L Carbon Dioxide 18 L (22-30) mmol/L BUN 33 H (7-17) mg/dL POC Glucose (mg/dL) (75-99) mg/dL Calcium 7.7 L (8.4-10.2) mg/dL Total Protein 4.6 L (6.3-8.2) g/dL Albumin 2.2 L (3.5-5.0) g/dL Microbiology - Last 24 Hours (Table) 05/02/20 18:55 Blood Culture - Final Blood No Growth after 144 hours 05/02/20 19:05 Blood Culture - Final Blood No Growth after 144 hours Assessment and Plan (1) Small bowel obstruction Narrative/Plan: Patient remains confused. Nasogastric tube was unfortunately removed by the patient. Keep nothing by mouth for now. Monitor for bowel function. Increase activity. Current Visit: Yes Status: Acute Code(s): K56.609 - UNSP INTESTNL OBST, UNSP TO PARTIAL VERSUS COMPLETE OBST SNOMED Code(s): 405988966
[2020-05-09] MEDS ORDERED: LIDOCAINE 1% INJ 10MG/ML (20 ML MDV) ONE (10:39)
[2020-05-09] MEDS ORDERED: GLYCOPYRROLATE 0.2 MG/ML 2 ML VIAL ONE (10:39)
[2020-05-09] MEDS ORDERED: PROPOFOL 10 MG/ML 20 ML VIAL IV ONE (10:39)
[2020-05-09] MEDS ORDERED: PHENYLEPHRINE-0.9% NACL SYG 1 MG/10 ML SYRINGE ONE (10:39)
[2020-05-09] MEDS ORDERED: ROCURONIUM 10 MG/ML (5 ML VIAL) IV ONE (10:39)
[2020-05-09] MEDS ORDERED: MIDAZOLAM 2 MG/2 ML VIAL ONE (10:39)
[2020-05-09] MEDS ORDERED: fentaNYL (PF) 50 MCG/ML 2 ML AMP ONE (10:39)
[2020-05-09] MEDS ORDERED: SUCCINYLCHOLINE CHLORIDE 100 MG/5 ML SYR IV ONE (10:39)
[2020-05-09] MEDS ORDERED: NEOSTIGMINE 1 MG/ML 10 ML VIAL ONE (10:39)
--- NOTE | 2020-05-09 11:18 | P.PN ---
Subjective Progress Note Date: 05/09/20 Principal diagnosis: Abnormal cardiac enzymes This is a very pleasant 85-year-old female patient who lives independently with underlying dementia the patient lost her recently presented to the hospital complaining of nausea and vomiting and mild abdominal discomfort. Silva bsequently the patient was diagnosed with what it seems to be small bowel obstruction. She was seen by the general surgery service who recommended a conservative approach and placing an NG tube. The patient was seen yesterday by the general surgery service. Also the patient was found to be slightly dehydrated and she was started on IV fluid. We consulted to see the patient for abnormal troponin. The troponin is very minimally elevated and seems to be flat across support. The patient does not recall having any symptoms of chest pain or chest discomfort nor shortness of breath no dizziness or lightheadedness. No sweating. No loss of consciousness or syncope. Overall she is somewhat poor historian. No underlying history of coronary artery disease and the patient stated that she never had any stents in her heart before. The EKG showed sinus rhythm with diffuse nonspecific ST and T wave abnormalities. Currently the patient is chest pain-free. The patient was seen today May 092019. She underwent an exploratory laboratory and release of adhesions. Currently she is nothing by mouth. He is hemodynamically stable and she is on metoprolol IV which we will continue those she is not nothing by mouth any more. Objective - Vital Signs Vital signs: Vital Signs Temp 97.6 F 05/09/20 07:30 Pulse 72 05/09/20 07:30 Resp 18 05/09/20 07:30 BP 113/56 05/09/20 07:30 Pulse Ox 94 L 05/09/20 07:30 Intake & Output 05/08/20 05/09/20 05/09/20 18:59 06:59 18:59 Intake Total 1624 300 10 Output Total 250 400 Balance 1374 -100 10 Weight 78.5 kg 107.5 kg Intake: IV 1624 10 ACETAMINOPHEN IV (For NPO 100 ) 1,000 mg In Empty Bag 1 bag @ 400 mls/hr IVPB Q6H [facility] Rx#:[id number] Amino Acid 4.25%-D10w+ 664 Lytes*E* 1,000 ml @ 83 mls/hr IV .BY DURATION [facility] Rx#:[id number] Invasive Line 3 30 Invasive Line 5 30 10 Magnesium Sulfate-D5w Pmx 200 1 gm In Dextrose/Water 1 100ml.bag @ 100 mls/hr IVPB Q1H [facility] Rx#: [id number] Piperacillin-Tazobactam 3 100 .375 gm In Sodium Chloride 0.9% 100 ml @ 25 mls/hr IVPB Q8H [facility] Rx#: [id number] Potassium Phosphate 10 500 mmol In Sodium Chloride 0 .9% 250 ml @ 125 mls/hr IV Q2H [facility] Rx#:[id number] Intake, IV Titration 300 Amount ACETAMINOPHEN IV (For NPO 200 ) 1,000 mg In Empty Bag 1 bag @ 400 mls/hr IVPB Q6H [facility] Rx#:[id number] Piperacillin-Tazobactam 3 100 .375 gm In Sodium Chloride 0.9% 100 ml @ 25 mls/hr IVPB Q8H [facility] Rx#: [id number] Oral 0 0 Output: Urine 250 400 Uretheral (Hernandez) 400 Other: Voiding Method Indwelling Catheter Indwelling Catheter Indwelling Catheter - Constitutional General appearance: Present: no acute distress - Respiratory Respiratory: bilateral: diminished - Cardiovascular Heart sounds: normal: S1, S2 - Labs CBC & Chem 7: 05/09/20 07:34 05/09/20 06:54 Labs: Abnormal Lab Results - Last 24 Hours (Table) 05/08/20 05/08/20 05/09/20 Range/Units 12:04 17:04 00:04 WBC (3.8-10.6) k/uL Neutrophils # (1.3-7.7) k/uL Sodium (137-145) mmol/L Chloride (98-107) mmol/L Carbon Dioxide (22-30) mmol/L BUN (7-17) mg/dL POC Glucose (mg/dL) 203 H 194 H 175 H (75-99) mg/dL Calcium (8.4-10.2) mg/dL Total Protein (6.3-8.2) g/dL Albumin (3.5-5.0) g/dL 05/09/20 05/09/20 Range/Units 06:54 07:34 WBC 28.1 H (3.8-10.6) k/uL Neutrophils # 24.9 H (1.3-7.7) k/uL Sodium 136 L (137-145) mmol/L Chloride 114 H (98-107) mmol/L Carbon Dioxide 18 L (22-30) mmol/L BUN 33 H (7-17) mg/dL POC Glucose (mg/dL) (75-99) mg/dL Calcium 7.7 L (8.4-10.2) mg/dL Total Protein 4.6 L (6.3-8.2) g/dL Albumin 2.2 L (3.5-5.0) g/dL Microbiology - Last 24 Hours (Table) 05/02/20 18:55 Blood Culture - Final Blood No Growth after 144 hours 05/02/20 19:05 Blood Culture - Final Blood No Growth after 144 hours Assessment and Plan Assessment: Assessment #1 small bowel obstruction and status post surgery #2 underlying dementia #3 mildly abnormal troponin Plan #1 continue metoprolol IV #2 follow-up with the patient
[2020-05-09 11:59] LABS: Glucose,Whole Blood 97 mg/dL (75-99)
[2020-05-09] MEDS: HYDROmorphone 0.5 MG/0.5 ML SYRINGE IVP PRN ×2 (12:39→20:30)
--- NOTE | 2020-05-09 13:13 | P.PN ---
Subjective Progress Note Date: 05/09/20 This is dictation on the progress note date of service 05/09/2020. Dictation by Dr. Ross. Patient is awake alert, and G-tube accidentally removed. Dr. De La Fuente aware of the and she had no nausea or vomiting and a NG tube kept away as long as no sequelae. Status post adhesion lysis of the complete [place] will obstruction. She still have cholelithiasis. Patient feel better she had a thrombotic stocking. And she is alert she is able to recall my name, conscious. Vital sign 90 8.4F oral, pulse rate 80/m and regular sinus, respiratory rate 18, blood pressure was 113/56 however this morning down to 149/74, patient still nothing by mouth. And her medication for the pressure has been adjusted by Dr. Segura. On exam: Patient is conscious alert oriented 3 Head was normocephalic atraumatic pupils equal reactive. Oropharynx natural teeth. Neck was supple no JVD no thyromegaly no lymphadenopathy trachea midline. Chest she has rhonchi's and she is coughing and she has colored sputum and we will be obtaining sputum for culture and sensitivity and chest x-ray. Portable. Heart regular sinus rhythm compensated. Abdomen hypoactive bowel sounds status post laparotomy exploratory. With the lysis of adhesion. Extremities no edema and positive pulses. Assessment: Currently clinical improvement however the bowel sounds still hypoactive expected postoperative. She had leukocytosis with WBC 28.1 possibly post surgery versus aspiration with the cough and expectoration. Patient on antibiotic and followed by Dr. Borjas infectious disease. And we'll obtain a chest x-ray and sputum for culture and sensitivity and CBC in a.m. and BMP in a.m. Plan: Her renal function estimated GFR 59 for non-, blood sugar 89, Patient on TPN her liver enzymes is normal and the protein 4.6 and albumin 2.2 with the underlying moderate hypoproteinemia hypoalbuminemia due to being nothing by mouth for her acute small bowel obstruction and being nothing by mouth. Patient placed on peripheral TPN. During CBC with differential and BMP in a.m. Objective - Vital Signs Vital signs: Vital Signs Temp 98.4 F 05/09/20 12:33 Pulse 80 05/09/20 12:33 Resp 18 05/09/20 12:33 BP 149/74 05/09/20 12:33 Pulse Ox 94 L 05/09/20 12:33 Intake & Output 05/08/20 05/09/20 05/09/20 18:59 06:59 18:59 Intake Total 1624 300 40 Output Total 250 400 Balance 1374 -100 40 Weight 78.5 kg 107.5 kg Intake: IV 1624 40 ACETAMINOPHEN IV (For NPO 100 ) 1,000 mg In Empty Bag 1 bag @ 400 mls/hr IVPB Q6H [facility] Rx#:[id number] Amino Acid 4.25%-D10w+ 664 Lytes*E* 1,000 ml @ 83 mls/hr IV .BY DURATION [facility] Rx#:[id number] Invasive Line 3 30 Invasive Line 5 30 20 Invasive Line 6 20 Magnesium Sulfate-D5w Pmx 200 1 gm In Dextrose/Water 1 100ml.bag @ 100 mls/hr IVPB Q1H [facility] Rx#: [id number] Piperacillin-Tazobactam 3 100 .375 gm In Sodium Chloride 0.9% 100 ml @ 25 mls/hr IVPB Q8H [facility] Rx#: [id number] Potassium Phosphate 10 500 mmol In Sodium Chloride 0 .9% 250 ml @ 125 mls/hr IV Q2H [facility] Rx#:[id number] Intake, IV Titration 300 Amount ACETAMINOPHEN IV (For NPO 200 ) 1,000 mg In Empty Bag 1 bag @ 400 mls/hr IVPB Q6H [facility] Rx#:[id number] Piperacillin-Tazobactam 3 100 .375 gm In Sodium Chloride 0.9% 100 ml @ 25 mls/hr IVPB Q8H [facility] Rx#: [id number] Oral 0 0 Output: Urine 250 400 Uretheral (Hernandez) 400 Other: Voiding Method Indwelling Catheter Indwelling Catheter Indwelling Catheter - Labs CBC & Chem 7: 05/09/20 07:34 05/09/20 06:54 Labs: Abnormal Lab Results - Last 24 Hours (Table) 05/08/20 05/09/20 05/09/20 Range/Units 17:04 00:04 06:54 WBC (3.8-10.6) k/uL Neutrophils # (1.3-7.7) k/uL Sodium 136 L (137-145) mmol/L Chloride 114 H (98-107) mmol/L Carbon Dioxide 18 L (22-30) mmol/L BUN 33 H (7-17) mg/dL POC Glucose (mg/dL) 194 H 175 H (75-99) mg/dL Calcium 7.7 L (8.4-10.2) mg/dL Total Protein 4.6 L (6.3-8.2) g/dL Albumin 2.2 L (3.5-5.0) g/dL 05/09/20 Range/Units 07:34 WBC 28.1 H (3.8-10.6) k/uL Neutrophils # 24.9 H (1.3-7.7) k/uL Sodium (137-145) mmol/L Chloride (98-107) mmol/L Carbon Dioxide (22-30) mmol/L BUN (7-17) mg/dL POC Glucose (mg/dL) (75-99) mg/dL Calcium (8.4-10.2) mg/dL Total Protein (6.3-8.2) g/dL Albumin (3.5-5.0) g/dL Microbiology - Last 24 Hours (Table) 05/02/20 18:55 Blood Culture - Final Blood No Growth after 144 hours 05/02/20 19:05 Blood Culture - Final Blood No Growth after 144 hours
--- NOTE | 2020-05-09 16:11 | PN ---
PROGRESS NOTE DATE OF SERVICE: 05/09/2020. REASON FOR FOLLOWUP: 1. Enterococcus urinary tract infection. 2. Leukocytosis. INTERVAL HISTORY: Patient is currently afebrile. The patient is more awake and alert. She is breathing comfortably on room air. Denies having any chest pain or cough. No abdominal pain. any further. No vomiting or diarrhea reported by nursing staff. PHYSICAL EXAMINATION: Blood pressure 149/74, pulse 80, temperature 98.4. She is 94% on room air. General description is an elderly female lying in bed in no distress. Respiratory system: Unlabored breathing. Clear to auscultation anteriorly. Heart S1, S2. Regular rate and rhythm. Abdomen soft, nontender. LABS: Hemoglobin 11.5, white count 8.1, BUN of 33, creatinine 0.91. DIAGNOSTIC IMPRESSION AND PLAN: Patient with Enterococcus faecalis urinary tract infection in this patient who also did have small bowel ileus and did respond to the medical therapy status post laparotomy and lysis of adhesions. Patient did have significant elevated white count source which is more likely reactive as the patient white count showing a downward trend. Patient is currently covered with [employer] to continue and monitor clinical course closely. MMODL / IJN: [id number] /
--- NOTE | 2020-05-09 16:57 | XR ---
EXAMINATION TYPE: XR chest 1V portable DATE OF EXAM: 05/09/2020 COMPARISON: 05/06/2020 HISTORY: Pneumonia. Short of breath. TECHNIQUE: Single view FINDINGS: There is poor inspiration. There is pulmonary interstitial edema. There is contrast in the gastric fundus. There are chest leads. IMPRESSION: There is pulmonary interstitial edema that could relate to congestive heart failure. Insp iration decreased compared to last exam. Interstitial edema increased compared to last exam.
[2020-05-09 17:08] LABS: Glucose,Whole Blood 136 mg/dL (75-99)
[2020-05-09] MEDS: FAT EMULSION 20% 250 ML in EMPTY BAG 1 BAG IV SCH (17:42)
[2020-05-10] MEDS: METOPROLOL TARTRATE 5 MG/5 ML VIAL IVP SCH ×4 (00:58→17:50)
[2020-05-10] MEDS: hydrALAZINE HCL 20 MG/ML 1 ML VIAL IVP SCH ×4 (00:58→17:50)
[2020-05-10] MEDS: HEPARIN SODIUM,PORCINE 5,000 UNIT/ML 1 ML VIAL SQ SCH ×3 (00:58→17:50)
[2020-05-10] MEDS: INSULIN ASPART (NovoLOG) 100 UNIT/ML VIAL SQ SCH ×4 (00:59→17:48)
[2020-05-10 01:02] LABS: Glucose,Whole Blood 156 mg/dL (75-99)
[2020-05-10] MEDS: HYDROmorphone 0.5 MG/0.5 ML SYRINGE IVP PRN ×2 (01:50→13:04)
[2020-05-10] MEDS: 1: MVI, ADULT NO.4 WITH VIT K 10 ML, TRACE (CONC-1ML/DOSE) 1 ML in AMINO ACID 4.25%-D10W IV SCH ×6 (02:39→14:06)
[2020-05-10 06:15] LABS: Glucose,Whole Blood 188 mg/dL (75-99)
[2020-05-10] MEDS: PIPERACILLIN-TAZOBACTAM 3.375 GM in SODIUM CHLORIDE 0.9% 100 ML IVPB SCH ×3 (06:24→21:46)
[2020-05-10] MEDS: amLODIPine 5 MG TAB PO SCH ×2 (08:37→19:56)
[2020-05-10] MEDS: LACTATED RINGERS 1,000 ML IV SCH (08:37)
[2020-05-10] MEDS: SODIUM BICARBONATE TAB 650 MG TAB PO SCH ×4 (08:37→21:46)
[2020-05-10] MEDS: PANTOPRAZOLE 40 MG/10 ML VIAL IV SCH ×2 (08:38→19:56)
[2020-05-10 09:45] LABS: Albumin 2.2 g/dL (3.5-5.0); Calcium 7.7 mg/dL (8.4-10.2); Magnesium 1.9 mg/dL (1.6-2.3); Phosphorus 3.2 mg/dL (2.5-4.5); Potassium 4.2 mmol/L (3.5-5.1); Total Bilirubin 0.6 mg/dL (0.2-1.3); Total Protein 4.7 g/dL (6.3-8.2)
[2020-05-10 09:48] LABS: Basophils # (A) 0.1 k/uL (0-0.2); Basophils % (A) 0 %; Eosinophils # (A) 0.3 k/uL (0-0.7); Eosinophils % (A) 1 %; HCT 36.2 % (34.0-46.0); HGB 11.7 gm/dL (11.4-16.0); Lymphocytes # (A) 1.4 k/uL (1.0-4.8); Lymphocytes % (A) 6 %; MCH 30.6 pg (25.0-35.0); MCHC 32.4 g/dL (31.0-37.0); MCV 94.5 fL (80.0-100.0); Mean Platelet Volume 8.6; Monocytes # (A) 0.8 k/uL (0-1.0); Monocytes % (A) 3 %; Neutrophils # (A) 21.9 k/uL (1.3-7.7); Neutrophils % (A) 88 %; Platelet Count 448 k/uL (150-450); RBC 3.83 m/uL (3.80-5.40); RDW 14.4 % (11.5-15.5); WBC 24.9 k/uL (3.8-10.6)
--- NOTE | 2020-05-10 10:45 | P.PN ---
Subjective Progress Note Date: 05/10/20 Principal diagnosis: Small bowel obstruction Patient remains confused. She is alert however. Denies pain. Patient states she had a bowel movement. Objective - Vital Signs Vital signs: Vital Signs Temp 98.8 F 05/10/20 07:46 Pulse 84 05/10/20 07:46 Resp 16 05/10/20 07:52 BP 151/72 05/10/20 07:46 Pulse Ox 92 L 05/10/20 07:46 Intake & Output 05/09/20 05/10/20 05/10/20 18:59 06:59 18:59 Intake Total 1865 130 10 Output Total 350 1300 Balance 1515 -1170 10 Weight 107 kg Intake: IV 854 30 10 Invasive Line 5 40 30 10 Invasive Line 6 20 Invasive Line 7 30 Mvi, Adult No.4 with Vit 664 K 10 ml Trace (Conc-1Ml/ Dose) 1 ml In Amino Acid 4.25%-D10w+Lytes*E* 1,000 ml @ 83 mls/hr IV .BY DURATION [facility] Rx#: [id number] Piperacillin-Tazobactam 3 100 .375 gm In Sodium Chloride 0.9% 100 ml @ 25 mls/hr IVPB Q8H [facility] Rx#: [id number] Intake, IV Titration 1011 100 Amount Mvi, Adult No.4 with Vit 1011 K 10 ml Trace (Conc-1Ml/ Dose) 1 ml In Amino Acid 4.25%-D10w+Lytes*E* 1,000 ml @ 83 mls/hr IV .BY DURATION [facility] Rx#: [id number] Piperacillin-Tazobactam 3 100 .375 gm In Sodium Chloride 0.9% 100 ml @ 25 mls/hr IVPB Q8H [facility] Rx#: [id number] Oral 0 Output: Urine 350 1300 Other: Voiding Method Indwelling Catheter Indwelling Catheter Indwelling Catheter # Voids 1 # Bowel Movements 0 - Exam Abdomen: Soft, less distended, minimal tenderness, dressing clean and dry - Labs CBC & Chem 7: 05/10/20 08:28 05/10/20 08:28 Labs: Abnormal Lab Results - Last 24 Hours (Table) 05/09/20 05/10/20 05/10/20 Range/Units 16:52 00:57 06:03 WBC (3.8-10.6) k/uL Neutrophils # (1.3-7.7) k/uL Sodium (137-145) mmol/L Chloride (98-107) mmol/L BUN (7-17) mg/dL Glucose (74-99) mg/dL POC Glucose (mg/dL) 136 H 156 H 188 H (75-99) mg/dL Calcium (8.4-10.2) mg/dL Total Protein (6.3-8.2) g/dL Albumin (3.5-5.0) g/dL 05/10/20 05/10/20 Range/Units 08:28 08:28 WBC 24.9 H (3.8-10.6) k/uL Neutrophils # 21.9 H (1.3-7.7) k/uL Sodium 136 L (137-145) mmol/L Chloride 110 H (98-107) mmol/L BUN 34 H (7-17) mg/dL Glucose 160 H (74-99) mg/dL POC Glucose (mg/dL) (75-99) mg/dL Calcium 7.7 L (8.4-10.2) mg/dL Total Protein 4.7 L (6.3-8.2) g/dL Albumin 2.2 L (3.5-5.0) g/dL Assessment and Plan (1) Small bowel obstruction Narrative/Plan: Patient seems to be improving from an abdominal standpoint. We'll discuss with the nursing staff whether bowel function is present. If so begin clear liquids. Increase activity as tolerated. White blood cell count improving. Continue antibiotics. Current Visit: Yes Status: Acute Code(s): K56.609 - UNSP INTESTNL OBST, UNSP TO PARTIAL VERSUS COMPLETE OBST SNOMED Code(s): 877265965
--- NOTE | 2020-05-10 11:15 | P.PN ---
Subjective Progress Note Date: 05/10/20 (Recovering from post exploratory liver anatomy) This progress note date of service 05/10/2020. Patient seen evaluated she did not complain of any pain at this time, she had TPN peripherally. Conscious alert oriented much better mentation with the underlying dementia Alzheimer's type with waxing and waning. Temperature 98.8 exemplary. Her heart rate 84 bpm sinus respiratory rate 16 her blood pressure 151/72 and her pulse ox 92% on room air. Laboratories: WBC 24.9 with leukocytosis, with mainly neutrophilia feel 21.9. Her hemoglobin 11.7 and a hematocrit 36.2. Her platelet count 448. Sodium 136, potassium 4.2, chloride 110, carbon dioxide 22, anion gap is 4. BUN 34 and creatinine 0.88 and the the morning blood sugar was 61 by the lab however the POC indicating 160 was some discrepancy. Her POC has been monitored and covered with insulin to scale. Calcium 7.7, phosphorus 3.2 and total prot ein 4.7 and albumin 2.2. On the exam patient's conscious alert confused intermittently with the dementia. Pupil is equal reactive, no NG tube, oropharynx natural teeth. Neck was supple no JVD no thyromegaly no lymphadenopathy. Chest today clear to auscultation and percussion. She had a x-ray yesterday and did indicate interstitial edema possibility for the underlying IV fluid and being nothing by mouth Heart: Regular sinus rhythm and the medication has been adjusted by cardiology with the underlying hypertension with hypertensive heart disease. Abdomen: Still abdomen silent no passing gas or bowel movement yet hopefully expected by tomorrow. Extremities: No edema and positive pulses. Neuro psychiatry patient on her baseline. No agitation. Assessment: #1 status post exploratory laparotomy associated with complete small bowel obstruction of the distal discharge and on due to adhesions. #2 underlying cholelithiasis however nonsymptomatic with normal bilirubin and normal liver enzyme. 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 #4 dementia Alzheimer's type. #5 hypertension was hypertensive heart disease monitored by cardiology. Plan we will continue Hernandez catheter. Intake and output. Intermittent use of diuresis. Objective - Vital Signs Vital signs: Vital Signs Temp 98.8 F 05/10/20 07:46 Pulse 84 05/10/20 07:46 Resp 16 05/10/20 07:52 BP 151/72 05/10/20 07:46 Pulse Ox 92 L 05/10/20 07:46 Intake & Output 05/09/20 05/10/20 05/10/20 18:59 06:59 18:59 Intake Total 1865 130 10 Output Total 350 1300 Balance 1515 -1170 10 Weight 107 kg Intake: IV 854 30 10 Invasive Line 5 40 30 10 Invasive Line 6 20 Invasive Line 7 30 Mvi, Adult No.4 with Vit 664 K 10 ml Trace (Conc-1Ml/ Dose) 1 ml In Amino Acid 4.25%-D10w+Lytes*E* 1,000 ml @ 83 mls/hr IV .BY DURATION [facility] Rx#: [id number] Piperacillin-Tazobactam 3 100 .375 gm In Sodium Chloride 0.9% 100 ml @ 25 mls/hr IVPB Q8H [facility] Rx#: [id number] Intake, IV Titration 1011 100 Amount Mvi, Adult No.4 with Vit 1011 K 10 ml Trace (Conc-1Ml/ Dose) 1 ml In Amino Acid 4.25%-D10w+Lytes*E* 1,000 ml @ 83 mls/hr IV .BY DURATION [facility] Rx#: [id number] Piperacillin-Tazobactam 3 100 .375 gm In Sodium Chloride 0.9% 100 ml @ 25 mls/hr IVPB Q8H [facility] Rx#: [id number] Oral 0 Output: Urine 350 1300 Other: Voiding Method Indwelling Catheter Indwelling Catheter Indwelling Catheter # Voids 1 # Bowel Movements 0 - Labs CBC & Chem 7: 05/10/20 08:28 05/10/20 08:28 Labs: Abnormal Lab Results - Last 24 Hours (Table) 05/09/20 05/10/20 05/10/20 Range/Units 16:52 00:57 06:03 WBC (3.8-10.6) k/uL Neutrophils # (1.3-7.7) k/uL Sodium (137-145) mmol/L Chloride (98-107) mmol/L BUN (7-17) mg/dL Glucose (74-99) mg/dL POC Glucose (mg/dL) 136 H 156 H 188 H (75-99) mg/dL Calcium (8.4-10.2) mg/dL Total Protein (6.3-8.2) g/dL Albumin (3.5-5.0) g/dL 05/10/20 05/10/20 Range/Units 08:28 08:28 WBC 24.9 H (3.8-10.6) k/uL Neutrophils # 21.9 H (1.3-7.7) k/uL Sodium 136 L (137-145) mmol/L Chloride 110 H (98-107) mmol/L BUN 34 H (7-17) mg/dL Glucose 160 H (74-99) mg/dL POC Glucose (mg/dL) (75-99) mg/dL Calcium 7.7 L (8.4-10.2) mg/dL Total Protein 4.7 L (6.3-8.2) g/dL Albumin 2.2 L (3.5-5.0) g/dL
[2020-05-10] MEDS ORDERED: FUROSEMIDE 10 MG/ML 2 ML VIAL IV ONE (11:24)
--- NOTE | 2020-05-10 11:52 | P.PN ---
Subjective Progress Note Date: 05/10/20 Principal diagnosis: This is a 85-year-old female followed for acute kidney injury, electrolyte disturbances. She was admitted with history of GI bleed wasn't depletion change in mental status with decreased level of responsiveness. She was diagnosis small bowel obstruction and had an NG tube placed, subsequently underwent exploratory laparotomy with lysis of adhesions on 05/07/2020. She also has urine culture positive for group B enterococcus. She was treated with normal saline initially and then she has been on IV TPN. This morning she is able to answer some questions but confused. She is nothing by mouth She is on TPN Her creatinine is down to 0.8, bicarb is improved to 22 on acetate added TPN, cannot tolerate by mouth medication Objective - Vital Signs Vital signs: Vital Signs Temp 98.8 F 05/10/20 07:46 Pulse 84 05/10/20 07:46 Resp 16 05/10/20 07:52 BP 151/72 05/10/20 07:46 Pulse Ox 92 L 05/10/20 07:46 Intake & Output 05/09/20 05/10/20 05/10/20 18:59 06:59 18:59 Intake Total 1865 130 10 Output Total 350 1300 Balance 1515 -1170 10 Weight 107 kg Intake: IV 854 30 10 Invasive Line 5 40 30 10 Invasive Line 6 20 Invasive Line 7 30 Mvi, Adult No.4 with Vit 664 K 10 ml Trace (Conc-1Ml/ Dose) 1 ml In Amino Acid 4.25%-D10w+Lytes*E* 1,000 ml @ 83 mls/hr IV .BY DURATION [facility] Rx#: [id number] Piperacillin-Tazobactam 3 100 .375 gm In Sodium Chloride 0.9% 100 ml @ 25 mls/hr IVPB Q8H [facility] Rx#: [id number] Intake, IV Titration 1011 100 Amount Mvi, Adult No.4 with Vit 1011 K 10 ml Trace (Conc-1Ml/ Dose) 1 ml In Amino Acid 4.25%-D10w+Lytes*E* 1,000 ml @ 83 mls/hr IV .BY DURATION [facility] Rx#: [id number] Piperacillin-Tazobactam 3 100 .375 gm In Sodium Chloride 0.9% 100 ml @ 25 mls/hr IVPB Q8H [facility] Rx#: [id number] Oral 0 Output: Urine 350 1300 Other: Voiding Method Indwelling Catheter Indwelling Catheter Indwelling Catheter # Voids 1 # Bowel Movements 0 examination she is awake alert but disoriented HEENT exam no JVP neck is supple no facial asymmetry Lungs are clear to auscultation fair air entry bilaterally Heart sounds unremarkable no murmur rub gallop Abdomen soft some tenderness. Midline scar Extreme exam reveals no edema Logically awake alert but disoriented - Labs CBC & Chem 7: 05/10/20 08:28 05/10/20 08:28 Labs: Abnormal Lab Results - Last 24 Hours (Table) 05/09/20 05/10/20 05/10/20 Range/Units 16:52 00:57 06:03 WBC (3.8-10.6) k/uL Neutrophils # (1.3-7.7) k/uL Sodium (137-145) mmol/L Chloride (98-107) mmol/L BUN (7-17) mg/dL Glucose (74-99) mg/dL POC Glucose (mg/dL) 136 H 156 H 188 H (75-99) mg/dL Calcium (8.4-10.2) mg/dL Total Protein (6.3-8.2) g/dL Albumin (3.5-5.0) g/dL 05/10/20 05/10/20 Range/Units 08:28 08:28 WBC 24.9 H (3.8-10.6) k/uL Neutrophils # 21.9 H (1.3-7.7) k/uL Sodium 136 L (137-145) mmol/L Chloride 110 H (98-107) mmol/L BUN 34 H (7-17) mg/dL Glucose 160 H (74-99) mg/dL POC Glucose (mg/dL) (75-99) mg/dL Calcium 7.7 L (8.4-10.2) mg/dL Total Protein 4.7 L (6.3-8.2) g/dL Albumin 2.2 L (3.5-5.0) g/dL Assessment and Plan Assessment: Impression 1. Acute kidney injury secondary to prerenal from volume depletion, improved with hydration. Creatinine is down to 0.8 resolved 2. Mild degree of non-gap acidosis from TPN 3. Small bowel obstruction, X status post exploratory laparotomy with lysis of adhesions dated 05/07/2020 4. History of dementia 5. Enterococcus faecalis UTI Recommendation 1. maintain current acetate in the TPN 2. Okay just discontinue the oral bicarb as she is nothing by mouth We will sign off please call us if there is any further need
[2020-05-10 12:03] LABS: Glucose,Whole Blood 183 mg/dL (75-99)
--- NOTE | 2020-05-10 12:07 | P.PN ---
Subjective Progress Note Date: 05/10/20 Principal diagnosis: Abnormal cardiac enzymes This is a very pleasant 85-year-old female patient who lives independently with underlying dementia the patient lost her recently presented to the hospital complaining of nausea and vomiting and mild abdominal discomfort. Silva bsequently the patient was diagnosed with what it seems to be small bowel obstruction. She was seen by the general surgery service and subsequently she underwent surgery. Since the surgery she has been nothing by mouth. We consulted to see the patient for mildly abnormal troponin and without any significant ST or T-wave abnormalities on the EKG. We recommended conservative medical approach The patient was seen today May 102019. She denies any chest pain or chest discomfort but she continues to have abdominal discomfort. She continues to be nothing by mouth on currently she is on metoprolol IV scheduled. Hemodynamically she is a stable. From a cardiovascular standpoint overview, we will continue the current medical regimen and will follow-up with the patient on when necessary case. Objective - Vital Signs Vital signs: Vital Signs Temp 98.8 F 05/10/20 07:46 Pulse 84 05/10/20 07:46 Resp 16 05/10/20 07:52 BP 151/72 05/10/20 07:46 Pulse Ox 92 L 05/10/20 07:46 Intake & Output 05/09/20 05/10/20 05/10/20 18:59 06:59 18:59 Intake Total 1865 130 10 Output Total 350 1300 Balance 1515 -1170 10 Weight 107 kg Intake: IV 854 30 10 Invasive Line 5 40 30 10 Invasive Line 6 20 Invasive Line 7 30 Mvi, Adult No.4 with Vit 664 K 10 ml Trace (Conc-1Ml/ Dose) 1 ml In Amino Acid 4.25%-D10w+Lytes*E* 1,000 ml @ 83 mls/hr IV .BY DURATION [facility] Rx#: [id number] Piperacillin-Tazobactam 3 100 .375 gm In Sodium Chloride 0.9% 100 ml @ 25 mls/hr IVPB Q8H [facility] Rx#: [id number] Intake, IV Titration 1011 100 Amount Mvi, Adult No.4 with Vit 1011 K 10 ml Trace (Conc-1Ml/ Dose) 1 ml In Amino Acid 4.25%-D10w+Lytes*E* 1,000 ml @ 83 mls/hr IV .BY DURATION [facility] Rx#: [id number] Piperacillin-Tazobactam 3 100 .375 gm In Sodium Chloride 0.9% 100 ml @ 25 mls/hr IVPB Q8H [facility] Rx#: [id number] Oral 0 Output: Urine 350 1300 Other: Voiding Method Indwelling Catheter Indwelling Catheter Indwelling Catheter # Voids 1 # Bowel Movements 0 - Constitutional General appearance: Present: no acute distress - Respiratory Respiratory: bilateral: CTA - Cardiovascular Rhythm: regular Heart sounds: normal: S1, S2 - Labs CBC & Chem 7: 05/10/20 08:28 05/10/20 08:28 Labs: Abnormal Lab Results - Last 24 Hours (Table) 05/09/20 05/10/20 05/10/20 Range/Units 16:52 00:57 06:03 WBC (3.8-10.6) k/uL Neutrophils # (1.3-7.7) k/uL Sodium (137-145) mmol/L Chloride (98-107) mmol/L BUN (7-17) mg/dL Glucose (74-99) mg/dL POC Glucose (mg/dL) 136 H 156 H 188 H (75-99) mg/dL Calcium (8.4-10.2) mg/dL Total Protein (6.3-8.2) g/dL Albumin (3.5-5.0) g/dL 05/10/20 05/10/20 Range/Units 08:28 08:28 WBC 24.9 H (3.8-10.6) k/uL Neutrophils # 21.9 H (1.3-7.7) k/uL Sodium 136 L (137-145) mmol/L Chloride 110 H (98-107) mmol/L BUN 34 H (7-17) mg/dL Glucose 160 H (74-99) mg/dL POC Glucose (mg/dL) (75-99) mg/dL Calcium 7.7 L (8.4-10.2) mg/dL Total Protein 4.7 L (6.3-8.2) g/dL Albumin 2.2 L (3.5-5.0) g/dL Assessment and Plan Assessment: Assessment #1 small bowel obstruction and status post surgery #2 underlying dementia #3 mildly abnormal troponin Plan #1 continue metoprolol IV #2 follow-up with the patient on when necessary
[2020-05-10] MEDS ORDERED: bisacodyL 10 MG SUPP RECTAL STA (13:58)
[2020-05-10] MEDS: FAT EMULSION 20% 250 ML in EMPTY BAG 1 BAG IV SCH (14:13)
[2020-05-10 17:38] LABS: Glucose,Whole Blood 142 mg/dL (75-99)
[2020-05-10] MEDS: ONDANSETRON 4 MG/2 ML VIAL IVP PRN (21:47)
[2020-05-11 00:08] LABS: Glucose,Whole Blood 161 mg/dL (75-99)
[2020-05-11] MEDS: hydrALAZINE HCL 20 MG/ML 1 ML VIAL IVP SCH ×3 (00:45→11:38)
[2020-05-11] MEDS: INSULIN ASPART (NovoLOG) 100 UNIT/ML VIAL SQ SCH ×4 (00:45→16:39)
[2020-05-11] MEDS: METOPROLOL TARTRATE 5 MG/5 ML VIAL IVP SCH ×3 (00:45→11:38)
[2020-05-11] MEDS: HEPARIN SODIUM,PORCINE 5,000 UNIT/ML 1 ML VIAL SQ SCH ×3 (00:45→16:39)
[2020-05-11] MEDS: 1: MVI, ADULT NO.4 WITH VIT K 10 ML, TRACE (CONC-1ML/DOSE) 1 ML in AMINO ACID 4.25%-D10W IV SCH ×6 (01:56→13:17)
[2020-05-11] MEDS: HYDROmorphone 0.5 MG/0.5 ML SYRINGE IVP PRN ×4 (02:06→22:05)
--- NOTE | 2020-05-11 02:51 | PN ---
PROGRESS NOTE DATE OF SERVICE: 05/10/2020 REASON FOR FOLLOWUP: 1. Enterococcus urinary tract infection. 2. Leukocytosis. INTERVAL HISTORY: The patient is currently afebrile. The patient is hemodynamically stable. She is breathing comfortably on room air. No chest pain. No shortness of breath or cough. Some abdominal discomfort. No nausea, no vomiting or diarrhea. PHYSICAL EXAMINATION: Blood pressure 117/55 with a pulse of 86, temperature 97.6. She is 92% on room air. General description is an elderly female lying in bed in no distress. RESPIRATORY SYSTEM: Unlabored breathing, clear to auscultation anteriorly. HEART: S1, S2. Regular rate and rhythm. ABDOMEN: Soft, mild . LABS: Hemoglobin is 11.7, white count 24.9, BUN of 34, creatinine 0.88. DIAGNOSTIC IMPRESSION AND PLAN: Patient with Enterococcus faecalis urinary tract infection also with small bowel ileus, failure to respond to the medical therapy requiring laparotomy and lysis of adhesion. Patient is covered with Zosyn, this will be continue for now. White count showing a downward trend. To monitor closely. Continue supportive care. MMODL / IJN: [id number] /
[2020-05-11 05:54] LABS: Glucose,Whole Blood 140 mg/dL (75-99)
[2020-05-11] MEDS: PIPERACILLIN-TAZOBACTAM 3.375 GM in SODIUM CHLORIDE 0.9% 100 ML IVPB SCH ×3 (06:00→21:23)
[2020-05-11] MEDS: LACTATED RINGERS 1,000 ML IV SCH (07:39)
[2020-05-11] MEDS: PANTOPRAZOLE 40 MG/10 ML VIAL IV SCH ×2 (08:22→21:22)
[2020-05-11] MEDS: amLODIPine 5 MG TAB PO SCH ×2 (08:22→21:22)
[2020-05-11] MEDS: SODIUM BICARBONATE TAB 650 MG TAB PO SCH ×4 (08:22→21:22)
[2020-05-11 09:47] LABS: Basophils # (A) 0.1 k/uL (0-0.2); Basophils % (A) 1 %; Eosinophils # (A) 0.2 k/uL (0-0.7); Eosinophils % (A) 1 %; HCT 35.5 % (34.0-46.0); HGB 10.8 gm/dL (11.4-16.0); Lymphocytes # (A) 1.1 k/uL (1.0-4.8); Lymphocytes % (A) 8 %; MCH 28.7 pg (25.0-35.0); MCHC 30.5 g/dL (31.0-37.0); MCV 94.1 fL (80.0-100.0); Mean Platelet Volume 7.7; Monocytes # (A) 0.4 k/uL (0-1.0); Monocytes % (A) 3 %; Neutrophils # (A) 12.4 k/uL (1.3-7.7); Neutrophils % (A) 86 %; Platelet Count 405 k/uL (150-450); RBC 3.77 m/uL (3.80-5.40); RDW 13.9 % (11.5-15.5); WBC 14.5 k/uL (3.8-10.6)
[2020-05-11 10:01] LABS: Calcium 7.5 mg/dL (8.4-10.2); Magnesium 1.7 mg/dL (1.6-2.3); Phosphorus 3.5 mg/dL (2.5-4.5); Potassium 3.7 mmol/L (3.5-5.1)
[2020-05-11] MEDS: MAGNESIUM SULFATE-D5W PMX 1 GM in DEXTROSE/WATER 1 100ML.BAG IVPB SCH ×2 (11:38→13:24)
[2020-05-11 11:49] LABS: Glucose,Whole Blood 137 mg/dL (75-99)
--- NOTE | 2020-05-11 11:59 | P.PN ---
Subjective Progress Note Date: 05/11/20 Principal diagnosis: Small bowel obstruction Patient doing well today. She did have about 1. She is tolerating her clear liquids. She appears hungry. White blood cell count improved at 14.5. She is afebrile. Objective - Vital Signs Vital signs: Vital Signs Temp 97.6 F 05/11/20 07:50 Pulse 86 05/11/20 07:50 Resp 18 05/11/20 07:52 BP 123/58 05/11/20 07:50 Pulse Ox 93 L 05/11/20 07:50 Intake & Output 05/10/20 05/11/20 05/11/20 18:59 06:59 18:59 Intake Total 2201 30 810 Output Total 1600 950 Balance 601 -920 810 Weight 87 kg Intake: IV 30 30 10 Invasive Line 5 30 30 10 Intake, IV Titration 1011 Amount Mvi, Adult No.4 with Vit 1011 K 10 ml Trace (Conc-1Ml/ Dose) 1 ml In Amino Acid 4.25%-D10w+Lytes*E* 1,000 ml @ 83 mls/hr IV .BY DURATION [facility] Rx#: [id number] Oral 1160 800 Output: Urine 1600 950 Other: Voiding Method Indwelling Catheter Indwelling Catheter Indwelling Catheter # Voids 1 # Bowel Movements 1 - Exam Abdomen: Soft, nondistended, dressing clean and dry, nontender - Labs CBC & Chem 7: 05/11/20 09:10 05/11/20 09:10 Labs: Abnormal Lab Results - Last 24 Hours (Table) 05/10/20 05/10/20 05/11/20 Range/Units 11:57 17:36 00:06 WBC (3.8-10.6) k/uL RBC (3.80-5.40) m/uL Hgb (11.4-16.0) gm/dL MCHC (31.0-37.0) g/dL Neutrophils # (1.3-7.7) k/uL Sodium (137-145) mmol/L BUN (7-17) mg/dL Glucose (74-99) mg/dL POC Glucose (mg/dL) 183 H 142 H 161 H (75-99) mg/dL Calcium (8.4-10.2) mg/dL 05/11/20 05/11/20 05/11/20 Range/Units 05:51 09:10 09:10 WBC 14.5 H (3.8-10.6) k/uL RBC 3.77 L (3.80-5.40) m/uL Hgb 10.8 L (11.4-16.0) gm/dL MCHC 30.5 L (31.0-37.0) g/dL Neutrophils # 12.4 H (1.3-7.7) k/uL Sodium 131 L (137-145) mmol/L BUN 32 H (7-17) mg/dL Glucose 156 H (74-99) mg/dL POC Glucose (mg/dL) 140 H (75-99) mg/dL Calcium 7.5 L (8.4-10.2) mg/dL 05/11/20 Range/Units 11:47 WBC (3.8-10.6) k/uL RBC (3.80-5.40) m/uL Hgb (11.4-16.0) gm/dL MCHC (31.0-37.0) g/dL Neutrophils # (1.3-7.7) k/uL Sodium (137-145) mmol/L BUN (7-17) mg/dL Glucose (74-99) mg/dL POC Glucose (mg/dL) 137 H (75-99) mg/dL Calcium (8.4-10.2) mg/dL Assessment and Plan (1) Small bowel obstruction Narrative/Plan: Patient doing well today. Will advance diet. Continue physical therapy. Monitors leukocytosis. Current Visit: Yes Status: Acute Code(s): K56.609 - UNSP INTESTNL OBST, UNSP TO PARTIAL VERSUS COMPLETE OBST SNOMED Code(s): 352295004
[2020-05-11 13:28] VITALS: BMI 31.8
[2020-05-11] MEDS: FAT EMULSION 20% 250 ML in EMPTY BAG 1 BAG IV SCH (14:19)
[2020-05-11] MEDS: hydrALAZINE HCL 25 MG TAB PO SCH ×2 (16:40→21:22)
[2020-05-11 16:42] LABS: Glucose,Whole Blood 160 mg/dL (75-99)
--- NOTE | 2020-05-11 21:07 | PN ---
PROGRESS NOTE DATE OF SERVICE: 05/11/2020. She is a FULL CODE. Her age is 85 years old white female . Her date of 1935. 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 NEW DATA: She is a FULL CODE. Her height is 5 feet 5 inches. Her weight is 87 kg, BSA 1.94 m2, BMI 31.9 kg/m2. ALLERGIES: ACETAMINOPHEN AND HYDROCODONE and unknown reaction with these 2 medications. HISTORY: The patient is seen today and evaluated and found that she was started on a full liquid diet by the surgical group with the presence of abdominal bowel sounds as well as some flatus. She has no NG tube now and she is progressively improving. Currently, her vital signs indicating that temperature 98 F axillary and her heart rate 81 beats per minute. Her respiratory rate 18 per minute. Her blood pressure 115/54which is stable and her saturation is 96 per minute on the nasal cannula 2 L/minute. LABORATORY DATA: On the current laboratory indicating that her white count started to improve to currently of 14.5, WBC. Hemoglobin is 10.8 and hematocrit 35.5. Her platelet count is 405, which is normal. Neutrophil percentage 12.4, which is still high. However, it is generally improved. The sodium 131 and potassium 3.7, and carbon dioxide 25, and she had estimated glomerular filtration rate for non- 55 which is significant improvement from admission which she had acute renal failure with acute kidney injury and at that time, her creatinine was 3.32 and 3.64 and now she is the last one she had a creatinine of 0.96 which is significant improvement. She has also her calcium is 7.5 and phosphorus 3.5, and magnesium 1.7. The blood sugar has been monitored and with the POC blood glucose and ranging between 137-160. PHYSICAL EXAMINATION: The patient is conscious, alert, confused, and she has able to eat the full liquid diet as well. The head was normocephalic, atraumatic. Pupils equal, reactive. Conjunctivae were pink. Sclerae were nonicteric. Her oropharynx: She has natural teeth and neck was supple. No JVD and the chest were clear to auscultation and percussion and the heart was regular sinus rhythm. EXTREMITIES: No edema and positive pulses. She had the exploratory laparotomy and that has been with the presence of adhesions and complete obstruction of the distal jejunum and that has been resolved at this time after we have the adhesions removed. Dr. Witt did see her today, the surgeon and he did state that she had a small bowel obstruction and he started the diet and monitoring the patient. Also she was seen today by Infectious Disease Dr. Borjas, and he stated that she has Enterococcus urinary tract infection with the leukocytosis and she had a small bowel ileus with the adhesion and she responded to medical therapy as well as the exploratory laparotomy with the white count showed down trend. As well as seen by Dr. Waters, the canoe maker today and his impression that small bowel obstruction and status post surgery, underlying dementia and mildly abnormal troponin and continue the metoprolol IV as well as follow up the patient when necessary. Once the patient starts to eat, will be switching to oral medication. With the assessment of clinical improvement with the multiple medical problems and the plan continue the current treatment. Continue the start of the feeding and then future plan to adjust her medication orally once she eats and after that we will be discussing if she is able to go home or [facility] for 1 week or 2 and then after that to [facility]. The patient was on TPN, apparently has been discontinued by Dr. Witt. MMODL / IJN: [id number] /
[2020-05-11] MEDS: METOPROLOL TARTRATE 25 MG TAB PO SCH (21:22)
--- NOTE | 2020-05-11 22:44 | PN ---
PROGRESS NOTE DATE OF SERVICE: 05/11/2020 REASON FOR FOLLOWUP: Enterococcus urinary tract infection and leukocytosis. INTERVAL HISTORY: The patient is currently afebrile. The patient is breathing comfortably. The patient is more awake and alert. She has been started on clear liquids, which she has been tolerating. Denies having any chest pain, shortness of breath or cough. PHYSICAL EXAMINATION: Her blood pressure is 115/54 with a pulse of 81, temperature 98. She is 90% on room air. General description is an elderly female lying in bed in no distress. RESPIRATORY SYSTEM: Unlabored breathing. Clear to auscultation anteriorly. HEART: S1, S2. Regular rate and rhythm. ABDOMEN: Soft. No tenderness. No guarding or rigidity. LABS: Hemoglobin is 10.8, white count 14.5, BUN of 32, creatinine 0.96. DIAGNOSTIC IMPRESSION AND PLAN: Patient with enterococcus urinary tract infection, presented to hospital with small bowel ileus, failing medical therapy, status post laparotomy. The patient seems to have shown overall clinical improvement. White count shows a downward trend. To continue Zosyn and monitor clinical course closely. MMODL / IJN: [id number] /
[2020-05-11 23:53] LABS: Glucose,Whole Blood 144 mg/dL (75-99)
[2020-05-12] MEDS: INSULIN ASPART (NovoLOG) 100 UNIT/ML VIAL SQ SCH ×4 (00:46→17:14)
[2020-05-12] MEDS: HEPARIN SODIUM,PORCINE 5,000 UNIT/ML 1 ML VIAL SQ SCH ×3 (00:46→15:58)
[2020-05-12] MEDS: 1: MVI, ADULT NO.4 WITH VIT K 10 ML, TRACE (CONC-1ML/DOSE) 1 ML in AMINO ACID 4.25%-D10W IV SCH ×3 (01:35)
[2020-05-12 06:35] LABS: Glucose,Whole Blood 134 mg/dL (75-99)
[2020-05-12] MEDS: PIPERACILLIN-TAZOBACTAM 3.375 GM in SODIUM CHLORIDE 0.9% 100 ML IVPB SCH ×2 (06:58→13:31)
[2020-05-12] MEDS: amLODIPine 5 MG TAB PO SCH ×2 (09:57→22:42)
[2020-05-12] MEDS: hydrALAZINE HCL 25 MG TAB PO SCH ×3 (09:57→22:43)
[2020-05-12] MEDS: PANTOPRAZOLE 40 MG/10 ML VIAL IV SCH ×2 (09:57→22:43)
[2020-05-12] MEDS: METOPROLOL TARTRATE 25 MG TAB PO SCH ×2 (09:57→22:42)
[2020-05-12] MEDS: SODIUM BICARBONATE TAB 650 MG TAB PO SCH ×4 (09:58→22:42)
[2020-05-12 11:56] LABS: Glucose,Whole Blood 103 mg/dL (75-99)
--- NOTE | 2020-05-12 16:14 | P.PN ---
Subjective Progress Note Date: 05/12/20 Principal diagnosis: Small bowel obstruction Patient still confused. He is more alert however. Tolerating diet. No nausea or vomiting. Objective - Vital Signs Vital signs: Vital Signs Temp 98.4 F 05/12/20 15:42 Pulse 79 05/12/20 15:42 Resp 16 05/12/20 15:43 BP 135/76 05/12/20 15:42 Pulse Ox 93 L 05/12/20 15:42 Intake & Output 05/11/20 05/12/20 05/12/20 18:59 06:59 18:59 Intake Total 3975 30 1101.083 Output Total 300 300 Balance 3675 -270 1101.083 Weight 87 kg Intake: IV 794 30 10 Invasive Line 5 30 30 10 Mvi, Adult No.4 with Vit 664 K 10 ml Trace (Conc-1Ml/ Dose) 1 ml In Amino Acid 4.25%-D10w+Lytes*E* 1,000 ml @ 83 mls/hr IV .BY DURATION [facility] Rx#: [id number] Piperacillin-Tazobactam 3 100 .375 gm In Sodium Chloride 0.9% 100 ml @ 25 mls/hr IVPB Q8H [facility] Rx#: [id number] Intake, IV Titration 1011 491.083 Amount Mvi, Adult No.4 with Vit 1011 491.083 K 10 ml Trace (Conc-1Ml/ Dose) 1 ml In Amino Acid 4.25%-D10w+Lytes*E* 1,000 ml @ 83 mls/hr IV .BY DURATION [facility] Rx#: [id number] Oral 2170 600 Output: Urine 300 300 Uretheral (Hernandez) 300 300 Other: Voiding Method Bedside Commode Diaper Diaper Incontinent Incontinent # Voids 1 1 # Bowel Movements 1 1 - Exam Abdomen: Soft, nondistended, incision clean and dry - Labs CBC & Chem 7: 05/11/20 09:10 05/11/20 09:10 Labs: Abnormal Lab Results - Last 24 Hours (Table) 05/11/20 05/11/20 05/12/20 Range/Units 16:38 23:51 06:34 POC Glucose (mg/dL) 160 H 144 H 134 H (75-99) mg/dL 05/12/20 Range/Units 11:54 POC Glucose (mg/dL) 103 H (75-99) mg/dL Assessment and Plan (1) Small bowel obstruction Narrative/Plan: Patient doing better at this time. Continue diet as tolerated. Discharge planning in process. Current Visit: Yes Status: Acute Code(s): K56.609 - UNSP INTESTNL OBST, UNSP TO PARTIAL VERSUS COMPLETE OBST SNOMED Code(s): 833839298
[2020-05-12 17:14] LABS: Glucose,Whole Blood 113 mg/dL (75-99)
--- NOTE | 2020-05-12 18:08 | PN ---
PROGRESS NOTE DATE OF SERVICE: 05/12/2020 NEW DATA: FULL CODE. Height is 5 feet 5 inches, weight 87 kg, BSA 1.94 m2, BMI 31.9 kg/m2. ALLERGIES: ACETAMINOPHEN WITH HYDROCODONE. The patient is seen today and evaluated. I did discuss her case in detail with her [id number], who is her caregiver. The patient today is awake, alert, sitting in the bed. They permitted her to eat and gradually progress. However, she does not have regular meals yet but she is able to communicate and walk. She has positive bowel sounds. She had two bowel movements and is passing gas. The surgeon at this time signed off with a plan for Infectious Disease to evaluate the antibiotic. Subsequently, if we have a bed in the facility of the family's choice, we will be discharging the patient with the underlying rehabilitation important. On the current physical examination, she has temperature 98.4 F oral. Pulse rate 79 and respiratory rate 16 and blood pressure 135/76. Oxygen saturation 93% on the room air. LABORATORY: Her blood sugar has been fairly well controlled with the last blood sugar ranging between [address] Witt, the surgeon who did the surgery today, stated that her problem was small bowel obstruction and she is status post exploratory laparotomy. Her TPN was already discontinued yesterday and she was seen yesterday by Dr. Borjas, who said in his note that she has Enterococcus faecalis in the UTI and small bowel ileus with the exploratory laparotomy. White count was elevated and there is a downward trend; however, we do not have today's white count. We will be waiting for his opinion and I will be ordering for tomorrow the CBC with differential as well as the chemistry profile. The last lab on 05/11 his white count was 14.5 and hemoglobin was 10.8 with anemia and with her illness and procedure, and her sodium was 131, mildly hyponatremic, but she was of course n.p.o. with an NG tube. The blood sugar was fairly well controlled. The blood sugar in the morning was 156 and she was on the IV on TPN and high sugar IV. Her magnesium on 05/11 was 1.7. PHYSICAL EXAMINATION: Today patient is conscious, alert, able to communicate. She has dementia and confusion. Her daughter in-law is her caregiver and her son is the POA, the of her [id number]. They decided to go to advanced care, [facility] or to any other facility. They are still discussing it and her [id number] with discuss which facility that the patient will be going to with the help of the professor of social work and business planner. Nothing is set for today and the patient will need physical therapy and also to be up to the chair and ambulate if possible as well as the place of service and she needs physical therapy at home as well if she goes home or to any different facility. Meanwhile, laboratory will be obtained. OROPHARYNX: Natural teeth. Neck was supple. No JVD. No thyromegaly. No lymphadenopathy. Trachea midline. CHEST: Clear to auscultation and percussion. Heart was regular sinus rhythm. Abdomen was soft. Positive bowel sounds. She had the postoperative scar from exploratory laparotomy with lysis of adhesion. EXTREMITIES: No edema and positive pulses. The patient was on also heparin subcutaneously. We will be adjusting her medication before discharge. Advance the diet as tolerated. Will plan for discharge tomorrow if the bed is available. That will work with the business planner. JANIS / LEYLA: [id number] /
[2020-05-12 23:25] VITALS: TEMP 98.4
[2020-05-13] MEDS: HEPARIN SODIUM,PORCINE 5,000 UNIT/ML 1 ML VIAL SQ SCH ×2 (00:38→08:58)
--- NOTE | 2020-05-13 00:45 | PN ---
PROGRESS NOTE DATE OF SERVICE: 05/12/2020 REASON FOR FOLLOWUP: Enterococcus urinary tract infection. INTERVAL HISTORY: Patient is currently afebrile. The patient is breathing comfortably. Has been tolerating her diet. No nausea, no vomiting. No chest pain. No shortness of breath or cough. PHYSICAL EXAMINATION: Blood pressure 150/73 with a pulse of 73, temperature 98.1. She is 93% on room air. General description: The patient is an elderly female lying in bed in no distress. Respiratory system: Unlabored breathing, clear to auscultation anteriorly. Heart S1, S2. Regular rate and rhythm. Abdomen soft, no tenderness. LABS: No new labs have been obtained today. DIAGNOSTIC IMPRESSION AND PLAN: Patient with Enterococcus urinary tract infection, also with small bowel ileus failing medical therapy status post laparotomy and lysis of adhesions. The patient is currently clinically improving. We will switch antibiotic therapy to oral Augmentin 875 b.i.d. for about another 5-7 days on discharge. Continue supportive care. MMODL / IJN: [id number] /
[2020-05-13 08:17] LABS: Calcium 7.6 mg/dL (8.4-10.2); Potassium 4.2 mmol/L (3.5-5.1)
[2020-05-13 08:19] LABS: Basophils % (A) 0 %; Eosinophils # (A) 0.1 k/uL (0-0.7); Eosinophils % (A) 1 %; HGB 9.9 gm/dL (11.4-16.0); Lymphocytes # (A) 1.2 k/uL (1.0-4.8); Lymphocytes % (A) 11 %; MCH 29.1 pg (25.0-35.0); MCHC 30.9 g/dL (31.0-37.0); MCV 94.2 fL (80.0-100.0); Mean Platelet Volume 7.9; Monocytes # (A) 0.6 k/uL (0-1.0); Monocytes % (A) 6 %; Neutrophils # (A) 8.2 k/uL (1.3-7.7); Neutrophils % (A) 79 %; Platelet Count 435 k/uL (150-450); RDW 13.7 % (11.5-15.5); WBC 10.4 k/uL (3.8-10.6)
[2020-05-13 08:54] VITALS: BP 172/77; PULSE 76; RESP 18
[2020-05-13] MEDS: METOPROLOL TARTRATE 25 MG TAB PO SCH (08:58)
[2020-05-13] MEDS: PANTOPRAZOLE 40 MG/10 ML VIAL IV SCH (08:58)
[2020-05-13] MEDS: hydrALAZINE HCL 25 MG TAB PO SCH (08:58)
[2020-05-13] MEDS: amLODIPine 5 MG TAB PO SCH (08:59)
[2020-05-13] MEDS: SODIUM BICARBONATE TAB 650 MG TAB PO SCH (08:59)
[2020-05-13] MEDS ORDERED: AMOXIC-POT CLAV 875-125MG 1 EACH TAB PO SCH (09:00)
--- NOTE | 2020-05-13 12:04 | P.PN ---
Subjective Progress Note Date: 05/13/20 Principal diagnosis: Small bowel obstruction Patient still confused. She is alert. Denies pain. Tolerating diet. Objective - Vital Signs Vital signs: Vital Signs Temp 98.4 F 05/12/20 23:19 Pulse 76 05/13/20 08:00 Resp 18 05/13/20 08:00 BP 172/77 05/13/20 08:00 Pulse Ox 91 L 05/13/20 08:00 Intake & Output 05/12/20 05/13/20 05/13/20 18:59 06:59 18:59 Intake Total 1519.083 Balance 1519.083 Intake: IV 10 Invasive Line 5 10 Intake, IV Titration 491.083 Amount Mvi, Adult No.4 with Vit 491.083 K 10 ml Trace (Conc-1Ml/ Dose) 1 ml In Amino Acid 4.25%-D10w+Lytes*E* 1,000 ml @ 83 mls/hr IV .BY DURATION GUILLERMO Rx#: [id number] Oral 1018 Other: Voiding Method Diaper Diaper Diaper Incontinent Incontinent Incontinent # Voids 1 1 # Bowel Movements 1 1 - Exam Abdomen: Soft, nondistended, incision clean and dry, nontender - Labs CBC & Chem 7: 05/13/20 07:14 05/13/20 07:14 Labs: Abnormal Lab Results - Last 24 Hours (Table) 05/12/20 05/13/20 05/13/20 Range/Units 17:12 07:14 07:14 RBC 3.40 L (3.80-5.40) m/uL Hgb 9.9 L (11.4-16.0) gm/dL Hct 32.0 L (34.0-46.0) % MCHC 30.9 L (31.0-37.0) g/dL Neutrophils # 8.2 H (1.3-7.7) k/uL Sodium 135 L (137-145) mmol/L BUN 24 H (7-17) mg/dL POC Glucose (mg/dL) 113 H (75-99) mg/dL Calcium 7.6 L (8.4-10.2) mg/dL Assessment and Plan (1) Small bowel obstruction Narrative/Plan: Patient doing well from a surgical point of view. Diet as tolerated at this point. Continue physical therapy. Stable for discharge from my point. Current Visit: Yes Status: Acute Code(s): K56.609 - UNSP INTESTNL OBST, UNSP TO PARTIAL VERSUS COMPLETE OBST SNOMED Code(s): 642849247
--- NOTE | 2020-05-13 12:50 | P.DS ---
Providers Date of admission: 05/02/20 01:45 Expected date of discharge: 05/13/20 Attending physician: Nic Contreras Consults: 05/02/20 01:43 Consult Physician Routine Consulting Provider: Cathy Lucas Consult Reason/Comments: arf Do you want consulting provider notified?: Yes 05/02/20 18:03 Consult Physician Urgent Consulting Provider: Rui Witt Consult Reason/Comments: Small bowel obstruction, acute tympanitic abdomen. Do you want consulting provider notified?: Yes 05/04/20 09:59 Consult Physician Stat Consulting Provider: Gladis Castellon Consult Reason/Comments: Elevated troponin and abnormal pro-BMP Do you want consulting provider notified?: Yes 05/04/20 13:42 Consult Physician Urgent Consulting Provider: Javier Borjas Consult Reason/Comments: Enterococcus faecalis urinary infection, small bowel obstruction Do you want consulting provider notified?: Yes Primary care physician: Nic Contreras Dictation of discharge summary by [facility] Final diagnoses: #1 acute kidney injury on the top of chronic kidney disease stage 2-3. #2 acute small bowel obstruction, distal she'll Odgen with the underlying adhesion. #3 Status post exploratory laparotomy surgical he with the open incision and lysis adhesion. #4 moderate protein calorie deficiency due to being nothing by mouth. #5 anemia associated with surgery. #6 leukocytosis resolved. #7 urinary tract infection with Enterococcus faecalis. With negative blood culture. #8 showed total and supplementation with peripheral TPN. #9 electrolyte imbalance has been corrected.. #10 dementia Alzheimer's type. 11 underlying degenerative arthritis. With the previous history of spinal stenosis. And walking stability and the need for physical therapy. #12 consideration of sepsis with the high leukocytosis. #13 severe dehydration. With the admission creatinine 3.32/3.64 and the BUN 115/117. #14 hypertension was hypertensive heart disease. ALLERGY acetaminophen and hydrocodone. ER presentation: Patient go to the emergency room she was followed as outpatient by visiting physician, and I use to take care of her in the past, family requested to see her. Main complaint severe dehydration and nausea and vomiting and abdominal pain. Hospital course: Consultation with the following: GI, surgery, infectious disease, cardiology,. Patient placed on nothing by mouth as well as NG tube and culture of the urine as well as blood culture. With no resolution of her small bowel obstruction silent abdomen. Dr. Witt took her for exploratory laparotomy and found adhesion with no complete obstruction of the distal Alexandra vision and he resolved with adhesion and patient subsequently regained her bowel sound after 2 days of surgery and subsequently advanced to diet and able to eat and started to have flatus and a bowel movement. In regard of acute kidney injury consultation with nephrology and adjusted as her IV fluid and subsequently patient rehydrated with occasional increase the volume overload which backup of the IV fluid with the given Lasix to diurese and a Hernandez catheter was placed temporary during these acute phase. Consultation with Dr. Borjas infectious disease obtain with the presence of Enterococcus faecalis and at that time patient because of sepsis suspicious started on Zosyn and the infectious disease continue Zosyn with the continuation as outpatient of Augmentin 875 mg twice a day prescription given. Cardiology also consultation was obtained and adjusted medication while she is nothing by mouth for surgery and post surgery currently stable. No cardiac arrhythmia at this time Dr. De La Fuente the surgeon he cleared her for discharge. Dr. Borjas infectious disease cleared her for discharge. And the GI with the consideration sign off has no actually GI bleed. This patient stability will be discharged home today. The family arrangement, and need for further physical therapy and ambulation continue medication. Follow-up therapy and office visit in 1 week and follow up with Dr. De La Fuente the surgeon in one week. Patient stable for discharge today. Prescription given. On examination on discharge: Laboratory her hemoglobin 9.9 with hematocrit 32.0, white count is normalized 10.4. Platelet count is normal for 35. Chemistry-cordero the sodium 135, potassium 4.2 and BUN 24 and creatinine 0.94 with the estimated glomerular filtration rate 56 with a baseline her blood sugar was 86 this morning and no evidence of diabetes. On exam patient conscious alert oriented 3 Head was normocephalic atraumatic pupils equal reactive oropharynx natural teeth. Neck was supple no JVD no thyromegaly no lymphadenopathy trachea midline. Chest was clear to auscultation and percussion. Heart regular sinus rhythm no dysrhythmia. Abdomen stables of the abdomen with midline incision vertical from the explora tory laparotomy noted significant didn't tenderness and positive bowel sounds no organ enlargement however she had history of cholelithiasis but not symptomatic. Extremities: No edema positive pulses and able to move upper and lower extremities and the need for for further physical therapy. Neurologically: Dementia Alzheimer's type and need full supportive vision as well as physical therapy with the walking with a walker for stability. Assessment and plan #1 patient stable general condition for discharge number to follow-up in one week with Dr. Ross and Dr. Witt. #2 antibiotic given for Augmentin 875 mg by mouth twice a day for 1 week duration recommendation of Dr. Borjas infectious disease. Continue home medication for the hypertension. Patient Condition at Discharge: Serious Plan - Discharge Summary Discharge Rx Participant: No New Discharge Prescriptions: New hydrALAZINE HCL [Apresoline] 25 mg PO TID #90 tab Amoxic-Pot Clav 875-125Mg [Augmentin 875-125] 1 each PO Q12HR 7 Days #14 tab Metoprolol Tartrate [Lopressor] 25 mg PO BID #30 tab Sodium Bicarbonate Tab 650 mg PO QID #30 tab Continue Ergocalciferol [Vitamin D2 (DRISDOL)] 50,000 units PO MO@0800 Losartan Potassium 50 mg PO DAILY@0800 DULoxetine HCL [Cymbalta] 30 mg PO BID@799,1999 Atorvastatin [Lipitor] 20 mg PO HS@1999 amLODIPine BESYLATE 5 mg PO HS@1999 Cyanocobalamin (Vitamin B-12) [Vitamin B-12] 500 mcg PO DAILY@0800 Discontinued Metoprolol Succinate (ER) [Toprol XL] 25 mg PO DAILY@0800 Discharge Medication List Atorvastatin [Lipitor] 20 mg PO HS@199905/02/20 [History] Cyanocobalamin (Vitamin B-12) [Vitamin B-12] 500 mcg PO DAILY@0800 05/02/20 [History] DULoxetine HCL [Cymbalta] 30 mg PO BID@799,199905/02/20 [History] Ergocalciferol [Vitamin D2 (DRISDOL)] 50,000 units PO MO@0800 05/02/20 [History] Losartan Potassium 50 mg PO DAILY@0800 05/02/20 [History] amLODIPine BESYLATE 5 mg PO HS@199905/02/20 [History] Amoxic-Pot Clav 875-125Mg [Augmentin 875-125] 1 each PO Q12HR 7 Days #14 tab 05/13/20 [Rx] Metoprolol Tartrate [Lopressor] 25 mg PO BID #30 tab 05/13/20 [Rx] Sodium Bicarbonate Tab 650 mg PO QID #30 tab 05/13/20 [Rx] hydrALAZINE HCL [Apresoline] 25 mg PO TID #90 tab 05/13/20 [Rx] Follow up Appointment(s)/Referral(s): Rui Witt MD [Medical Doctor] - 1 Week Nic Contreras MD [Primary Care Provider] - 1 Week Discharge Disposition: TRANSFER TO SNF/ECF
--- NOTE | 2020-05-13 16:33 | PN ---
PROGRESS NOTE DATE OF SERVICE: 05/13/2020 REASON FOR FOLLOWUP: Streptococcus urinary tract infection and small bowel ileus. INTERVAL HISTORY: The patient was seen on rounds this morning. The patient overall was feeling better, breathing comfortably. No chest pain or cough. No nausea, vomiting, abdominal pain or any diarrhea. PHYSICAL EXAMINATION: Her blood pressure is 172/77, pulse of 76, temperature 98. She is 91% on room air. General description is a middle-aged female lying in bed in no distress. RESPIRATORY SYSTEM: Unlabored breathing. Clear to auscultation anteriorly. HEART: S1, S2. Regular rate and rhythm. ABDOMEN: Soft. No tenderness. LABS: Hemoglobin 9.1, white count 10.4, creatinine 0.94. DIAGNOSTIC IMPRESSION AND PLAN: Patient with Streptococcus urinary tract infection in this patient who also has a component of small bowel ileus, failing to respond to medical therapy, status post laparotomy and lysis of adhesions. Postoperatively the patient had a significant jump in the white count; however, antibiotic was switched to Augmentin; to continue for about a week to finish course of therapy. Close outpatient followup. MMODL / IJN: [id number] /
--- NOTE | 2020-05-14 12:45 | CDI ---
Documentation Clarification Form Date: 05/14/20 From: Magda Barkley CCS Phone: If you have a question about this query, please contact Jordana Keller, Director Labor Standards at [phone] between 8am and 5pm. Admit Date: 05/02/20 Discharge Date: 05/13/20 Patient Name: Kaia Serrano Visit Number: [id number] ATTENTION: The Clinical Documentation Specialists (CDI) and [facility] Coding Staff appreciate your assistance in clarifying documentation. Please respond to the clarification below the line at the bottom and electronically sign. The CDI & [facility] Coding staff will review the response and follow-up if needed. Please note: Queries are made part of the Legal Health Record. If you have any questions, please contact the author of this message via ITS. Dear Dr. Contreras, Altered Mental Status was documented in the H&P, ED, PNs. ED documents: Patient is a poor historian secondary to level of consciousness, worsening level of responsiveness, altered mental status H&P documents: Patient seen and her son as well as her umyqhjyb-se-yke at bedside. She has altered mental status with worsening of her dementia and lethargy.But she is alert with the possible effect of sepsis versus the elevated BUN. PNs document: change of mental status with the possible associated with sepsis and elevated pro-calcitonin. History/Risk Factors: Sepsis, UTI, Dementia, CHF, HTN, Acidosis, STEVIE Clinical Indicators: Decreased responsiveness, AMS Treatment: Narcan 02 mg IV PRN, Monitor In your professional opinion, please clarify the etiology of the Altered Mental Status, if known. Metabolic Encephalopathy Delirium (specify cause): Dementia Altered Mental Status Other condition (please specify) Unable to determine Progressive dementia with the family request no code and transferred to hospice house as the hospitalist consultation could not take care of him. HUY
--- NOTE | 2020-05-14 13:12 | CDI ---
Documentation Clarification Form Date: 05/14/20 From: Magda Barkley CCS Phone: If you have a question about this query, please contact Jordana Keller, Agricultural Crop Farm Manager at [phone] between 8am and 5pm. Admit Date: 05/02/20 Discharge Date:05/13/20 Patient Name: Kaia Serrano Visit Number: [id number] ATTENTION: The Clinical Documentation Specialists (CDI) and [facility] Coding Staff appreciate your assistance in clarifying documentation. Please respond to the clarification below the line at the bottom and electronically sign. The CDI & [facility] Coding staff will review the response and follow-up if needed. Please note: Queries are made part of the Legal Health Record. If you have any questions, please contact the author of this message via ITS. Dear Dr. Contreras, The patient presented with the following UTI, Sepsis, Bowel obstruction, Aspiration PNA. History/Risk Factors: CKD, CHF, HTN, STEVIE, Dementia, Malnutrition Clinical Indicators: Hypotensive, AMS, Acidosis WBC: 10.6, 13.0, 30.0, 28.1 Lactic acid: 2.3, 1.7 Blood cultures: No growth after 144 hours Vitals signs on admission: BP 100/81, RR 14, OH 65, Temp 97.6, O2 Sat 90 Treatment: Zosyn 3.375 gm IVPB Q 8HR ID Consult: [place] In your professional opinion, please clarify if these findings signify one of the following conditions, whether the condition is POA, and cause, if known: Condition Sepsis ruled out SIRS, without underlying infectious process Sepsis due to UTI, POA Sepsis due to POA Severe Sepsis Other, please specify Unable to determine Present on Admission Yes No Identify the (suspected) organism Link or clarify if there is associated (due to/with): Organ failure Shock SIRS Criteria (2 or more of the following may indicate SIRS): -Temperature < 96.8F (36C) or > 101.0F (38.3C) -Heart Rate > 90 bpm -Respiratory Rate > 20 breaths/min or PaCO2 < 32 mmHg -White Blood Cell Count > 12,000 or < 4,000 cells/mm3 or > 10% bands -Lactate >2.0 mmol/L (>4.0 is equivalent to septic shock) Sepsis on admission with the association of UTI and small bowel obstruction distal. Present on admission, yes MTDD
== END 2020-05-13 14:40 | disposition home health service (06) | DRG 853 ==
LOC: EC 23:57 → 3SCARD 05-02 01:45 → UNDODISIN 05-11 14:22
PROVIDERS: ADMIT Internal Medicine; ATTEND Internal Medicine
PROC: 0D9670Z Drainage of Stomach with Drainage Device, Via Natural or Artificial Opening (ICD-10-PCS; 2020-05-02)
PROC: 05HF33Z Insertion of Infusion Device into Left Cephalic Vein, Percutaneous Approach (ICD-10-PCS; 2020-05-06)
PROC: 3E0336Z Introduction of Nutritional Substance into Peripheral Vein, Percutaneous Approach (ICD-10-PCS; 2020-05-07)
PROC: 0DN80ZZ Release Small Intestine, Open Approach (ICD-10-PCS; principal; 2020-05-07 15:45)
DX: A41.51 Sepsis due to Escherichia coli [E. coli] (principal); I50.31 Acute diastolic (congestive) heart failure; J69.0 Pneumonitis due to inhalation of food and vomit; K56.52 Intestinal adhesions [bands] with complete obstruction; E44.0 Moderate protein-calorie malnutrition; N17.9 Acute kidney failure, unspecified; E87.2 Acidosis; K92.0 Hematemesis; I13.0 Hypertensive heart and chronic kidney disease with heart failure and stage 1 through stage 4 chronic kidney disease, or unspecified chronic kidney disease; E87.1 Hypo-osmolality and hyponatremia; N39.0 Urinary tract infection, site not specified; E83.39 Other disorders of phosphorus metabolism; D63.1 Anemia in chronic kidney disease; I11.0 Hypertensive heart disease with heart failure; N18.3 Chronic kidney disease, stage 3 (moderate); G30.9 Alzheimer's disease, unspecified; I95.9 Hypotension, unspecified; F02.80 Dementia in other diseases classified elsewhere, unspecified severity, without behavioral disturbance, psychotic disturbance, mood disturbance, and anxiety; E86.0 Dehydration; E78.5 Hyperlipidemia, unspecified; R32 Unspecified urinary incontinence; F41.1 Generalized anxiety disorder; E86.1 Hypovolemia; R53.81 Other malaise; K80.20 Calculus of gallbladder without cholecystitis without obstruction; E87.6 Hypokalemia; I35.0 Nonrheumatic aortic (valve) stenosis; M47.817 Spondylosis without myelopathy or radiculopathy, lumbosacral region; E16.2 Hypoglycemia, unspecified; M48.00 Spinal stenosis, site unspecified; R79.89 Other specified abnormal findings of blood chemistry; Z68.31 Body mass index [BMI] 31.0-31.9, adult; Z79.899 Other long term (current) drug therapy; Z90.710 Acquired absence of both cervix and uterus; Z87.440 Personal history of urinary (tract) infections; Z71.3 Dietary counseling and surveillance; Z78.1 Physical restraint status; Z88.6 Allergy status to analgesic agent; Z88.5 Allergy status to narcotic agent
CPT/HCPCS: 36410; 36415; 71045; 74018; 74019; 74176; 74248; 76937; 80048; 80053; 80061; 81001; 82140; 82271; 82306; 82330; 83605; 83690; 83735; 83880; 84100; 84132; 84145; 84478; 84484; 85025; 85610; 85730; 86850; 86900; 86901; 87040; 87077; 87086; 87186; 87324; 93005; 93306; 96361; 96374; 96375; 99291